=== PATIENT | male | born 1970 | race Caucasian/White ===

== ENCOUNTER → 2017-11-30 11:14 | Outpatient (CLI) | payer OTHER, SELFPAY ==
[2017-11-30 10:12] LABS: Pathologist Comment May follow
[2017-11-30 10:53] LABS: Synovial Fld Mononuclear WBC % 96.2 %; Synovial Fld Polynuclear WBC # 0.024 10^3/ul; Synovial Fld Polynuclear WBC % 3.8 %
[2017-11-30 11:46] LABS: AUTO B FLUID DILUENT BKGD CT WBC <0.1 RBC <0.01 (W<.1,R<.01)
[2017-11-30 11:47] LABS: Appearance /Synovial Fluid Clear (CLEAR); Color / Synovial Fluid Yellow (Pale Yellow); Source / Synovial Fluid RIGHT KNEE; Source- Body Fluid SYNOVIAL
[2017-11-30 11:48] LABS: RBC /Synovial Fluid 442 /mm3 (0)
[2017-11-30 11:59] LABS: Lymph 2 %; Monocyte /Synovial Fluid 2 %; Neutrophil 16 % (0-25); Other Cell /Synovial Fluid 80 %
[2017-11-30 12:03] LABS: Body Fluid QC Type(s) BF1Q,BF2Q
[2017-12-01 10:05] LABS: Pathologist Review Reviewed
== END ==
PROVIDERS: Visit Provider Orthopaedic Surgery
DX: S83.281D Other tear of lateral meniscus, current injury, right knee, subsequent encounter (principal); X58.XXXD Exposure to other specified factors, subsequent encounter
CPT/HCPCS: 87070; 87075; 87205; 89050; 89051; 89060

== ENCOUNTER 2018-03-21 10:23 | Day surgery (SDC) | payer OTHER, SELFPAY ==
[2018-03-21] VITALS (8 sets, daily range): BP systolic 131–149; BP diastolic 87–101; PULSE 61–75; RESP 16–18; TEMP 36.9–37.4; O2SAT 92–100; BMI 35.0
--- NOTE | 2018-03-21 13:07 | OP.PCM_ITS ---
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 Patient has failed conservative treatment MRI was questionable for meniscus tear on the medial side as well as some arthritis and some synovitis. Today he also complains of a lot of anterior knee pain specifically anterior lateral anterior medial worse going up steps also pain positive Celestin sign on the physical exam. Patient is failed conservative treatment like to proceed with right knee arthroscopy repair is indicated. Risks benefits and alternatives surgery discussed with patient. Risks including but not limited to blood loss, blood clot, infection, neurovascular injury, failure procedure, loss of life and loss of limb. Patient is aware would like proceed with right knee arthroscopy repair is indicated. Operative note Patient seen and examined preoperative holding area. Right knee was marked. Patient is brought to the operating room and placed supine on the operating room table. Signing, anesthesia, antibiotics were administered. The right knee was prepped and draped in usual sterile fashion with a tourniquet was around his upper thigh. We marked out our bony landmarks and our anterior lateral anterior medial portal placement. The right leg was elevated exsanguinated and tourniquet was raised her pressure 250 torr. Timeout was performed. We then began our diagnostic arthroscopy. We created an anterior lateral portal. We get evaluated the patellofemoral joint. He has some fibrillated changes grade 2 on the inferior aspect of his patella he had a 1 x 0.4 lesion on his trochlea there is no kissing lesion on the patella. The medial moved to the medial joint line. Excuse me before that we did look in the medial lateral gutters there were no loose bodies. Then moved to our medial joint line created an anterior medial portal under direct visualization. The portals were difficult to create as is he has extensive synovitis in his anterior medial anterior lateral gutters. We then used a shaver to resect back the shaved inside the extensive synovitis we had both anterior lateral anteromedial will better visualize his meniscus tear. He had unstable posterior horn meniscus tear that was probed. We then resected the unstable pieces and noted that he had actually had a right tear at the insertion of the meniscus onto the capsule. We inserted a rasp to rasp the tear and then placed to 360 FasT-Fix reverse curved devices and then reprobed the area which was stable after fixing with the 2 sutures and all inside anchors. ACL PCL were present within the notch. The lateral meniscus was intact as to but stable to probing with a little bit of fibrillated little bit of fraying this was gently resected with a shaver. The lateral meniscus was intact and stable probing. The popliteus tendon was intact. The lateral femoral condyle lateral tibial plateau were intact stable probing. His medial femoral condyle had grade 3 changes in about a 4-4 x 2 cm articulating aspect of his medial femoral condyle and some fibrillated changes on his medial tibial plateau and some thinning grade 3 thinning in the central portion as well. We may have moved back to the trochlear lesion. Sugar lesion again is identified we then used a curette to scrape off the calcified cartilage layer we then microfracture the trochlea with microfracture picks. We then turn off the water to ensure that we had a deep enough picks and we did which we did have. We then irrigated with copious copious amounts of sterile saline. Sterile dressings were the portals were closed with interrupted 4-0 nylon stitches the portals the sterile dressings were applied and a brace was applied 0-30 while seated and straight leg locked in extension during ambulation at night. Tourniquet was deflated for a total working time of 43 minutes. Patient tolerated procedure well there were no complications transferred to recovery room in stable condition. Next Postoperative note Pictures given to Pharmacy has prescriptions Call with increased pain numbness tingling or further issues arise Toe-touch weightbearing right leg This note was generated with [employer] dictation software. It may contain incorrect words, spelling, and punctuation that were not noted in checking the note before signing.
--- NOTE | 2018-03-21 13:07 | DCINST_ITS ---
Discharge Diet: No Restrictions - remove dressing in 4 days and apply bandaids to incision sites, call with increased pain, numbness, calf pain or if other issues arise, may get incision wet after 4 days, ttwb right leg with brace locked in extension and locked in extension at night; may move knee 0-30 in brace Discharge Activity: May Not Drive May shower in (days): 1 Ice area for (Minutes): 20 - Every hour while awake. Weight Bearing Status: Weight bearing as tolerated Keep extremity elevated above heart level: Operative Extremity Call your doctor if your incision/area has: Continuous Slow Oozing, Sudden Increased Bleeding, Increased Pain/ Swelling, Increased Redness, Foul Smelling Discharge Call your doctor if you observe: Fever of 101 or Higher, Coldness, Increased Pain, Numbness or Tingling, Change in Color, Calf discomfort Allergies/Adverse Reactions: Allergies No Known Allergies Allergy (Verified 03/14/18 11:03) Medications to take at Discharge Oxycodone HCl/Acetaminophen [Percocet 5/325] 1 - 2 tablet PO Q6H PRN PRN 5 Days #40 tablet 03/21/18 The following prescriptions were given: Oxycodone HCl/Acetaminophen [Percocet 5/325] 1 - 2 tablet PO Q6H PRN PRN 5 Days #40 tablet PRN Reason: Pain Primary Care Physician: Leonides Galvez MD [Primary Care Provider] - Test Results: Test results from this visit will be discussed in further detail at your follow- up appointment, if applicable. Please Follow Up With: Carley Deras, DO - [phone]
[2018-03-21] MEDS: Cefazolin 2 GM in 0.9% Normal Saline 100 ML IV (13:32)
[2018-03-21] MEDS: Mupirocin Ointment 22gm Tube 1 APPLIC (13:36)
[2018-03-21] MEDS: Bupiv/Epi 0.5% Mpf 30 ML Vial (14:45)
== END 2018-03-21 16:55 | disposition home or self-care (01) ==
LOC: SDC 10:25 → AC 10:25
PROVIDERS: Family Provider Family Medicine; PCP Family Medicine; Referring Provider Orthopaedic Surgery; Visit Provider Orthopaedic Surgery
PROC: (CPT 29870; principal; 2018-03-21 11:55)
DX: S83.241A Other tear of medial meniscus, current injury, right knee, initial encounter (principal); S83.281A Other tear of lateral meniscus, current injury, right knee, initial encounter; X58.XXXA Exposure to other specified factors, initial encounter; M17.11 Unilateral primary osteoarthritis, right knee; M65.861 Other synovitis and tenosynovitis, right lower leg
CPT/HCPCS: 01400; 29876; 29879; 29881; J7120; J2405

== ENCOUNTER → 2018-03-26 13:17 | Outpatient (CLI) | payer OTHER, SELFPAY ==
--- NOTE | 2018-03-26 13:20 | VDLE_ITS ---
[id number] VL^VDUL^Venous Duplex US- Unilateral [id number] [facility] Venous Doppler [address] [place] [address] Ordering Physician: Timo Roman TAG_ENDED [facility] Name: MIKY CHICAS Study Date: 03/26/2018 01:35 PM Patient Location: [facility] : 1970 Gender: Male Age: 47 yrs Ethnicity: C History: RT meniscus repair 03/21/2018. TAG_ENDED Reason For Study: RLE swelling RIGHT LEFT GSV is normal. CFV is compressible, spontaneous, phasic, CFV is compressible, spontaneous, phasic, competent, and demonstrates normal competent and demonstrates normal augmentation. augmentation. FV is compressible, spontaneous, phasic, competent and demonstrates normal augmentation. POP V is compressible, spontaneous, phasic, competent and demonstrates normal augmentation. T/P Trunk is compressible. RT PerV is compressible. PTV is non compressible. Gastrocnemius V is dilated and partially compressible. Procedure Exam performed in department. The exam was diagnostic. A preliminary report was called and/or faxed to Timo Roman PA office @ 1:55 pm. [facility] will call in Rx to PT's pharmacy and will call patient with instructions. <> Interpretation Summary Acute deep vein thrombosis is noted in the right posterior tibial vein. Acute deep vein thrombosis is noted in the right gastrocnemius vein. The remainder of the right lower extremity deep venous system is patent and compressible. Valvular competence appears intact within the proximal deep venous system on the right . The right greater saphenous vein appears patent and compressible segmentally. [facility] TAG_ENDED Ordering Physician: Timo Roman Referring Physician: Carlos Galvez Performed By: Nahomy Ribeiro, [place], RVT
== END ==
PROVIDERS: Family Provider Family Medicine; PCP Family Medicine; Referring Provider Physician Assistant; Visit Provider Physician Assistant
DX: I82.441 Acute embolism and thrombosis of right tibial vein (principal); I82.491 Acute embolism and thrombosis of other specified deep vein of right lower extremity
CPT/HCPCS: 93971

== ENCOUNTER 2018-05-07 16:08 | Emergency (ER) | payer OTHER, SELFPAY ==
[2018-05-07 16:09] VITALS: BP 133/83; PULSE 75; RESP 16; TEMP 36.4; O2SAT 96; BMI 35.6
--- NOTE | 2018-05-07 16:19 | VDLE_ITS ---
Reason For Study: LEG SWELLING RIGHT GSV is normal. CFV is compressible, spontaneous, phasic, competent and demonstrates normal augmentation. FV is compressible, spontaneous, phasic, competent and demonstrates normal augmentation. POP V is compressible, spontaneous, phasic, competent and demonstrates normal augmentation. T/P Trunk is compressible. PTV is compressible. RT PerV is compressible. Interpretation Summary Deep veins of the right lower extremity are patent and compressible segmentally. There is no evidence of right lower extremity deep vein thrombosis. Valvular competence appears intact within the proximal deep venous system on the right . The right greater saphenous vein appears patent and compressible segmentally. Ordering Physician: Maureen Lee Referring Physician: Carlos Galvze MD Performed By: Chandrika Laird RVT
--- NOTE | 2018-05-07 16:19 | ED.VISSUMM ---
- ER Visit Summary Date of Service: 05/07/18 Chief Complaint: [] Right leg and calf pain started yesterday History of Present Illness: The patient is a 47 M [] of right knee arthroscope October develop DVT postop, in that leg, he was found and started on Xarelto his symptoms resolved after a few days and then he reports the recurrence of the symptoms yesterday he was in physical therapy report of the above to them and he was sent in for evaluation no trauma no fever no cough no other complaints no symptoms in the in the left leg no history of the PE Physical Examination: [] 133/80 396% on room air afebrile General, no distress resting comfortably HEENT is generally unremarkable The neck is supple no adenopathy Cardiovascular, regular rate and rhythm Lungs, clear bilateral Abdomen, soft nontender Extremities, he has some edema to the knees down through the calf he has some mild pain over the posterior calf he has a strong dorsalis pedis pulse normal cap refill and sensation he has full range motion at the ankle and foot, he has slight decreased range of motion to flexion extension at the knee but no pain no signs of infection or recurrent trauma Neurologic, awake alert answering questions appropriately moving all 4 extremities Test Results: [] Emergency Department Course and Treatment: [] His complaints duplex scan right leg Duplex scan of the right leg shows no DVT per tech, in fact the prior DVT has resolved, no was any fluid or mass apparent in any of the images where she scanned I explained all of the above to the patient and I explained the etiology of the edema is unclear he should rest ice elevate the extremity and follow-up with orthopedic surgeon return for change in symptoms and continue his all of his meds including the Xarelto Treatment Plan: [] Disposition: [] Stable home Impression: [] rt Lower extremity edema etiology unclear, recent right knee surgery This note was generated with [employer] dictation software. It may contain incorrect words, spelling, and punctuation that were not noted in review of the chart prior to signing ED Disposition - Plan for ED Patient: Chief Complaint: Lower Extremity Injury Referrals: Leonides Galvez MD [Primary Care Provider] -
--- NOTE | 2018-05-07 17:24 | ED.DEP ---
ED Disposition - Plan for ED Patient: Chief Complaint: Lower Extremity Injury Instructions: ED Contusion Lower Ext Referrals: Leonides Galvez MD [Primary Care Provider] - Additional Instructions: Please follow-up with all of her outpatient providers
[2018-05-07 17:36] VITALS: RESP 16
--- NOTE | 2018-05-07 17:37 | ED.RN ---
REVIEWED D/C INSTRUCTIONS, FOLLOW UP CARE, AND S/S THAT WOULD WARRANT A RETURN TO THE ED WITH PT. PT VERBALIZED AN UNDERSTANDING AND DENIES FURTHER QUESTIONS FOR THIS RN. PT SKIN P/W/D, RESP EVEN AND UNLABORED, PT A&O X3, NO DISTRESS NOTED. PT AMBULATED OUT OF ED, GAIT STEADY.
--- OUTSIDE RECORDS SUMMARY | 2018-06-24 02:25 | XMS RPT_ITS ---
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 ACL PCL were present within the notch. The lateral meniscus was intact as to but stable to probing with a little bit of fibrillated little bit of fraying this was gently resected with a shaver. The lateral meniscus was intact and stable probing. The popliteus tendon was intact. The lateral femoral condyle lateral tibial plateau were intact stable probing. His medial femoral condyle had grade 3 changes in about a 4-4 x 2 cm articulating aspect of his medial femoral condyle and some fibrillated changes on his medial tibial plateau and some thinning grade 3 thinning in the central portion as well. We may have moved back to the trochlear lesion. Sugar lesion again is identified we then used a curette to scrape off the calcified cartilage layer we then microfracture the trochlea with microfracture picks. We then turn off the water to ensure that we had a deep enough picks and we did which we did have. We then irrigated with copious copious amounts of sterile saline. Sterile dressings were the portals were closed with interrupted 4-0 nylon stitches the portals the sterile dressings were applied and a brace was applied 0-30 while seated and straight leg locked in extension during ambulation at night. Tourniquet was deflated for a total working time of 43 minutes. Patient tolerated procedure well there were no complications transferred to recovery room in stable condition. Next Postoperative note Pictures given to Pharmacy has prescriptions Call with increased pain numbness tingling or further issues arise Toe-touch weightbearing right leg This note was generated with ZOCKO dictation software. It may contain incorrect words, spelling, and punctuation that were not noted in checking the note before signing. 03/28/18 1411 <Electronically signed by Carley Deras DO> Date Carley Deras DO CC: Carley Deras DO; Carlos Galvez MD Signed VENOUS DUPLEX LOWER Observed: 03/27/2018 Status: F Source: [place] EXTREMITY 3:04 PM [facility] REPOSITORY [facility] Cardiovascular Services [address] [place] [address] Venous Duplex US, Unilateral 03/26/18 1335 MR#: [id number] Acct: [id number] Name: MIKY CARLISLE Rep #: [id number] : 1970 47 From: Ed Avina MD Attending Dr: LUIS Pack Status: REG CLI Ordering Dr: Timo Roman Date: 03/26/18 Location: [facility] Sex: M C Admitted: [id number] TAG_START Cardiovascular Services Venous Doppler [address] [place], [place] [address] Ordering Physician: Timo Roman TAG_ENDED TAG_START Name: STANISLAV CARLISLEMARK Schneider Study Date: 03/26/2018 01:35 PM Patient Location: [facility] : 1970 Gender: Male Age: 47 yrs Ethnicity: C History: RT meniscus repair 03/21/2018. TAG_ENDED Reason For Study: RLE swelling RIGHT LEFT GSV is normal. CFV is compressible, spontaneous, phasic, CFV is compressible, spontaneous, phasic, competent, and demonstrates normal competent and demonstrates normal augmentation. augmentation. FV is compressible, spontaneous, phasic, competent and demonstrates normal augmentation. POP V is compressible, spontaneous, phasic, competent and demonstrates normal augmentation. T/P Trunk is compressible. RT PerV is compressible. PTV is non compressible. Gastrocnemius V is dilated and partially compressible. Procedure Exam performed in department. The exam was diagnostic. A preliminary report was called and/or faxed to Timo SMITH office @ 1:55 pm. [facility] will call in Rx to PT's pharmacy and will call patient with instructions. <> Interpretation Summary Acute deep vein thrombosis is noted in the right posterior tibial vein. Acute deep vein thrombosis is noted in the right gastrocnemius vein. The remainder of the right lower extremity deep venous system is patent and compressible. Valvular competence appears intact within the proximal deep venous system on the right . The right greater saphenous vein appears patent and compressible segmentally. TAG_START TAG_ENDED Ordering Physician: Timo Roman Referring Physician: Carlos Galvez Performed By: Nahomy Ribeiro, CHEYANNE, RVT 03/27/18 1504 Date Ed Avina MD CC: LUIS Roman; Carlos Galvez MD Date Dictated: 03/26/18 1335 Date Transcribed: 03/27/18 1504 Head Miller: Signed ORTHOPEDIC VISIT Observed: 03/26/2018 Status: F Source: [address] REPORT 1:40 PM [facility] REPOSITORY [facility] Orthopaedics AND Sports Medicine [address] [place] [address] OFFICE VISIT Date of Service: 03/26/18 MR#: [id number] Acct: [id number] Name: MIKY CARLISLE Rep #: [id number] : 1970 Provider: LUIS Roman Age/Sex: 47/M Location[place] [facility] [place] [place] Status: Signed Intake Intake Visit Reasons: RIGHT KNEE Accompanied by: Is patient in pain?: Yes Allergies No Known Allergies Allergy (Verified 03/14/18 11:03) PFSH Surgical History right knee plica removal (Inactive) Family History Other Heart disease Myocardial infarction Social History Smoking Status: Never smoker HPI RIGHT KNEE: Details: MIKY CARLISLE is a 47 year old M here today for f/u 03/21/18 right knee scope with chondroplasty. He states he is not having hand knee pain, using no meds but he does have significant calf pain today. Swelling of the lower leg and ankle with some diffuse redness, no nausea, sob or fevers to note. He has been compliant with his brace locked and has been nwb. Denies numbness, tingling or other associated symptoms. ROS Musc Reports joint pain, Reports joint swelling, Reports stiffness, Reports decreased muscle mass, Reports limited joint movement, Reports abnormal walking, Reports as per HPI Neuro Yes abnormal walking Ortho Exam Right Knee Skin/Wound: Yes healing, Yes wound care (Dressing was removed. Incision sites were inspected.), No suture/mark removed Swelling: Yes Homans Sign: No Quad Atrophy: No KNEE: Patient is currently in a T-ROM brace locked in extension. Incision sites are clean and dry without any erythema, inflammation, or discharge to indicate infection. He does have some mild generalized swelling of the knee. He has moderate to severe tenderness of the calf on palpation. He really does not have pain with Eleazar/dorsiflexion at the same time he does have some swelling in the ankle as well. Assessment AND Plan Problems 1. Other tear of lateral meniscus, current injury, right knee, initial encounter S83.281A 2. Status post medial meniscus repair of right knee Z98.890 Plan Today in the office were able to remove the bulky dressing to evaluate the incision sites. The sites normal-appearing showing no signs of infection. He did have of calf tenderness today with a lot of guarding and therefore we will go ahead and order a Doppler study of the right lower extremity. He is to keep the extremity elevated and continue to ice the knee. Continue to monitor the incision sites and notify of any erythema, inflammation, or discharge. Patient's brace was adjusted once the bulky dressing was removed. Patient already has his 2-week post-op appointments made Orders Orders: Plan Detail Follow Up 10 Days Coding Level of Care Code Global Post Op Diagnoses Other tear of lateral meniscus, current injury, right knee, initial encounter S83.281A Status post medial meniscus repair of right knee Z98.890 03/26/18 1340 <Electronically signed by Timo SMITH> Date Timo SMITH Cosigner Signature: Date (if applicable) CC: DISCHARGE INSTRUCTION Observed: 03/21/2018 Status: F Source: [place] 2:35 PM [facility] REPOSITORY [facility] Medical Records Department [address] [place] [address] Instructions for Home/Discharge Instructions 03/21/18 1306 MR#: [id number] Acct: [id number] Name: MIKY CARLISLE Rep #: [id number] : 1970 47 From: Carley Deras DO PCP: Carlos Galvez MD Status: REG SDC Discharge Diet: No Restrictions - remove dressing in 4 days and apply bandaids to incision sites, call with increased pain, numbness, calf pain or if other issues arise, may get incision wet after 4 days, ttwb right leg with brace locked in extension and locked in extension at night; may move knee 0-30 in brace Discharge Activity: May Not Drive May shower in (days): 1 Ice area for (Minutes): 20 - Every hour while awake. Weight Bearing Status: Weight bearing as tolerated Keep extremity elevated above heart level: Operative Extremity Call your doctor if your incision/area has: Continuous Slow Oozing, Sudden Increased Bleeding, Increased Pain/ Swelling, Increased Redness, Foul Smelling Discharge Call your doctor if you observe: Fever of 101 or Higher, Coldness, Increased Pain, Numbness or Tingling, Change in Color, Calf discomfort Allergies/Adverse Reactions: Allergies No Known Allergies Allergy (Verified 03/14/18 11:03) Medications to take at Discharge Oxycodone HCl/Acetaminophen [Percocet 5/325] 1 - 2 tablet PO Q6H PRN PRN 5 Days #40 tablet 03/21/18 The following prescriptions were given: Oxycodone HCl/Acetaminophen [Percocet 5/325] 1 - 2 tablet PO Q6H PRN PRN 5 Days #40 tablet PRN Reason: Pain Primary Care Physician: Leonides Gavlez MD [Primary Care Provider] - Test Results: Test results from this visit will be discussed in further detail at your follow-up appointment, if applicable. Please Follow Up With: Carley Deras DO - [phone] 03/21/18 5299 <Electronically signed by Carley Deras DO> Date Carley Deras DO CC: Carlos Galvez MD ORTHOPEDIC VISIT Observed: 02/26/2018 Status: F Source: [place] REPORT 8:21 AM [facility] REPOSITORY [facility] Orthopaedics AND Sports Medicine [address] [place] [address] OFFICE VISIT Date of Service: 02/23/18 MR#: [id number] Acct: [id number] Name: MIKY CARLISLE Rep #: [id number] : 1970 Provider: Carley Deras DO Age/Sex: 47/M Location: [facility] [place] [place] Status: Signed Intake Intake Visit Reasons: RIGHT KNEE Is patient in pain?: Yes Allergies No Known Allergies Allergy (Verified 01/16/18 15:34) PFSH Surgical History right knee plica removal (Inactive) Family History Other Heart disease Myocardial infarction Social History Smoking Status: Never smoker HPI RIGHT KNEE: Details: MIKY CARLISLE is a 47 year old M here today for right knee pain, mostly in the posterior knee and lateral knee. He continues to have pain with stairs and ambulation. Denies numbness, tingling or other associated symptoms. ROS Musc Reports joint pain, Reports stiffness, Reports as per HPI Ortho Exam Right Knee Skin/Wound: Yes CDI Contralateral Normal: Yes Swelling: Yes Homans Sign: No Knee ROM: Yes ROM-Extension -20 to 0, Yes ROM-Flexion 0-140 Examination: Yes Lat jt line tenderness, Yes Pain with flexion Assessment AND Plan 1. Tear of lateral meniscus of right knee, current, unspecified tear type, subsequent encounter B98.941S Plan Reviewed the pre-operative plans with the patient. Risks and benefits of the procedure were fully explained, including but not limited to infection, neurovascular injury, continued pain, arthritis, stiffness, need for further surgery, re-injury, DVT, PE, general risks of anesthesia, and loss of limb or life. The patient understands all the risks and does wish to proceed with written consent. Follow up post op or sooner if pain, swelling, numbness or associated symptoms, or concerns develop. All questions answered. Patient in agreement of plan. Coding Level of Care Code Off vis,est,level 3 Diagnoses Tear of lateral meniscus of right knee, current, unspecified tear type, subsequent encounter S80.373T Encounter type: subsequent encounter Meniscus tear of knee type: unspecified type Tear current or old: current 02/26/18 0821 <Electronically signed by Carley Deras DO> Date Carley Deras DO Cosigner Signature: Date (if applicable) CC: PROGRESS Observed: 02/12/2018 Status: COMPLETED Source: [place] 8:54 AM [facility] O ID: [id number] Author: Tayler (Indy) Michael Service: (none) Author Type: Nurse Practitioner Type: Progress Notes Filed: 02/12/2018 9:22 AM Note Text: Subjective The history is provided by the patient. No assistant speech language pathologist was used. HPI Miky Carlisle is a 47 year old male who presents today for CC of nasal congestion, sore throat, and left ear pain. He is also having runny nose Onset/Duration: 2 days Alleviating/Treatment: Decongestant, and nasal spray. Aggravating: Lying down Risk factors: [employer] at [employer] BP 138/84 Pulse 66 Temp 36.2 ?C (97.1 ?F) (Tympanic) Resp 16 Wt 126.8 kg (279 lb 9.6 oz) SpO2 95% ALLERGIES No Known Allergies There is no problem list on file for this patient. No family history on file. Social History Marital status: Spouse name: Years of education: Number of children: Social History Main Topics Smoking status: Never Smoker Smokeless tobacco: Never Used No past medical history on file. Review of Systems Constitutional: Negative. Negative for chills, fever and malaise/fatigue. HENT: Positive for congestion, ear pain (left), sinus pain and sore throat. Respiratory: Positive for cough. Negative for sputum production, shortness of breath and wheezing. Cardiovascular: Negative for chest pain. Musculoskeletal: Negative for myalgias. Skin: Negative for rash. Neurological: Positive for headaches. Objective Physical Exam Constitutional: He is well-developed, well-nourished, and in no distress. HENT: Head: Normocephalic and atraumatic. Right Ear: External ear and ear canal normal. Tympanic membrane is bulging. Tympanic membrane is not injected, not erythematous and not retracted. A middle ear effusion (serous) is present. Left Ear: External ear and ear canal normal. Tympanic membrane is bulging. Tympanic membrane is not injected, not erythematous and not retracted. A middle ear effusion (serous) is present. Nose: Mucosal edema and rhinorrhea present. Right sinus exhibits maxillary sinus tenderness. Right sinus exhibits no frontal sinus tenderness. Left sinus exhibits maxillary sinus tenderness. Left sinus exhibits no frontal sinus tenderness. Mouth/Throat: Uvula is midline and mucous membranes are normal. Posterior oropharyngeal erythema present. No oropharyngeal exudate, posterior oropharyngeal edema or tonsillar abscesses. Eyes: Pupils are equal, round, and reactive to light. Conjunctivae and EOM are normal. Neck: Normal range of motion. Cardiovascular: Normal rate, regular rhythm and normal heart sounds. Pulmonary/Chest: Effort normal and breath sounds normal. No respiratory distress. He has no decreased breath sounds. He has no wheezes. He has no rhonchi. He has no rales. Lymphadenopathy: Head (right side): No submental, no submandibular, no tonsillar, no preauricular and no posterior auricular adenopathy present. Head (left side): No submental, no submandibular, no tonsillar, no preauricular and no posterior auricular adenopathy present. He has no cervical adenopathy. Right cervical: No posterior cervical adenopathy present. Left cervical: No posterior cervical adenopathy present. Right: No supraclavicular adenopathy present. Left: No supraclavicular adenopathy present. Skin: Skin is warm and dry. Psychiatric: Affect normal. Nursing note and vitals reviewed. ASSESSMENT/PLAN: 1. URI with cough and congestion - ICD9: 465.9, ICD10: J06.9 - Discussed viral etiology and rationale for treatment. Rest, nutritious diet, Motrin or Tylenol as needed for fever or pain. Salt water gargles, chloraseptic spray or lozenges as needed for sore throat. Nasal saline irrigation at least 2 x day. Drink at least 8 glasses of fluids per day that aren't caffeinated. Use a humidifier in your room at night. A cold normally lasts 7-10 days. If your symptoms are lasting longer, develop fever, or worsening by that time instead of improving then return to clinic or follow up with PCP for re-evaluation. Tylenol (generic acetaminophen) 500 mg-2 tabs every 8 hrs. as needed for fever and aches Ibuprofen 600 mg (3-200mg tablets) every 6 hours -Mucinex (generic is fine) 1200 mg twice daily to help with cough and to thin out mucus -http://www.choosinghamburgly.org/patient-resources/antibiotics/. This link shares information about when antibiotics may help and when they may not. - NMUDUERIZIJEMIT-LJNYAHZITYUSMKG-VA 2 MG-30 MG-10 MG/5 ML SYRUP DO NOT take any other OTC cough or cold medication while taking the prescription Bromfed DM. It is ok to take an OTC pain reliever/fever cell attendant helper though such as advil or tylenol as needed. Take 5-10 ml po q6h prn * Seek medical care immediately, call 911, go to ER if you have chest pain, difficulty breathing, shortness of breath, inability to swallow. Diagnosis and treatment plan were discussed and questions were answered to the patient's satisfaction. Pt acknowledged understanding of concepts and follow up plan. Specific signs and symptoms that would indicate the need for higher level of care were discussed in detail warranting prompt ER evaluation. Tayler Rodriguez APRN.INDY CNOV Observed: 02/12/2018 Status: COMPLETED Source: [place] 8:15 AM [facility] REPOSITORY Office Visit ([facility]) MIKY CARLISLE ([id number]) 1970 M Date Time Provider Department 02/12/18 8:15 AM TAYLER RODRIGUEZ (INDY) [facility] During your visit today, we recorded the following information about you: Temperature Pulse Respiration Blood pressure 97.1 degrees 66/minute 16/minute 138/84 Weight 126.8 kg Tayler Rodriguez APRN.ADDICTIONS COUNSELOR ASSISTANT 02/12/2018 9:22 AM Signed Subjective The history is provided by the patient. No assistant speech language pathologist was used. HPI Miky Carlisle is a 47 year old male who presents today for CC of nasal congestion, sore throat, and left ear pain. He is also having runny nose Onset/Duration: 2 days Alleviating/Treatment: Decongestant, and nasal spray. 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 No family history on file. Social History Marital status: Spouse name: Years of education: Number of children: Social History Main Topics Smoking status: Never Smoker Smokeless tobacco: Never Used No past medical history on file. Review of Systems Constitutional: Negative. Negative for chills, fever and malaise/fatigue. HENT: Positive for congestion, ear pain (left), sinus pain and sore throat. Respiratory: Positive for cough. Negative for sputum production, shortness of breath and wheezing. Cardiovascular: Negative for chest pain. Musculoskeletal: Negative for myalgias. Skin: Negative for rash. Neurological: Positive for headaches. Objective Physical Exam Constitutional: He is well-developed, well-nourished, and in no distress. HENT: Head: Normocephalic and atraumatic. Right Ear: External ear and ear canal normal. Tympanic membrane is bulging. Tympanic membrane is not injected, not erythematous and not retracted. A middle ear effusion (serous) is present. Left Ear: External ear and ear canal normal. Tympanic membrane is bulging. Tympanic membrane is not injected, not erythematous and not retracted. A middle ear effusion (serous) is present. Nose: Mucosal edema and rhinorrhea present. Right sinus exhibits maxillary sinus tenderness. Right sinus exhibits no frontal sinus tenderness. Left sinus exhibits maxillary sinus tenderness. Left sinus exhibits no frontal sinus tenderness. Mouth/Throat: Uvula is midline and mucous membranes are normal. Posterior oropharyngeal erythema present. No oropharyngeal exudate, posterior oropharyngeal edema or tonsillar abscesses. Eyes: Pupils are equal, round, and reactive to light. Conjunctivae and EOM are normal. Neck: Normal range of motion. Cardiovascular: Normal rate, regular rhythm and normal heart sounds. Pulmonary/Chest: Effort normal and breath sounds normal. No respiratory distress. He has no decreased breath sounds. He has no wheezes. He has no rhonchi. He has no rales. Lymphadenopathy: Head (right side): No submental, no submandibular, no tonsillar, no preauricular and no posterior auricular adenopathy present. Head (left side): No submental, no submandibular, no tonsillar, no preauricular and no posterior auricular adenopathy present. He has no cervical adenopathy. Right cervical: No posterior cervical adenopathy present. Left cervical: No posterior cervical adenopathy present. Right: No supraclavicular adenopathy present. Left: No supraclavicular adenopathy present. Skin: Skin is warm and dry. Psychiatric: Affect normal. Nursing note and vitals reviewed. ASSESSMENT/PLAN: 1. URI with cough and congestion - ICD9: 465.9, ICD10: J06.9 - Discussed viral etiology and rationale for treatment. Rest, nutritious diet, Motrin or Tylenol as needed for fever or pain. Salt water gargles, chloraseptic spray or lozenges as needed for sore throat. Nasal saline irrigation at least 2 x day. Drink at least 8 glasses of fluids per day that aren't caffeinated. Use a humidifier in your room at night. A cold normally lasts 7-10 days. If your symptoms are lasting longer, develop fever, or worsening by that time instead of improving then return to clinic or follow up with PCP for re-evaluation. Tylenol (generic acetaminophen) 500 mg-2 tabs every 8 hrs. as needed for fever and aches Ibuprofen 600 mg (3-200mg tablets) every 6 hours -Mucinex (generic is fine) 1200 mg twice daily to help with cough and to thin out mucus -http://www.choosingwisely.org/patient-resources/antibiotics/. This link shares information about when antibiotics may help and when they may not. - MONWWEJHCMGAOET-LKZOPXOQNFFYPVY-XK 2 MG-30 MG-10 MG/5 ML SYRUP DO NOT take any other OTC cough or cold medication while taking the prescription Bromfed DM. It is ok to take an OTC pain reliever/fever cell attendant helper though such as advil or tylenol as needed. Take 5-10 ml po q6h prn * Seek medical care immediately, call 911, go to ER if you have chest pain, difficulty breathing, shortness of breath, inability to swallow. Diagnosis and treatment plan were discussed and questions were answered to the patient's satisfaction. Pt acknowledged understanding of concepts and follow up plan. Specific signs and symptoms that would indicate the need for higher level of care were discussed in detail warranting prompt ER evaluation. TREVOR Quesada APRN.CNP 02/12/2018 9:00 AM Signed ASSESSMENT/PLAN: 1. URI with cough and congestion - ICD9: 465.9, ICD10: J06.9 - Discussed viral etiology and rationale for treatment. Rest, nutritious diet, Motrin or Tylenol as needed for fever or pain. Salt water gargles, chloraseptic spray or lozenges as needed for sore throat. Nasal saline irrigation at least 2 x day. Drink at least 8 glasses of fluids per day that aren't caffeinated. Use a humidifier in your room at night. A cold normally lasts 7-10 days. If your symptoms are lasting longer, develop fever, or worsening by that time instead of improving then return to clinic or follow up with PCP for re-evaluation. Tylenol (generic acetaminophen) 500 mg-2 tabs every 8 hrs. as needed for fever and aches Ibuprofen 600 mg (3-200mg tablets) every 6 hours -Mucinex (generic is fine) 1200 mg twice daily to help with cough and to thin out mucus -http://www.choosingwisely.org/patient-resources/antibiotics/. This link shares information about when antibiotics may help and when they may not. - YJDXTHHACCCNZKO-FMKZYIQAYWOEMDY-HC 2 MG-30 MG-10 MG/5 ML SYRUP DO NOT take any other OTC cough or cold medication while taking the prescription Bromfed DM. It is ok to take an OTC pain reliever/fever cell attendant helper though such as advil or tylenol as needed. Take 5-10 ml po q6h prn * Seek medical care immediately, call 911, go to ER if you have chest pain, difficulty breathing, shortness of breath, inability to swallow. Referring Provider: SELF [200] Allergies As of Date: 02/12/2018 (No Known Allergies) Date Reviewed: 02/12/2018 Reviewed by: Tayler (Real Estate Transaction Coordinator) Michael - Fully Assessed Reason for Visit: sinus congestion, ST and left ear pain [Other] Cmt: x 2 days Primary Visit Diagnosis:URI with cough and congestion [J06.9] Order(s):Kbxavflnuqgcret-Ybwmfbwxj-KJ (BROMFED DM) 2-30-10 mg/5 mL syrupTake 5 mL by mouth four times daily as needed.Disp: 120 mLRfl: 0 Prescriptions as of 02/12/2018 Sig: FLUTICASONE 50 MCG/ACTUATION * Use 2 Sprays in each nostril * BROMPHENIRAMINE-PSEUDOEPHEDRI* Take 5 mL by mouth four times* Problem List As Of Date: 02/12/2018 (None) Other instructions from your clinician: ASSESSMENT/PLAN: 1. URI with cough and congestion - ICD9: 465.9, ICD10: J06.9 - Discussed viral etiology and rationale for treatment. Rest, nutritious diet, Motrin or Tylenol as needed for fever or pain. Salt water gargles, chloraseptic spray or lozenges as needed for sore throat. Nasal saline irrigation at least 2 x day. Drink at least 8 glasses of fluids per day that aren't caffeinated. Use a humidifier in your room at night. A cold normally lasts 7-10 days. If your symptoms are lasting longer, develop fever, or worsening by that time instead of improving then return to clinic or follow up with PCP for re-evaluation. Tylenol (generic acetaminophen) 500 mg-2 tabs every 8 hrs. as needed for fever and aches Ibuprofen 600 mg (3-200mg tablets) every 6 hours -Mucinex (generic is fine) 1200 mg twice daily to help with cough and to thin out mucus -http://www.choosingwisely.org/patient-resources/antibiotics/. This link shares information about when antibiotics may help and when they may not. - HPRUOLLGQIEYLKA-VQYXKMJJMWYTZOC-MU 2 MG-30 MG-10 MG/5 ML SYRUP DO NOT take any other OTC cough or cold medication while taking the prescription Bromfed DM. It is ok to take an OTC pain reliever/fever cell attendant helper though such as advil or tylenol as needed. Take 5-10 ml po q6h prn * Seek medical care immediately, call 911, go to ER if you have chest pain, difficulty breathing, shortness of breath, inability to swallow. Prescriptions ordered this encounter Disp Refills Start End TCWSVZGVFWDQFIP-JHZVBRTTTCRYKTG-MS 2* 120 * 0 02/12/2018 Route: ORAL Sig: Take 5 mL by mouth four times daily as needed. Encounter Status:Closed by TAYLER RODRIGUEZ CNP on 02/12/18 ORTHOPEDIC VISIT Observed: 01/25/2018 Status: F Source: [address] REPORT 4:34 PM [facility] REPOSITORY [facility] Orthopaedics AND Sports Medicine [address] [place] [address] OFFICE VISIT Date of Service: 01/16/18 MR#: [id number] Acct: [id number] Name: MIKY CARLISLE Rep #: [id number] : 1970 Provider: Carley Deras DO Age/Sex: 47/M [place] [facility] [place] [place] Status: Signed Intake Intake Visit Reasons: RIGHT KNEE Is patient in pain?: Yes Allergies No Known Allergies Allergy (Verified 01/16/18 15:34) PFSH Surgical History right knee plica removal (Inactive) Family History Other Heart disease Myocardial infarction Social History Smoking Status: Never smoker HPI RIGHT KNEE: Details: MIKY CARLISLE is a 47 year old M here today for continued right knee pain and swelling. He states that his pain is over his deep posterior knee. Patient has swelling that returned shortly after his last injection. He had an injection on 11/30/17 which continues to help with the pain but he has knee swelling. He denies any popping, clicking or instability. Patient attempted to run a few weeks ago and was unable to due to his pain. Patient would like to discuss his options. ROS Const Reports system reviewed and no additional complaints, except as docu Eyes Reports system reviewed and no additional complaints, except as docu ENT Reports system reviewed and no additional complaints, except as docu Card Reports system reviewed and no additional complaints, except as docu Resp Reports system reviewed and no additional complaints, except as docu GI Reports system reviewed and no additional complaints, except as docu Reports system reviewed and no additional complaints, except as docu Musc Reports joint pain, Reports joint swelling Skin/Breast Reports system reviewed and no additional complaints, except as docu Neuro Yes system reviewed and no additional complaints, except as docu Psych Reports system reviewed and no additional complaints, except as docu Endo Reports system reviewed and no additional complaints, except as docu Ortho Exam Right Knee Skin/Wound: Yes CDI Contralateral Normal: No Swelling: Yes Homans Sign: No 2+: Effusion Knee ROM: Yes ROM-Extension -20 to 0, Yes ROM-Flexion 0-140 Examination: Yes Lat jt line tenderness, Yes Pain with flexion, Yes Crepitus, Yes Med jt line tenderness Office Procedures Ortho Aspiration Ortho Injections/Aspirations Yes Knee Right Details: Obtained consent for aspiration. Under sterile conditions, aspirated 14cc from the patients right knee. The patient tolerated the aspiration well without any noted complications. Patient should call our office if redness develops, pain worsens or if they have any concerns. Assessment AND Plan 1. Tear of lateral meniscus of right knee, current, unspecified tear type, subsequent encounter S81.496P Plan Reviewed the pre-operative plans with the patient. Risks and benefits of the procedure were fully explained, including but not limited to infection, neurovascular injury, continued pain, arthritis, stiffness, need for further surgery, re-injury, DVT, PE, general risks of anesthesia, and loss of limb or life. The patient understands all the risks and does wish to proceed with written consent for knee arthroscopy, synovectomy, lat men debridement vs repair. Reviewed conservative care options of repeat injection in 6wks, aspirate today, and also discussed a scope for debridement. Reviewed the post op restrictions. Explained he could continue to have effusion after surgery as well. Follow up or sooner if pain, swelling, numbness or associated symptoms, or concerns develop. All questions answered. Patient in agreement of plan. Plan Detail Other Orders Orders: Coding Level of Care Code Off vis,est,level 4 Diagnoses Tear of lateral meniscus of right knee, current, unspecified tear type, subsequent encounter J21.318K Encounter type: subsequent encounter Meniscus tear of knee type: unspecified type Tear current or old: current Additional Codes residential treatment counselor.knee ([id number]) 01/25/18 7394 <Electronically signed by Carley Deras DO> Date Carley Deras DO Cosigner Signature: Date (if applicable) CC: ORTHOPEDIC VISIT Observed: 11/30/2017 Status: F Source: [place] REPORT 10:51 AM [facility] REPOSITORY [facility] Orthopaedics AND Sports Medicine [address] [facility] [address] [place] [address] OFFICE VISIT Date of Service: 11/30/17 MR#: [id number] Acct: [id number] Name: MIKY CARLISLE Rep #: [id number] : 1970 Provider: Carley Deras DO Age/Sex: 47/M [place] [facility] [place] [place] Status: Signed Intake Intake Visit Reasons: RIGHT KNEE PAIN Is patient in pain?: Yes Allergies No Known Allergies Allergy (Verified 11/30/17 08:09) PFSH Surgical History right knee plica removal (Inactive) Family History Other Heart disease Myocardial infarction Social History Smoking Status: Never smoker HPI RIGHT KNEE PAIN: Details: MIKY CARLISLE is a 47 year old M here today for right knee pain. Patient started having increased right knee pain about 3 weeks ago. He denies any known injury. Patient complains of pain over his posterior knee. He notes he has swelling over his quad and anterior knee. Patient has a snap over his posteior knee. His pain increases with standing after sitting for long periods of time. Patient feels like is unable to fully straighten his knee after standing. His knee will snap and then he can fully straighten it. Patient had an MRI in April. Denies numbness, tingling or other associated symptoms. ROS Const Reports system reviewed and no additional complaints, except as docu Eyes Reports system reviewed and no additional complaints, except as docu ENT Reports system reviewed and no additional complaints, except as docu Card Reports system reviewed and no additional complaints, except as docu Resp Reports system reviewed and no additional complaints, except as docu GI Reports system reviewed and no additional complaints, except as docu Reports system reviewed and no additional complaints, except as docu Musc Reports joint pain, Reports joint swelling, Reports stiffness Skin/Breast Reports system reviewed and no additional complaints, except as docu Neuro Yes system reviewed and no additional complaints, except as docu Psych Reports system reviewed and no additional complaints, except as docu Endo Reports system reviewed and no additional complaints, except as docu Ortho Exam Right Knee Skin/Wound: Yes CDI Contralateral Normal: Yes Swelling: Yes Homans Sign: No 1+: Effusion Knee ROM: Yes ROM-Extension -20 to 0, Yes ROM-Flexion 0-140 Examination: Yes Pain with flexion Office Procedures Ortho Injections Injections Yes Knee Right Details: Obtained consent for injection. Under sterile conditions, aspirated 30cc and injected the patients right knee with a 10cc cocktail of 8cc bupivacaine and 2cc kenalog. The patient tolerated the injection well without any noted complication. Patient should call our office if redness develops, pain worsens or if they have any concerns. Office Meds Kenalog Performing Provider: Carley Deras DO Administered by: Carley Deras DO on 11/30/17 08:22 Dose Route Admin Location Lot Number Expiration DateNDC Box Nailer 2 mg Intra-Articularright knee [id number] 09/26/18 1369-9600-52 Rocket Raise Assessment AND Plan 1. Other tear of lateral meniscus of right knee as current injury, subsequent encounter S83.281D Plan discussed treatment options and patient elected to proceed with injection for now until golf is over then see if surgery is an option between golf and basketball practice/coaching. Treatment options today are do nothing, steroid injection or knee arthroscopy. He elects to continue conservative care today for pain relief. If this fails will discuss scope in December or fall. Follow up in 3-4 months or sooner if pain, swelling, numbness or associated symptoms, or concerns develop. All questions answered. Patient in agreement of plan. Orders Orders: Plan Detail Other Orders Orders: Other Medications Discontinued: Kenalog (triamcinolone acetonide) 2 mg (0.2 mL) Intra-Articular ONCE [id number] Quentin Bernardo Discontinued Reason: Office MediNS cation has been Documented as given Coding Level of Care Code Off vis,est,level 3 Diagnoses Other tear of lateral meniscus of right knee as current injury, subsequent encounter S83.281D Encounter type: subsequent encounter Meniscus tear of knee type: other type Tear current or old: current Additional Codes residential treatment counselor.knee ([id number]) 11/30/17 1051 <Electronically signed by Carley Deras DO> Date Carley Deras DO Cosigner Signature: Date (if applicable) CC: SYNOVIAL FLUID RBC, Collected: 11/30/2017 Status: F Source: [address] WBC AND DIFF 8:30 AM [facility] REPOSITORY TYPE CODE TESTS RESULT OUT OF RANGE REFERENCE UNITS LAB L200.5050 0.000-0.000 10 3 uL High SYN Tot 0.[address] Result Comment: This is the Total Number of Nucleated Cell Types in the Body Fluid. LAB L200.5100 0 /mm3 SYNOVIAL High RBC 442 Result Comment: AMENDED REPORT 11/30/17 1147 SYNOVIAL RBC previously reported as: 0.001 H 10^6/uL LAB L200.5200 0.000-0.002 10 3uL High SYNOVIAL WBC 0.6260 LAB L200.5260 % SYBF Normal PMN WBC% 3.8 LAB L200.5270 10 3/ul SYBF Normal PMN WBC# 0.024 LAB L200.5280 % SYBF Normal MN WBC% 96.2 LAB L200.5800 PATH Normal COM/SYFL May follow LAB L200.4600 Normal SYNOVIAL SOURCE RIGHT KNEE LAB L200.4900 Pale Yellow Normal SYNOVIAL COLOR Yellow LAB L200.5000 CLEAR Normal SYNOVIAL EUNICE. Clear LAB L200.5300 0-25 % Normal NEUTROPHIL 16 LAB L200.5400 % LYMPH Normal 2 LAB L200.5500 % MONO Normal 2 LAB L200.5700 % OTHER Normal CELL /SYN 80 Performed By: #### L200.0400, L200.4175, M100.1300 #### [facility] [address] [place], [place], [address] CRYSTALS, BODY FLUID Collected: 11/30/2017 Status: C Source: [place] 8:30 AM [facility] REPOSITORY TYPE CODE TESTS RESULT OUT OF RANGE REFERENCE UNITS LAB L200.4200 Normal SEE PATH REV CRYSTALS/BF LAB L200.4225 Normal SYNOVIAL SOURCE/BF LAB L200.6020 Normal PATH Reviewed REV Result Comment: Negative for malignant cells. No diagnostic crystals seen. David Bauer D.O. 12/01/17 AMENDED REPORT 12/01/17 1004 PATH REV previously reported as: Will follow Performed By: #### L200.0400, L200.4175, M100.1300 #### [facility] [address] [place], [address] Observed: 11/30/2017 Status: P Source: [place] CULTURE, BODY FLUID 8:30 AM [facility] REPOSITORY List Antibiotics Last 48 Hours? UNK List Antibiotics to be Started? UNK Gram Stain Centrifuged Specimen? Culture performed on centrifuged specimen Gram Stain No White Blood Cells No organisms seen Body Fluid Cult No growth-Final to follow Performed By: #### L200.0400, L200.4175, M100.1300 #### [facility] [address] [facility] [place], [address] SYNOVIAL FLUID RBC, Collected: 11/30/2017 Status: F Source: [facility] WBC AND DIFF 8:30 AM [facility] REPOSITORY TYPE CODE TESTS RESULT OUT OF RANGE REFERENCE UNITS LAB L200.4600 Normal SYNOVIAL RIGHT SOURCE KNEE LAB L200.4900 Pale Yellow Normal SYNOVIAL COLOR Yellow LAB L200.5000 CLEAR Normal SYNOVIAL EUNICE. Clear LAB L200.5050 0.000-0.000 10 3 uL High SYN Tot Cell 0.7530 Ct Result Comment: This is the Total Number of Nucleated Cell Types in the Body Fluid. LAB L200.5100 0 /mm3 SYNOVIAL High RBC 442 Result Comment: AMENDED REPORT 11/30/17 1147 SYNOVIAL RBC previously reported as: 0.001 H 10^6/uL LAB L200.5200 0.000-0.002 10 3uL High SYNOVIAL WBC 0.6260 LAB L200.5260 % SYBF Normal PMN WBC% 3.8 LAB L200.5270 10 3/ul SYBF Normal PMN WBC# 0.024 LAB L200.5280 % SYBF Normal MN WBC% 96.2 LAB L200.5300 0-25 % Normal NEUTROPHIL 16 LAB L200.5400 % LYMPH Normal 2 LAB L200.5500 % MONO Normal 2 LAB L200.5700 % OTHER Normal CELL /SYN 80 LAB L200.5800 PATH Normal COM/SYFL May follow Performed By: #### L200.0400, L200.4175 #### [facility] [address] [place], [address] CRYSTALS, BODY FLUID Collected: 11/30/2017 Status: F Source: [address] 8:30 AM [facility] REPOSITORY TYPE CODE TESTS RESULT OUT OF RANGE REFERENCE UNITS LAB L200.4200 Normal SEE PATH REV CRYSTALS/BF LAB L200.4225 Normal SYNOVIAL SOURCE/BF LAB L200.6020 Normal PATH Reviewed REV Result Comment: Negative for malignant cells. No diagnostic crystals seen. David Bauer D.O. 12/01/17 AMENDED REPORT 12/01/17 1004 PATH REV previously reported as: Will follow Performed By: #### L200.0400, L200.4175 #### [facility] [address] [place], [place], [address] Observed: 11/30/2017 Status: F Source: [place] CULTURE, BODY FLUID 8:30 AM [facility] REPOSITORY List Antibiotics Last 48 Hours? UNK List Antibiotics to be Started? UNK Gram Stain Centrifuged Specimen? Culture performed on centrifuged specimen Gram Stain No White Blood Cells No organisms seen Body Fluid Cult NO GROWTH IN 14 DAYS Cult, Anaerobic No growth in 5 days. Performed By: #### M100.1300 #### [facility] [address] [place], [address] ALLERGIES ALLERGIES DATE TYPE / CODE NAME / CODE REACTION SEVERITY SOURCE 03/14/2018 Drug No Known Unknown [facility] Allergy/416 Allergies/E79702 Hospital 075585(SNOM 0388(RXNORM) Repository ED CT) Drug NO KNOWN [facility] Class/93858 ALLERGIES [facility] [place] 1003(SNOMED Repository CT) ENCOUNTERS ENCOUNTERS ADMIT/DISCHARGE ACCOUNT ADMITTING ENCOUNTER LOCATION SOURCE NUMBER CLASS 06/13/2018/06/13/19 [id number] Ambulatory BMSBuilding:[place] [facility] [place] Repository 05/30/2018 [id number] Ambulatory [facility] Hospital ing:PT Repository 05/07/2018/05/07/20 [id number] Emergency [address] Hospital ing:ED Repository 05/01/2018/05/01/20 [id number] Ambulatory BMSBuilding:[facility] [place] [facility] Repository 04/03/2018/04/03/20 [id number] Ambulatory BMSBuilding:B [place] [facility] Repository 03/26/2018 [id number] Ambulatory [facility] Hospital ing:[facility] Repository 03/26/2018/03/26/20 [id number] Ambulatory BMSBuilding:[facility] [place] [facility] Repository 03/21/2018/03/21/20 [id number] Ambulatory [address] Hospital ing:SDCRoom: Repository AC09 03/21/2018/03/21/20 [id number] Ambulatory BMSBuilding:[facility] [place] [facility] [place].[facility] Repository 02/23/2018/02/24/20 [id number] Ambulatory BMSBuilding:[facility] [place] [facility] [place] Repository 02/12/2018/02/14/20 [id number] Ambulatory [address] Repository 01/16/2018/01/17/20 [id number] Ambulatory BMSBuilding:[place] [address] [place] Repository 11/30/2017 [id number] Ambulatory [facility] Hospital ing:LABSPEC Repository 11/30/2017/12/01/19 [id number] Ambulatory BMSBuilding:[facility] [place] [facility] Repository 08/29/2017 [id number] Ambulatory [facility] Hospital ing:MASS Repository PAYERS PAYERS ENCOUNTER GUARANTOR PAYER SUBSCRIBER SOURCE 06/13/2018 MIKY Schneider Primary MIKY C [place] [id number] FRIAR Insurance:MEDICAL [place] [id number] [address]Fpg: Number: Repository [id number] (HP) Date:3361-51-61WF [address] [place] [address]XF: 06/13/2018 Secondary NOT GIVENUNK [place] Insurance:SELF PAY [facility] Number: Effective Repository Date:2018-05-30 05/30/2018 MIKY Schneider Primary MIKY Schneider [place] [id number] FRIAR Insurance:MEDICAL KIPERDOB: [address] [address]Wjw: Number: Repository [id number] (HP) Date:8091-32-39BU [address] [place] [phone]: 05/30/2018 Secondary NOT GIVENUNK [place] Insurance:SELF PAY [facility] Number: Effective Repository Date:2018-04-03 05/07/2018 MIKY Schneider Primary MIKY Schneider [place] [id number] FRIAR Insurance:MEDICAL KIPERDOB: [address] [address]Inh: Number: Repository [id number] (HP) Date:2649-87-73KN [address] [place], [place] [address]WP: 05/07/2018 Secondary NOT GIVENUNK [place] Insurance:SELF PAY [facility] Number: Effective Repository Date:2018-05-07 05/01/2018 MIKY Schneider Primary MIKY Schneider [place] [id number] FRIAR Insurance:MEDICAL KIPERDOB: [address] [address]Ogd: Number: Repository [id number] (HP) Date:5478-76-14IC [address] [place] [phone]: 05/01/2018 Secondary NOT GIVENUNK [place] Insurance:SELF PAY [facility] Number: Effective Repository Date:2018-04-03 04/03/2018 MIKY Schneider Primary MIKY Landin [id number] FRIAR Insurance:MEDICAL [place]DOB[place] [id number] [address]Kze: Number: Repository [id number] (HP) Date:9345-64-67BK [address] [place], [place] [address]WP: 04/03/2018 Secondary NOT GIVENUNK [place] Insurance:SELF PAY [facility] Number: Effective Repository Date:2018-04-03 03/26/2018 MIKY Schneider Primary MIKY Schneider [place] [id number] [place] Insurance:MEDICAL [place]IPERDOB[place] [facility] [id number] General Hospital [address]Ejq: Number: Repository [id number] (HP) Date:3751-39-90AZ [address] [address]CD: 03/26/2018 Secondary NOT GIVENUNK [place] Insurance:SELF PAY [facility] Number: Effective Repository Date:2018-03-26 03/26/2018 MIKY Schneider Primary MIKY Landin [id number] FRIAR Insurance:MEDICAL KIPERDOB[place] [facility] [id number] [place] [address]Eqv: Number: Repository [id number] (HP) Date:0435-76-29ZQ [address] [address]WF: 03/26/2018 Secondary NOT GIVENUNK [place] Insurance:SELF PAY [facility] Number: Effective Repository Date:2018-03-26 03/21/2018 MIKY Schneider Primary MIKY Schneider [place] [id number] FRIAR Insurance:MEDICAL KIPERDOB: [facility] [id number] [place] [address]Oth: Number: Repository [id number] (HP) Date:7872-41-27NG [address] [place] [phone]: 03/21/2018 Secondary NOT GIVENUNK [place] Insurance:SELF PAY [facility] Number: Effective Repository Date:2018-02-06 03/21/2018 MIKY C Primary MIKY C [place] [id number] FRIAR Insurance:MEDICAL KIPERDOB: [facility] [id number] [place] [address]Rwp: Number: Repository [id number] (HP) Date:2525-92-42XC [address] [place] [phone]: 03/21/2018 Secondary NOT GIVENUNK [place] Insurance:SELF PAY [facility] Number: Effective Repository Date:2018-03-21 02/23/2018 MIKY C Primary MIKY C [place] [id number] FRIAR Insurance:MEDICAL KIPERDOB: [address] [address]Tai: Number: Repository [id number] (HP) Date:4332-12-95KW [address] [place] [phone]: 02/23/2018 Secondary NOT GIVENUNK [place] Insurance:SELF PAY [facility] Number: Effective Repository Date:2018-02-23 01/16/2018 MIKY C Primary MIKY C [place] [id number] FRIAR Insurance:MEDICAL KIPERDOB: [address] [place] [address]Vye: Number: Repository [id number] (HP) Date:3072-26-15OF [address] [place] [phone]: 01/16/2018 Secondary NOT GIVENUNK [place] Insurance:SELF PAY [facility] Number: Effective Repository Date:2018-01-16 11/30/2017 MIKY Schneider Primary MIKY Schneider [place] [id number] Insurance:MEDICAL KIPERDOB: [facility] [id number] Repository [phone]: [phone] [id number] [phone] (HP) Date:0269-65-02TG [address] [phone]: 11/30/2017 Secondary NOT GIVENUNK [place] Insurance:SELF PAY [facility] Number: Effective Repository Date:2017-11-30 11/30/2017 MIKY Schneider Primary MIKY Schneider [place] [id number] Insurance:MEDICAL KIPERDOB: [facility] [id number] Number: Repository [id number]: [phone] [id number] [phone] () Date:9451-39-88JO [address] [address]GZ: 11/30/2017 Secondary NOT GIVENUNK [place] Insurance:SELF PAY [facility] Number: Effective Repository Date:2017-11-30 08/29/2017 MIKY Schneider Primary NOT GIVENUNK [place] [id number] Insurance:SELF PAY [place] Number: Effective Repository [id number]: [phone]) Date:2014-06-30 [phone] ()
== END 2018-05-07 17:39 | disposition home or self-care (01) ==
PROVIDERS: Emergency Provider Emergency Medicine; Family Provider Family Medicine; PCP Family Medicine
DX: R60.0 Localized edema (principal); M79.661 Pain in right lower leg; Z86.718 Personal history of other venous thrombosis and embolism; Z79.01 Long term (current) use of anticoagulants; Z98.890 Other specified postprocedural states
CPT/HCPCS: 93971; 99282

== ENCOUNTER 2018-05-30 13:00 | Outpatient (RCR) | payer OTHER, SELFPAY ==
--- NOTE | 2018-08-31 09:30 | HP.PT.NRP ---
HP - Discharge Summary (1) - Patient Information MIKY CHICAS was seen in my office for initial evaluation on 04/11/18. The following Plan of Care was established for this patient: Initial Frequency: 2-3x /Week Initial Duration: 2 Months - Anticipated Interventions Patient/Client Instruction: Educate patient on: Condition For the Purpose of:: To decrease pain, To decrease swelling/inflammation, To increase ROM, To improve nutrient delivery to tissue, To improve muscle performance and motor function, To improve ability to perform ADL's, To increase tolerance to activity/condition/position, To improve performance and independence with ADL's, To improve ability of physical actions for home/community/work/leisure, To improve gait and locomotor functions, To improve health of tissue, To decrease soft tissue restriction, To increase flexibility/ROM Therapeutic Exercise to Include: Strength training, Flexibilty training, Gait and locomotor training, Passive ROM, Active ROM For the Purpose of:: To decrease pain, To decrease swelling/inflammation, To increase ROM, To improve nutrient delivery to tissue, To improve muscle performance and motor function, To improve ability to perform ADL's, To increase tolerance to activity/condition/position, To improve performance and independence with ADL's, To decrease level of supervision to perform tasks, To improve ability of physical actions for home/community/work/leisure, To improve gait and locomotor functions, To improve health of tissue, To decrease soft tissue restriction, To increase flexibility/ROM Functional Training to Include: Gait training For the Purpose of:: To improve ability to perform ADL's, To increase tolerance to activity/condition/position, To improve performance and independence with ADL's, To improve ability of physical actions for home/community/work/leisure, To improve gait and locomotor functions IF ES: Yes Cryotherapy (ice pack, ice massage): Yes For the Purpose of:: To decrease pain, To decrease swelling/inflammation, To improve nutrient delivery to tissue This patient was last seen in our office 05/30/18. Pertinent comments regarding their Physical therapy will appear below: JOSE PT. At this point I will be discontinuing this patient from physical therapy. I would be happy to see this patient again in the future if found appropriate by the physician. Thank you! Jennifer Almanza, MPT
== END 2018-05-30 19:00 | disposition home or self-care (01) ==
LOC: PT 13:00
PROVIDERS: Family Provider Family Medicine; PCP Family Medicine; Referring Provider Orthopaedic Surgery; Visit Provider Orthopaedic Surgery
DX: Z98.890 Other specified postprocedural states (principal)
CPT/HCPCS: 97014; 97016; 97110; 97161; 97530; G0283

== ENCOUNTER → 2018-06-27 16:58 | Outpatient (CLI) | payer OTHER, SELFPAY ==
[2018-06-13 10:07] VITALS: BMI 35.6
--- NOTE | 2018-06-27 16:59 | MRI_ITS ---
STUDY: MRI LEFT KNEE REASON FOR EXAM: Male, 47 years old. Internal derangement. Pain. TECHNIQUE: Standardized fat and water weighted pulse sequences were obtained in all 3 orthogonal planes. COMPARISON: None. 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 Normal hyaline cartilage of the medial femorotibial compartment. Normal medial femoral condyle and tibial plateau. Normal medial collateral ligamentous complex (MCL). Normal distal semimembranosus, gracilis and semitendinosus tendons. Normal lateral meniscus. Normal hyaline cartilage of the lateral femorotibial compartment. Normal lateral femoral condyle and tibial plateau. Normal proximal tibiofibular articulation. Normal lateral collateral (fibular) ligament. Normal popliteus tendon. Normal biceps femoris tendon. Normal anterior cruciate ligament (ACL). Normal posterior cruciate ligament (PCL). There is arthrosis of the patellofemoral articulation. There is diffuse, less than 50% thickness articular cartilage loss of the patellofemoral compartment. Normal medial and lateral patellar retinaculum. Normal quadriceps tendon. Normal patellar tendon. Normal Hoffa's fat pad. There is a small volume joint effusion. There is a Holloway's cyst. The soft tissues are unremarkable. The otherwise visualized osseous structures are unremarkable. MRI/Lower Ext Joint Only (Routine) IMPRESSION: Patellofemoral degenerative change. No meniscal tear. Joint effusion with popliteal cyst. Electronically Signed: Estuardo Ferrara MD at 19:53 EST , Service support ,
== END ==
PROVIDERS: Family Provider Family Medicine; PCP Family Medicine; Referring Provider Physician Assistant; Visit Provider Physician Assistant
DX: S83.207A Unspecified tear of unspecified meniscus, current injury, left knee, initial encounter (principal)
CPT/HCPCS: 73721

== ENCOUNTER → 2019-04-10 09:27 | Outpatient (CLI) | payer OTHER, SELFPAY ==
[2018-11-08 08:12] VITALS: BMI 35.6
--- NOTE | 2019-04-10 09:30 | RAD_ITS ---
STUDY: X-RAY - CERVICAL SPINE REASON FOR EXAM: Male, 48 years old. Neck pain. TECHNIQUE: 5 view(s) of the cervical spine were obtained. COMPARISON: 06/17/2015 FINDINGS: Normal anterior atlantoaxial articulation. Normal odontoid process. There is straightening of the normal cervical lordosis. Normal vertebral bodies and endplates. Normal disc space heights. Normal visualized intervertebral neuroforamina. The soft tissue structures are unremarkable. There is no demonstrated fracture of the cervical spine. RAD/Cerv Spine 4 or 5 Views IMPRESSION: Normal x-ray examination of the visualized cervical spine. Electronically Signed: Kevin Niño MD at 17:33 EST , Service support ,
== END ==
PROVIDERS: Family Provider Family Medicine; PCP Family Medicine; Referring Provider Family Medicine; Visit Provider Family Medicine
DX: M54.2 Cervicalgia (principal)
CPT/HCPCS: 72050

== ENCOUNTER 2019-05-30 17:30 | Outpatient (RCR) | payer OTHER, SELFPAY ==
[2018-11-08 08:12] VITALS: BMI 35.6
--- NOTE | 2019-05-02 18:02 | HP.PTEVAL_ITS ---
Patient's Visit Information MIKY CHICAS is a 48 year old M referred to Physical Therapy by Leonides Galvez MD with a diagnosis of NECK PAIN. Date of Evaluation: 05/02/19 Physical Therapist: Ken Ford, PT, Cert MDT, OCS - Visit Plan Frequency: 2x /Week Duration: 4 Weeks Plan: PT INTERVENTIONS ICTX 17-25# X15MIN,US ,CP/MHP,TAMMY EX'S ,POSTURAL EX'S,THORACIC ROM - Subjective Findings: This 48 y/o male presents to physical therapy with neck pain . Patient has had cervical pain for 2months . Patient has pain right side right lumbar right side to shoulder scapular and has LASSITER radiaties to temporal aspect. Aggraveting factor with in morning ,turning cervical spine occassionally cracks with flexion and extension. Alleviating factors MEDS . Denies parathesia/tingling. Denies nuasea/tinnutus. Seen chriropractor for adjustments helped minimal. Patient tried massage. Patient sleeping okay at night. Patient pain affects QOL ,job demands ,housework tasks. Patient symptoms affects QOL.Patient has h/o trauma. SOCIAL : . 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 NEURO: denies parathesia/tingling,reflexes C5-6-7 2/3. PALPATION: UNREMARKABLE. AROM: BUE WFL. MMT: BUE 4/5. CERVICAL ROM: flexion min loss pain,extension min loss retraction WFL ,rotation /lateral flexion mod loss - Special Tests C/S Radiculapathy - Left Upper limb tension test: Negative C/S Radiculapathy - Right Upper limb tension test: Negative C/S Radiculapathy - Left Spurlings: Negative C/S Radiculapathy - Right Spurlings: Negative C/S Radiculapathy - Left Cervical distraction: Negative C/S Radiculapathy - Right Cervical distraction: Negative [place]: Negative Vertebral Artery Test: Negative Alar Ligament Test: Negative Cervical Sitting: Protrusion - Mechanical Response: No effect Cervical Sitting: Protrusion - Symptoms During Testing: Increases Cervical Sitting: Protrusion - Symptoms After Testing: No worse Cervical Sitting: Retraction - Mechanical Response: No effect Cervical Sitting: Retraction - Symptoms During Testing: Decreases Cervical Sitting: Retraction - Symptoms After Testing: No better Cervical Sitting: Retraction-Extension - Mechanical Response: No effect Cerv Sitting: Retraction-Extension - Symptoms During Testing: No effect Cerv Sitting: Retraction-Extension - Symptoms After Testing: No effect Cervical Sitting: Sidebend Right - Mechanical Response: No effect Cervical Sitting: Sidebend Right - Symptoms During Testing: No effect Cervical Sitting: Sidebend Right - Symptoms After Testing: No effect Cervical Sitting: Sidebend Left - Mechanical Response: No effect Cervical Sitting: Sidebend Left - Symptoms During Testing: No effect Cervical Sitting: Sidebend Left - Symptoms After Testing: No effect Cervical Sitting: Rotation Right - Mechanical Response: No effect Cervical Sitting: Rotation Right - Symptoms During Testing: No effect Cervical Sitting: Rotation Right - Symptoms After Testing: No effect Cervical Sitting: Rotation Left - Mechanical Response: No effect Cervical Sitting: Rotation Left - Symptoms During Testing: No effect Cervical Sitting: Rotation Left - Symptoms After Testing: No effect Cervical Sitting: Flexion - Mechanical Response: No effect Cervical Sitting: Flexion - Symptoms During Testing: Increases Cervical Sitting: Flexion - Symptoms After Testing: Worse - Goals Goal 1:: Patient to be Independant with HEP Goal Time Frame: 4-6 Weeks Goal 2:: Improve posture for ADLS' Goal Time Frame: 4-6 Weeks Goal 3:: Decrease cervical pain by 75% or > to improve function. Goal Time Frame: 4-6 Weeks Goal 4:: Patient to improve cervical ROM without pain for function. Goal Time Frame: 4-6 Weeks Goal 5:: Patient to improve neck owestry score by 5 points or > to improve QOL. Goal Time Frame: 4-6 Weeks - Rehabilitation Potential Physical Therapy Diagnosis: Patient has cervical derrangement with pain with flexion better with retraction with patient having LASSITER ,loss of cervical ROM ,unable to return to flexion of recovery thus benifit from skilled PT Rehabilitation Potential: Good - Anticipated Interventions Patient/Client Instruction: Educate patient on: Condition, Plan of Care For the Purpose of:: To decrease pain, To increase ROM, To improve muscle performance and motor function, To improve ability to perform ADL's, To improve performance and independence with ADL's, To improve ability of physical actions for home/community/work/leisure, To improve health of tissue, To decrease soft tissue restriction, To increase flexibility/ROM, To improve ability to perform tasks related to life management Therapeutic Exercise to Include: Strength training, Postural training, Flexibilty training, Active ROM, Tammy Exercises For the Purpose of:: To decrease pain, To increase ROM, To improve muscle performance and motor function, To improve ability of physical actions for home/community/work/leisure, To improve health of tissue, To decrease soft tissu e restriction, To increase flexibility/ROM, To reduce risk of recurrence, To improve ability to perform tasks related to life management Manual Therapy Techniques to Include: Mobilization Comment: CERVVICAL THORACIC For the Purpose of:: To decrease pain, To increase ROM, To improve nutrient delivery to tissue, To increase oxygenation perfusion Cryotherapy (ice pack, ice massage): Yes Thermo therapy (hot pack): Yes Ultrasound (thermal/non thermal): Yes Intermittent cervical traction: Yes - 17-15# For the Purpose of:: To decrease pain, To increase ROM, To improve nutrient delivery to tissue, To increase oxygenation perfusion, To improve health of tissue, To decrease soft tissue restriction Thank you for the opportunity to evaluate your patient. For Medicare and Medicare HMO plans, please review the plan of care and approve it. It will need to be FAXED BACK to us at [phone] for Medicare purposes. For Medicare only, by signing this I certify the plan of care. Please let me know if there are questions or concerns regarding this plan of care. Physician Signature: Date:
--- NOTE | 2019-05-30 18:16 | HP.PTDCSUM ---
HP - PT D/C Summary It has been my pleasure to treat MIKY CHICAS under orders from Leonides Galvez MD, for the diagnosis of NECK PAIN for a total of 8 visit(s). Discharge Date: 05/30/19 Please see the following information for a summary of their discharge status. - Subjective Subjective: Today ,I have a LASSITER ,1st time in awhile. Rotation to right conts to be limited with pain. sleeping better - Pain Right Neck Pain Intensity (Out of 10): 2 - Overall Improvement % Improvement: 50 - Objective Objective/Function: POSTURE: mild foward posture. CERVICAL ROM: flexion min,min/mod rotation to right with pain left min ,extension min loss ,lateral flexion min/mod loss R,left min loss. MMT: 4/5 - Goals Goal 1:: Patient to be Independant with HEP Goal Progress: Goal Met Goal 2:: Improve posture for ADLS' Goal Progress: Goal Met Goal 3:: Decrease cervical pain by 75% or > to improve function. Goal Progress: Progressing Goal 4:: Patient to improve cervical ROM without pain for function. Goal Progress: Progressing Goal 5:: Patient to improve neck owestry score by 5 points or > to improve QOL. Goal Progress: Progressing - Plan Plan: D/C HEP. [ End ] - D/C Information Discharge Comments: MAY CONSIDER SEE CHIROPRACTOR,MASSAGE THERAPIST If there are questions or concerns regarding this patient's physical therapy, please feel free to call me at [phone]. Thank you for the referral of this patient. Sincerely, Ken Ford, PT, Cert MDT, OCS
== END 2019-05-30 19:00 | disposition home or self-care (01) ==
LOC: PT 17:30
PROVIDERS: Family Provider Family Medicine; PCP Family Medicine; Referring Provider Family Medicine; Visit Provider Family Medicine
DX: M54.2 Cervicalgia (principal)
CPT/HCPCS: 97012; 97035; 97110; 97162; 97530

== ENCOUNTER 2021-08-13 07:02 | Outpatient (CLI) | payer OTHER, SELFPAY ==
[2021-08-13 10:41] LABS: ALB/GLOB Ratio 0.9 RATIO (0.9-2.4); AST(SGOT) 23 U/L (15-37); Alanine Aminotransfer ALT/SGPT 53 U/L (16-61); Albumin, Serum 3.6 g/dL (3.2-5.0); Alkaline Phosphatase 89 U/L (45-117); Anion Gap 3 (5-15); BUN 14 mg/dL (7-18); BUN/Creat Ratio 16.1 RATIO (10-20); Calcium,Total 8.6 mg/dL (8.5-10.1); Chloride 107 mmol/L (98-107); Creatinine, Serum 0.87 mg/dL (0.70-1.30); EST Glomerular Filtration Rate 99 mL/min (>60); Est Glom Filt Rate - Afr Amer 120 mL/min (>60); Globulin 3.8 g/dL (2.2-4.2); Glucose 105 mg/dL (74-106); Potassium 3.8 mmol/L (3.5-5.1); Protein, Total 7.4 g/dL (6.4-8.2); Sodium Level 138 mmol/L (136-145); Thyroid Stim Hormone (TSH) 1.52 uIU/mL (0.358-3.74)
[2021-08-15 12:07] LABS: CHOLESTEROL TOTAL 338 mg/dL (100-199); HDL-C 58 mg/dL (>39); HDL-P TOTAL 28.3 umol/L (>=30.5); SMALL LDL-P 276 nmol/L (<=527); TRIGLYCERIDES 79 mg/dL (0-149)
[2021-08-15 16:28] LABS: INSULIN RESISTANCE SCORE 39 (<=45); LDL SIZE 21.4 nm (>20.5); LDL-C (NIH CALC) 268 mg/dL (0-99); LDL-P 2610 nmol/L (<1000)
== END 2021-08-13 23:59 | disposition home or self-care (01) ==
LOC: MTLAB 07:03
PROVIDERS: PCP Family Medicine; Referring Provider Family Medicine; Visit Provider Family Medicine
DX: E78.5 Hyperlipidemia, unspecified (principal)
CPT/HCPCS: 36415; 80053; 80061; 83704; 84443; 86141

== ENCOUNTER 2022-06-08 11:28 | Emergency (ER) | payer OTHER, SELFPAY ==
[2022-06-08 11:29] VITALS: BP 134/89; PULSE 92; RESP 18; TEMP 36.3; O2SAT 99; BMI 35.6
--- NOTE | 2022-06-08 11:44 | CT_ITS ---
STUDY: CT ABDOMEN AND PELVIS WITHOUT CONTRAST REASON FOR EXAM: Male, 51 years old. Diffuse abdominal pain. RADIATION DOSAGE (If Supplied By Facility): CTDIvol = ( 29.14 ) mGy, DLP = ( 1652.46 ) mGycm TECHNIQUE: Transaxial images were obtained from the dome of the diaphragm to the symphysis pubis without oral contrast, and without intravenous contrast. Sagittal and coronal images were reconstructed. Individualized dose optimization techniques were used for this CT. COMPARISON: None. FINDINGS: The visualized lung bases are unremarkable. The visualized portions of the heart are within normal limits. Normal liver. Normal gallbladder and extrahepatic biliary system. Normal spleen. Normal pancreas. Normal bilateral adrenal glands. Normal right kidney. Normal left kidney. There is a small hiatal hernia. Normal small intestine. There are scattered colonic diverticula consistent with diverticulosis. The appendix is visualized and appears normal. Normal abdominal aorta. Normal inferior vena cava. There is borderline retroperitoneal lymphadenopathy with enlarged nodes no greater than 10mm in the short axis diameter. Normal urinary bladder. Normal abdominal wall. Small bilateral benign-appearing inguinal lymph nodes. Normal osseous structures. CT/Abdomen/Pelvis without Cont IMPRESSION: Scattered sigmoid diverticula. Electronically Signed: Thor Wolf MD at 12:38 EST ,
--- NOTE | 2022-06-08 11:44 | EDS_ITS ---
HPI HPI - GI History of Present Illness Chief Complaint: Abd Pain Detail of Chief Complaint: Abdominal pain Informant: patient Narrative Narrative: Patient presents to the emergency department with complaint of abdominal pain that started last evening around 3 AM. Patient states that he woke up with abdominal discomfort and felt like he needed to have a bowel movement but could not. Patient did urinate. Patient states that he really had a hard time falling asleep and sleeping because of the discomfort. Patient made appointment with urgent care and was referred to the emergency department for further eval uation of his abdominal pain. Patient said some mild nausea but no vomiting. Patient states that after going to urgent care he initially went home and had a bowel movement that was watery. Patient complains of a mild headache and some mild low back pain. Patient has had recent travel to [place] but denies eating unusual or undercooked foods. He denies other sick contacts. Patient has had no prior abdominal surgeries. Currently rates his pain about a 4 5 out of 10. PFSH PFSH Home Medications meloxicam 15 mg tablet (Mobic) 15 mg PO DAILY #30 tabs 07/06/18 [Rx Last Taken Unknown] Allergy/AdvReac Type Severity Reaction Status Date / Time No Known Allergies Allergy Verified 06/08/22 11:29 Family History Other Heart disease Myocardial infarction Surgical History right knee plica removal Social History (Updated 10/15/19 @ 11:[address] Carlye Deras, ) Smoking Status: Never smoker ROS ROS ED Review of Systems ROS Unobtainable: other Constitutional Constitutional ED: Reports lethargy; Denies chills, fever(s), sweats or weight loss Eyes Eyes: Denies blurry vision, change in vision or diplopia ENT ENT ED: Denies rhinorrhea or sore throat Cardiovascular Cardiovascular: Denies chest pain, orthopnea or racing heartbeat Respiratory/Chest Respiratory/Chest: Denies cough, dyspnea, dyspnea on exertion, orthopnea or sputum Gastrointestinal Gastrointestinal: Reports abdominal pain and diarrhea; Denies nausea or vomiting Genitourinary Genitourinary ED: Denies dysuria, hematuria or urinary frequency Musculoskeletal Musculoskeletal: Reports back pain; Denies arthralgias, myalgias or neck pain Integumentary Denies abscess, Abrasions or rash Neurologic Neurologic: Reports headache(s); Denies weakness Psychiatric Psychiatric: Denies anxiety, depression or suicidal thoughts Endocrine Endocrinology: Denies polydipsia, polyphagia or polyuria Hematologic/Lymphatic Hematologic/Lymphatic: Denies easy bleeding, easy bruising or lymphadenopathy Allergic/Immunologic Allergic/Immunologic ED: Denies mouth swelling, tongue swelling or urticaria EXAM Physical Exam Const Vital Signs: 06/08/22 11:29 Temperature 97.3 F L Temperature Source Temporal Pulse Rate 92 Respiratory Rate 18 Blood Pressure 134/89 H Blood Pressure Mean 104 Pulse Ox 99 Oxygen Delivery Method Room Air Positive well nourished and well developed General Appearance ED: well developed and NAD HEENT Reports TM's clear and moist mucous membranes normocephalic and atraumatic; Negative for trauma or tenderness Tympanic Membrane ED: Yes TM's clear Eyes PERRL and EOMs intact bilaterally General Eye ED: Negative for pale conjunctiva or scleral icterus Neck no lymphadenopathy, supple and no JVD General: Negative for tenderness Chest Wall inspection of chest normal and palpation of chest normal Chest: Negative for tenderness Resp normal respiratory effort and clear to auscultation bilaterally Effort and Inspection: Negative for respiratory distress or pain with movement Auscultation: Negative for rhonchi, wheezes or diminished lung sounds Cardio regular rate, regular rhythm, S1 normal heart sound, S2 normal heart sound and no murmurs Peripheral Pulses: pulses 2+ throughout GI normal to inspection, nondistended, normoactive bowel sounds, soft to palpation, non-distended and no masses GI Narrative: Fused to theMild distention. Patient does have some hyperactive bowel sounds. Palpation. There is no rebound, rigidity, or peritoneal signs. Back/Spine no CVA tenderness and no thoracic nor lumbar tenderness Extremity normal to inspection General Extremety ED: Negative for edema General Extremity: Negative for edema Neuro oriented x3, CN's II-XII intact bilaterally, no sensory deficits noted and gait normal Sensorium / Orientation: awake, alert, oriented to person, oriented to place and oriented to time Motor Exam: strength 5/5 throughout and strength abnormal Psych mental status grossly normal Skin no rashes or lesions noted and no wounds MDM MDM MDM Narrative Medical decision making narrative: IV line established on arrival. Patient did not anything for pain. Lab work-up obtained showed a normal white count and normal chemistries as well as normal LFTs. Patient had a CT scan of the abdomen pelvis without contrast that showed some scattered sigmoid diverticula otherwise nothing acute. At this point etiology of his abdominal pain unclear although I suspect may be viral enteritis given that he just recently passed a watery stool. Patient advised on a brat diet. Advised to use Imodium if persistent diarrhea. Patient to return to the ER if worsening abdominal pain, fever, bloody stools, or condition should worsen anyway. Lab Data Attestation: I reviewed the patient's lab results. Labs: Laboratory Results - last 24 hr 06/08/22 06/08/22 11:53 11:53 WBC 8.5 RBC 5.17 Hgb 15.5 Hct 45.8 MCV 88.6 MCH 30.0 MCHC 33.8 RDW Std Deviation 40.3 RDW Coeff of Rosy 12.3 Plt Count 247 MPV 9.2 Immature Gran % (Auto) 0.400 Neut % (Auto) 90.3 H Lymph % (Auto) 3.9 L [place] % (Auto) 4.9 Eos % (Auto) 0.4 Baso % (Auto) 0.1 Absolute Neuts (auto) 7.7 Absolute Lymphs (auto) 0.33 L Nucleated RBC % 0.2 Sodium 137 Potassium 4.2 Chloride 108 H Carbon Dioxide 23.0 Anion Gap 6 BUN 16 Creatinine 0.94 Estim Creat Clear Calc 113.62 Est GFR (MDRD) Af Amer 110 Est GFR (MDRD) Non-Af 91 BUN/Creatinine Ratio 17.1 Glucose 131 H Calcium 8.7 Total Bilirubin 1.00 Direct Bilirubin 0.22 AST 29 ALT 63 H Alkaline Phosphatase 89 Total Protein 7.5 Albumin 3.7 Globulin 3.8 Radiography Diagnostic Testing: Clinical Impression(s) from Imaging Studies Abdomen/Pelvis CT 06/08/22 11:44 IMPRESSION: Scattered sigmoid diverticula. Electronically Signed: Thor Wolf MD at 12:38 EST , Discharge Plan Triage Chief Complaint: Abd Pain ED Provider: Ricardo Pastor Dx/Rx/DC Orders Clinical Impression: Abdominal pain Instructions: ED Abdominal Pain Unkn Cause Male... Prescriptions: No Action meloxicam [Mobic] 15 mg tablet 15 mg PO DAILY Qty: 30 0RF Primary Care Provider: Leonides Galvez Referrals: Leonides Galvez MD [Primary Care Provider] - 3-5 Days Disposition Disposition: Home, Self Care
[2022-06-08] MEDS: 0.9% Normal Saline 1,000 ML 125 ML IV (11:57)
[2022-06-08 12:03] LABS: Absolute Lymphocyte Count 0.33 X10^3/uL (0.83-4.51); Absolute Neutrophil Count 7.7 X10^3/uL (2.0-7.7); Basophil# 0.01 X10^3/uL; Basophil% 0.1 % (0-1); Eosinophil# 0.03 X10^3/uL; Eosinophils% 0.4 % (0-5); Hematocrit 45.8 % (40-54); Hemoglobin 15.5 g/dL (13.0-16.5); Lymphocyte # 0.33 X10^3/ul (0.83-4.51); Lymphocyte % 3.9 % (19-41); Mean Corp Hgb Conc 33.8 g/dL (32-36); Mean Corpuscular Volume 88.6 fL (80-94); Mean Platelet Vol. 9.2 fl (6.2-12.0); Monocyte# 0.42 X10^3/uL; Monocyte% 4.9 % (0-10); NRBC Flagged by Analyzer 0.2 % (0-5); Neutrophil # 7.67 X10^3/uL (2.7-7.7); Neutrophil % 90.3 % (47-70); POSITIVE DIFFERENTIAL YES; Platelet Count 247 K/mm3 (150-450); RBC Distribution Width CV 12.3 % (11.6-14.6); RBC Distribution Width SD 40.3 fl (35.1-43.9); Red Blood Count 5.17 M/mm3 (4.6-6.2); White Blood Count 8.5 K/mm3 (4.4-11.0)
[2022-06-08 12:04] LABS: Differential Indicated SCAN CRITERIA MET
[2022-06-08 12:17] LABS: AST(SGOT) 29 U/L (15-37); Alanine Aminotransfer ALT/SGPT 63 U/L (16-61); Albumin, Serum 3.7 g/dL (3.2-5.0); Alkaline Phosphatase 89 U/L (45-117); Anion Gap 6 (5-15); BUN 16 mg/dL (7-18); BUN/Creat Ratio 17.1 RATIO (10-20); Bilirubin, Direct 0.22 mg/dL (0.00-0.30); Calcium,Total 8.7 mg/dL (8.5-10.1); Chloride 108 mmol/L (98-107); Creatinine, Serum 0.94 mg/dL (0.70-1.30); EST Glomerular Filtration Rate 91 mL/min (>60); Est Glom Filt Rate - Afr Amer 110 mL/min (>60); Estimated Creatinine Clearance 113.62 ml/min; Globulin 3.8 g/dL (2.2-4.2); Glucose 131 mg/dL (74-106); Potassium 4.2 mmol/L (3.5-5.1); Protein, Total 7.5 g/dL (6.4-8.2); Sodium Level 137 mmol/L (136-145)
[2022-06-08 13:16] VITALS: BP 127/94; PULSE 80; RESP 16; O2SAT 95
== END 2022-06-08 13:16 | disposition home or self-care (01) ==
PROVIDERS: Emergency Provider Emergency Medicine; PCP Family Medicine; Visit Provider Emergency Medicine
DX: R10.9 Unspecified abdominal pain (principal)
CPT/HCPCS: 74176; 80048; 80076; 85025; 99283; J7030

== ENCOUNTER → 2023-04-19 | Outpatient (CLI) | payer OTHER, SELFPAY ==
[2023-04-19 11:13] LABS: AST(SGOT) 35 U/L (15-37); Alanine Aminotransfer ALT/SGPT 62 U/L (16-61); Albumin, Serum 3.6 g/dL (3.2-5.0); Alkaline Phosphatase 104 U/L (45-117); Anion Gap 5 (5-15); BUN 16 mg/dL (7-18); BUN/Creat Ratio 19.2 RATIO (10-20); Bilirubin, Direct 0.14 mg/dL (0.00-0.30); Calcium,Total 8.5 mg/dL (8.5-10.1); Chloride 106 mmol/L (98-107); Cholesterol 273 mg/dL (200); Creatinine, Serum 0.83 mg/dL (0.70-1.30); EST Glomerular Filtration Rate 103 mL/min (>60); Est Glom Filt Rate - Afr Amer 125 mL/min (>60); Globulin 3.7 g/dL (2.2-4.2); Glucose 101 mg/dL (74-106); High Density Lipoprotein 59 mg/dL; PSA,Total - Annual Screen 1.93 ng/mL (0.00-4.00); Potassium 4.2 mmol/L (3.5-5.1); Protein, Total 7.3 g/dL (6.4-8.2); Sodium Level 140 mmol/L (136-145); Triglycerides 78 mg/dL; Very Low Density Lipoprotein 16 mg/dL (5-40)
== END | disposition home or self-care (01) ==
LOC: MTLAB 07:39
PROVIDERS: PCP Family Medicine; Referring Provider Family Medicine; Visit Provider Family Medicine
DX: E78.5 Hyperlipidemia, unspecified (principal); Z13.1 Encounter for screening for diabetes mellitus; Z12.5 Encounter for screening for malignant neoplasm of prostate
CPT/HCPCS: 36415; 80048; 80061; 80076; 84153; G0103

== ENCOUNTER 2023-06-29 07:50 | Day surgery (SDC) | payer OTHER, SELFPAY ==
[2023-06-29] VITALS (7 sets, daily range): BP systolic 100–127; BP diastolic 73–85; PULSE 64–88; RESP 16; TEMP 36.1–36.7; O2SAT 93–96; BMI 40.5
--- OUTSIDE RECORDS SUMMARY | 2023-06-29 07:53 | XMS RPT_ITS | CCD ---
Author Name Unknown Address [address] [place] [address] Organization [facility] Care Team Providers Care Test Desk Trouble Locator Name Role Phone Raudel Deras Unavailable Esther Gaspar Unavailable Carlos Wilburn MD Primary Care Provider CARLOS WILBURN Primary Care Unavailabl RAUDEL Palmer Referring Unavailab RAUDEL Amaro Attending Unavailab CARLOS Alvarez Primary Care Unavailwilliam e Medications Completed/Discontinued Medications Medication Drug Class(es) Dates Sig (Normalized) Sig (Original) acetaminophen 325 mg / oxyCODONE hydrochloride 5 mg oral tablet (2 sources) Opioid Agonist Start: 05-04-2021 take 1 tablet by mouth every six hours as needed for pain oxyCODONE-acetamino phen (PERCOCET) 5-325 mg tablet Indications: Tenosynovitis of left wrist Take 1 tablet by mouth every 6 hours as needed for pain. 12 tablet 0 05/04/2021 Active Problems Active Problems Problem Classification Problem Date Documented Date Episodic/Chronic Other connective tissue disease (1 source) Lateral epicondylitis of right humerus; Translations: [Lateral epicondylitis, right elbow] 04-07-2023 Episodic Other nervous system disorders (1 source) Neuritis of right ulnar nerve; Translations: [Lesion of ulnar nerve, right upper limb] 04-07-2023 Chronic Other nutritional; endocrine; and metabolic disorders (2 sources) Body mass index 30+ - obesity; Translations: [Obesity, unspecified] Onset: 04-29-2021 04-29-2021 Chronic Residual codes; unclassified (1 source) Pain, unspecified; Translations: [Pain] Onset: 04-07-2023 Episodic Past or Other Problems Problem Classification Problem Date Documented Da te Episodic/Chronic Complications of surgical procedures or medical care (2 sources) Difficult intubation; Translations: [Failed or difficult intubation, initial encounter] Onset: 04-29-2021 04-29-2021 Episodic Joint disorders and dislocations; trauma-related (1 source) Other tear of lateral meniscus, current injury, right knee, initial encounter; Translations: [Other tear of lateral meniscus, current injury, right knee, initial encounter] Onset: 04-27-2017 04-27-2017 Episodic Other bone disease and musculoskeletal deformities (2 sources) Chondromalacia; 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, right knee] Onset: 02-23-2017 02-23-2017 Episodic Other connective tissue disease (8 sources) Impingement syndrome of shoulder region; Translations: [Tendinitis of wrist] Onset: 05-15-2014 03-20-2013 Episodic Other non-traumatic joint disorders (4 sources) Knee pain; Translations: [Knee joint effusion] 08-30-2012 Episodic Phlebitis; thrombophlebitis and thromboembolism (2 sources) H/O: Deep vein thrombosis; Translations: [Personal history of other venous thrombosis and embolism] Onset: 04-29-2021 04-29-2021 Episodic Sprains and strains (6 sources) Sprain of lateral collateral ligament of knee; Translations: [Sprains and strains of other specified sites of knee and leg] Resolved: 09-14-2012 09-11-2012 Episodic Superficial injury; contusion (2 sources) Contusion of wrist; Translations: [Contusion of unspecified wrist] Onset: 05-15-2014 05-26-2014 Episodic Results Test Name Value Interpretation Reference Range Facil ity Vital Signs Date Time Vital Sign Value Performing Clinician Facility 05-15-2014 13:24-0500 BMI (Body Mass Index) 30.62 kg/m2 [facility] Work Phone: 05-15-2014 13:24-0500 Weight 111.13 kg [facility] Work Phone: 03-19-2013 11:40-0400 BP Diastolic 65 mm[Hg] [facility] Work Phone: 03-19-2013 11:40-0400 BP Systolic 108 mm[Hg] [facility] Work Phone: 09-11-2012 15:22-0400 Pulse (Heart Rate) 74 /min [facility] Work Phone: 08-30-2012 09:27-0400 Height 190.5 cm [facility] Work Phone: Encounters Encounter Date Encounter Type Care Provider Facility Start: 04-07-2023 End: 04-07-2023 ambulatory CARLOS WILBURN Facility:[facility] Start: 04-07-2023 End: 04-07-2023 Patient encounter procedure Raudel Deras DO Work Phone: Orthopaedics Procedures Date Procedure Procedure Detail Performing Clinician Start: 04-07-2023 Injection single ten don origin/insertion Raudel Deras DO Work Phone: Plan of Treatment Date Care Activity Detail Author Start: 09-29-2031 Urine microalbumin profile DTaP,Tdap,Td Vaccine (2 - Td or Tdap) [facility] Start: 01-27-2023 Covid-19 Vaccine ( season) Covid-19 Vaccine ( season) [facility] Start: 01-27-2023 Influenza [facility] Start: 2022 Shingrix Vaccine (1 of 2) Shingrix Vaccine (1 of 2) [facility] Start: 05-29-2022 Depression Assessment Depression Assessment [facility] Start: 2017 Cologuard (FIT-DNA) Cologuard (FIT-DNA) [facility] Start: 2017 Colonoscopy Colonoscopy [facility] Start: 2017 Colorectal Cancer Screening Colorectal Cancer Screening [facility] Start: [address] Colonography [facility] Start: 2017 Diabetes Screening Diabetes Screening [facility] Start: 2017 Fecal Occult Blood Fecal Occult Blood [facility] Start: 2017 Sigmoidoscopy Sigmoidoscopy [facility] Start: 04-27-2017 End: 04-27-2017 Mri any jt lower extrem w/o contrast matrl MRI Joint Lower Extremity [facility] Work Phone: Start: 04-27-2017 End: 04-27-2017 Appointment Appointment [facility] Work Phone: Start: 03-01-2017 End: 03-01-2017 Physical Therapy General Physical Therapy [facility], [address] [place] [address], [id number] [facility] Work Phone: Start: 02-23-2017 End: 02-23-2017 Radiologic exam knee complete 4/more views X-Ray, Knee [facility] Work Phone: Start: 05-15-2014 End: 05-15-2014 Radex hand minimum 3 views X-Ray, Hand [facility] Work Phone: Start: 08-03-2007 Lipid 1996 panel - Serum or Plasma Lipid Screening [facility] Start: 1990 Hepatitis C Screening Hepatitis C Screening [facility] Start: 1990 HIV Screening HIV Screening [facility] Start: 1972 Hepatitis B Vaccine (1 of 3 - 3-dose series) Hepatitis B Vaccine (1 of 3 - 3-dose series) [facility] NEUROMUSCULAR ULTRASOUND/NEUROLOGY NEUROMUSCULAR ULTRASOUND/NEUROLOGY Procedures Routine Ulnar neuritis, right Ordered: 04/07/2023 [facility] Work Phone: Payers Date Payer Category Payer Private Health Insurance [employer] A ETNA POS [id number] 2020-Present [phone] [address] [place] [address] POS [id number] 2020 Private Health Insurance [id number] Social History Date Type Detail Facility Start: 05-07-2016 End: 04-07-2023 Tobacco smoking status NHIS Never smoked tobacco [facility] Start: 05-07-2016 End: 04-07-2023 Tobacco use and exposure Smokeless tobacco non-user [facility] Start: 07-28-2021 End: 04-07-2023 Alcohol intake Current drinker of alcohol (finding) [facility] Start: 04-07-2023 History of Social function [facility] Start: 04-07-2023 Tobacco use panel [facility] National Score (1-10 0), lower number is lower risk 72 [facility] Start: 04-29-2021 Alcohol [facility] Start: 1972 Sex Assigned At Not on file [facility] Progress note 04-07-2023 Note Date & Type Note Facility 04-07-2023 Note HNO ID: [id number] Author: Raudel Deras, DO Service: ? Author Type: Physician Type: Progress Notes Filed: 04/07/2023 10:40 AM Note Text: Additional Injections: R elbow joint for lateral epicondylitis (Not the joint) Informed Consent Consent Obtained: Verbal [place] Protocol A moment to CARE was completed. SIGN IN Personnel directly involved with the procedure wore the appropriate PPE. Special Equipment: N/A Patient/Surrogate Stated/Verified: Patient name, Date of , Relevant allergies and Intended procedure TIME OUT Intended patient and procedure match the source document(s). Consent documented and matches the intended procedure. Relevant labs, photos, and/or imaging studies have been reviewed. No correct side/site applicable for marking and visibility. Medications required for procedure verified. Fire risk assessed and interventions discussed. No implant(s) inserted. 04/07/2023 10:38 AM The procedure site was prepped in the usual sterile fashion. Medications: 10 mg triamcinolone acetonide 10 mg/mL Anesthetics: 1 mL BUPivacaine (PF) 0.5 % (5 mg/mL) Outcome: tolerated well, no immediate complications Post-injection instructions were reviewed with the patient and the patient voiced understanding of these instructions. SIGN OUT All instruments, equipment, possible retained foreign bodies accounted for. Follow Up Visit Chief Complaint Linden Carlisle is a 52 year old male who presents today for follow up office visit. Patient presents with: Right Elbow - Established Patient, Pain History of Present Illness PAIN EVALUATION 04/07/2023 0931 Pain Level: 0 increases with activity Pain Location: Elbow-Right Description: Sore;Aching;Tingling Duration Amount of Time: 5 Duration Units: Months Frequency: Intermittent Intervention/Comfort measure: -- tennis ball, ice, ibuprofen HPI: Linden Carlisle is a 52 year old male for a follow up visit right forearm pain. Patient has been experiencing forearm/elbow pain for about 5 months now with no injury. He complains of the pain starting on both the lateral and medial sides of the elbow. Pain radiates to hand. He has tried ice, ibuprofen and some stretching with minimal relief. Pain history is noted as above. RHD Is there any overall improvement in your condition? No Any new injury, since being seen last: No REVIEW OF SYMPTOMS: Patient did not have, and does not currently have, any weight loss, malaise, fever, chills, headache, chest pain, chest pressure, palpitations, cough, shortness of breath, orthopnea, paroxsymal nocturnal dyspnea, nausea, vomiting, diarrhea, constipation, melena, hematochezia, urinary difficulties, prolonged bleeding, easily bruising, heat or cold intolerance, new onset joint pain or swelling, new onset extremity weakness or numbness, new onset auditory or visual disturbances, lightheadedness, dizziness, partial loss of consciousness or full loss of consciousness. Current Outpatient Medications Medication Sig rosuvastatin (CRESTOR) 10 mg tablet Take 1 tablet by mouth every afternoon. oxyCODONE-acetaminophen (PERCOCET) 5-325 mg tablet Take 1 tablet by mouth every 6 hours as needed for pain. (Patient not taking: Reported on 07/28/2021) No current facility-administered medications for this visit. Physical Exam Vitals: There were no vitals taken for this visit. Psych: Pleasant, good affect and mood General Appearance: Well appearing, alert, in no acute distress, well-hydrated, well nourished.. Skin: Skin color, texture, turgor normal, no suspicious rashes or lesions. Peripheral Pulses: Normal. Neurologic: Gait normal. Reflexes normal and symmetric. Sensation grossly intact.. Lymph Nodes: No cervical lymphadenopathy, No supraclavicular lymphadenopathy, No axillary lymphadenopathy., and No inguinal lymphadenopathy.. Respiratory: No recent pulmonary infection, hemoptysis, chronic cough, or shortness of breath at rest Rheumatologic: Joint deformities: right elbow pain Right Elbow Exam Tenderness The patient is experiencing tenderness in the lateral epicondyle and medial epicondyle. Range of Motion Extension: normal Flexion: normal Pronation: normal Supination: normal Muscle Strength Pronation: 5/5 Supination: 5/5 Other Erythema: absent Sensation: normal Pulse: present Comments: Weakness in ulnar nerve/abduction Med, rad nerves intact Left Elbow Exam Left elbow exam is normal. Tenderness The patient is experiencing no tenderness. Range of Motion Extension: normal Flexion: normal Pronation: normal Supination: normal Muscle Strength Pronation: 5/5 Supination: 5/5 Other Erythema: absent Sensation: normal Pulse: present Assessment and Plan Radiographs: I have independently reviewed films and my findings are the same. Impression: Encounter Diagnosis ICD-10-CM 1. Ulnar neuritis, right G56.21 N (more content not included)... [facility] Progress note 04-07-2023 Note Date & Type Note Facility 04-07-2023 Note HNO ID: [id number] Author: Marika Martinez RT(R) Service: Radiology Author Type: Technologist Type: Progress Notes Filed: 04/07/2023 9:26 AM Note Text: Radiology Service Progress Note PATIENT NAME: Linden Carlisle DATE OF SERVICE: April 07, 2023 TIME: 9:25 AM PATIENT IDENTITY VERIFICATION COMPLETED USING TWO (2) IDENTIFIERS: Name and Date of confirmed by patient verbally. FALL SCREENING: Has the patient had 2 falls in the last year or 1 fall with injury or currently using an Ambulatory Assistive Device (Walker, Cane, Wheelchair, Crutches, etc.)? No PATIENT GENDER DATA: Male PATIENT RELEVANT IMPLANT DATA REVIEWED: Not Applicable RADIOLOGY DEPARTMENT: General X-ray: Exam(s) Completed: Upper Extremity X-Ray(s): Forearm, right PERIPHERAL IV DATA: Not applicable SIGNED BY: RT Verito(R) April 07, 2023 9:25 AM [facility] History of Present illness Narrative 04-07-2023 Raudel Deras DO - 04/07/2023 9:35 AM EST Note Date & Type Note Facility 04-07-2023 History of Presen t illness Narrative Associated Order(s): Additional Injections: R elbow joint Post-Procedure Diagnose(s): Lateral epicondylitis of right elbow; Ulnar neuritis, right Images from the original note were not included. Additional Injections: R elbow joint for lateral epicondylitis (Not the joint) Informed Consent Consent Obtained: Verbal [place] Protocol A moment to CARE was completed. SIGN IN Personnel directly involved with the procedure wore the appropriate PPE. Special Equipment: N/A Patient/Surrogate Stated/Verified: Patient name, Date of , Relevant allergies and Intended procedure TIME OUT Intended patient and procedure match the source document(s). Consent documented and matches the intended procedure. Relevant labs, photos, and/or imaging studies have been reviewed. No correct side/site applicable for marking and visibility. Medications required for procedure verified. Fire risk assessed and interventions discussed. No implant(s) inserted. 04/07/2023 10:38 AM The procedure site was prepped in the usual sterile fashion. Medications: 10 mg triamcinolone acetonide 10 mg/mL Anesthetics: 1 mL BUPivacaine (PF) 0.5 % (5 mg/mL) Outcome: tolerated well, no immediate complications Post-injection instructions were reviewed with the patient and the patient voiced understanding of these instructions. SIGN OUT All instruments, equipment, possible retained foreign bodies accounted for. Follow Up Visit Chief Complaint Linden Carlisle is a 52 year old male who presents today for follow up office visit. Patient presents with: Right Elbow - Established Patient, Pain History of Present Illness PAIN EVALUATION 04/07/2023 0931 Pain Level: 0 increases with activity Pain Location: Elbow-Right Description: Sore;Aching;Tingling Duration Amount of Time: 5 Duration Units: Months Frequency: Intermittent Intervention/Comfort measure: -- tennis ball, ice, ibuprofen HPI: Linden Carlisle is a 52 year old male for a follow up visit right forearm pain. Patient has been experiencing forearm/elbow pain for about 5 months now with no injury. He complains of the pain starting on both the lateral and medial sides of the elbow. Pain radiates to hand. He has tried ice, ibuprofen and some stretching with minimal relief. Pain history is noted as above. RHD Is there any overall improvement in your condition? No Any new injury, since being seen last: No REVIEW OF SYMPTOMS: Patient did not have, and does not currently have, any weight loss, malaise, fever, chills, headache, chest pain, chest pressure, palpitations, cough, shortness of breath, orthopnea, paroxsymal nocturnal dyspnea, nausea, vomiting, diarrhea, constipation, melena, hematochezia, urinary difficulties, prolonged bleeding, easily bruising, heat or cold intolerance, new onset joint pain or swelling, new onset extremity weakness or numbness, new onset auditory or visual disturbances, lightheadedness, dizziness, partial loss of consciousness or full loss of consciousness. Current Outpatient Medications Medication Sig rosuvastatin (CRESTOR) 10 mg tablet Take 1 tablet by mouth every afternoon. oxyCODONE-acetaminophen (PERCOCET) 5-325 mg tablet Take 1 tablet by mouth every 6 hours as needed for pain. (Patient not taking: Reported on 07/28/2021) No current facility-administered medications for this visit. Physical Exam Vitals: There were no vitals taken for this visit. Psych: Pleasant, good affect and mood General Appearance: Well appearing, alert, in no acute distress, well-hydrated, well nourished.. Skin: Skin color, texture, turgor normal, no suspicious rashes or lesions. Peripheral Pulses: Normal. Neurologic: Gait normal. Reflexes normal and symmetric. Sensation grossly intact.. Lymph Nodes: No cervical lymphadenopathy, No supraclavicular lymphadenopathy, No axillary lymphadenopathy., and No inguinal lymphadenopathy.. Respiratory: No recent pulmonary infection, hemoptysis, chronic cough, or shortness of breath at rest Rheumatologic: Joint deformities: right elbow pain Right Elbow Exam Tenderness The patient is experiencing tenderness in the lateral epicondyle and medial epicondyle. Range of Motion Extension: normal Flexion: normal Pronation: normal Supination: normal Muscle Strength Pronation: 5/5 Supination: 5/5 Other Erythema: absent Sensation: normal Pulse: present Comments: Weakness in ulnar nerve/abduction Med, rad nerves intact Left Elbow Exam Left elbow exam is normal. Tenderness The patient is experiencing no tenderness. Range of Motion Extension: normal Flexion: normal Pronation: normal Supination: normal Muscle Strength Pronation: 5/5 Supination: 5/5 Other Erythema: absent Sensation: normal Pulse: present Assessment and Plan Radiographs: I have independently reviewed films and my findings are the same. Impression: Encounter Diagnosis ICD-10-CM 1. 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 Lateral epicondylitis of right elbow M77.11 CONSULT TO DAM WORKER Today, in detail, through a thorough evaluation, we discussed possible etiologies of pain and our plans for further diagnostic and therapeutic interventions. We discussed strategies for decreasing pain and improving strength, stability and motion. Patient's questions were answered in detailed. Patient verbalizes understanding and agrees with the treatment plan as discussed. Discussed with patient possible options for treatment. Patient elected proceed with injection. Patient told not to submerge the injected area for 24 hours in a hot tub, or bath, injection may take 2 weeks for improvement to be noticed, follow-up in 2 -6 weeks if symptoms do not resolve. All questions answered patient agreement of plan. Apply ice Limit activities as discussed Rest Do not submerge limb in water for 24 hours Cont current meds Watch sugars/decrease carbs Call if warm/hot/red Discussed with patient that if the injection does not work after 2 to 4 weeks to come back for reevaluation. Discussed the next 3 days may feel worse before it feels better. Discussed if having continued pain to return. May get injection every 3 months B complex vitamin Referral to PT/OT Night towel around elbow with loose rubber bands to keep elbow relatively straight while sleeping Antiinflammatories as needed weakness so ordered EMG/NCS If conservative treatment fails, would be candidate for US guided ulnar nerve injection as well Ergonomic changes to work if possible Raudle Deras D.O. M.P.H. documented in this encounter [facility] Note 04-06-2023 Telephone Encounter - Marcella Urbano - 04/06/2023 1:02 PM EST Note Date & Type Note Facility 04-06-2023 Miscellaneous Notes Formattin g of this note might be different from the original. Left VM/ sent mychart informing patient appointment was changed from 10:00 to 9:30 due to provider going into surgery tomorrow. Asked pt to call back to confirm documented in this encounter [facility] History of Past illness Narrative 05-04-2021 Note Date & Type Note Facility documented as of this encounter (statuses as of 04/07/2023) [facility] History of Past illness Narrative 05-04-2021 Note Date & Type Note Facility documented as of this encounter (statuses as of 04/19/2023) [facility] Evaluation note Note Date & Type Note Facility documented in this encounter [facility] Summary Purpose Family History No Family History Records FoundNo Family History Records FoundNo Family History Records Found Advance Directives No Advanced Directives Records FoundNo Advanced Directives Records FoundNo Advanced Directives Records Found Reason for Referral Specialty Diagnoses / Procedures Referred By Contac t Referred To Contact [facility] Diagnoses Ulnar neuritis, right Lateral epicondylitis of right elbow Procedures CONSULT TO DAM WORKER OCCUPATIONAL THERAPY EVAL HIGH COMPLEX 60 MINS Raudel Deras DO [address] [place] [address] [facility] [address] [place] [address] Referral ID Status Reason Start Date Expiration Date Visits Requested Visits Authorized [id number] Pending Review Auto-Generat ed Referral 3 04/06/2024 1 1 Medications Administered Section Inactive Administered Medications - up to 3 most recent administrations Medication Order MAR Action Action Date Dose Rate Site BUPivacaine (PF) 0.5 % (5 mg/mL) 1 mL injection 1 mL, Injection - FOR ORTHO USE ONLY, ONCE, 1 dose, Starting on Mon04/07/23 at 1038, Until Mon04/07/23 at 1038 Given 04/07/2023 10:38 AM EST 1 mL Elbo w, Right triamcinolone acetonide 10 mg injection (KeNALog 10) 10 mg, Injection - FOR ORTHO USE ONLY, ONCE, 1 dose, Starting on Mon04/07/23 at 1038, Until Mon04/07/23 at 1038 Given 04/07/2023 10:38 AM EST 10 mg Elbow, Right Additional Source Comments (unrecognized sect ion and content) No Status Records FoundNo Status Records FoundNo Status Records Found INFORMATION SOURCE (unrecogn ized section and content) DATE CREATED AUTHOR AUTHOR'S ORGANIZ ATION 04/10/2023 [facility] DATE CREATED AUTHOR AUTHOR'S ORGANIZ ATION 06/23/2023 [facility] Source Comments (unrecognize d section and content) In the event this informatio n is protected by the Federal Confidentiality of Alcohol and Drug Abuse Patient Records regulations: The Federal rules restrict any use of the information to criminally investigate or prosecute any alcohol or drug abuse patient.[facility] the event this information is protected by the Federal Confidentiality of Alcohol and Drug Abuse Patient Records regulations: The Federal rules restrict any use of the information to criminally investigate or prosecute any alcohol or drug abuse patient.[facility] Reason for Visit (unrecogniz ed section and content) Reason Comments Appointment Change Care Teams (unrecognized sec tion and content) Test Desk Trouble Locator Relationship Specialty Start Date End Date Carlos Wilburn MD [address] [place] [address] PCP - General Family Medicine 05/07/16 FOR RECORDS PERTAINING TO PATIENTS WHO ARE OR HAVE BEEN ENROLLED IN A CHEMICAL DEPENDENCY/SUBSTANCEABUSE PROGRAM, SOME INFORMATION MAY BE OMITTED. This clinical summary was aggregated from multiple sources. Caution should be exercised in using it in the provision of clinical care. This summary normalizes information from multiple sources, and as a consequence, information in this document may materially change the coding, format and clinical context of patient data. In addition, data may be omitted in some cases. CLINICAL DECISIONS SHOULD BE BASED ON THE PRIMARY CLINICAL RECORDS. [employer] [facility]. provides no warranty or guarantee of the accuracy or completeness of information in this document.
[2023-06-29] MEDS: Lactated Ringers 1,000 ML 15 ML IV (08:15)
--- NOTE | 2023-06-29 08:49 | PCM.HP.STD ---
[facility] - General General Date of Admission: 06/29/23 Date of Service: 06/29/23 Chief Complaint: Screening colonoscopy HPI Narrative MIKY CHICAS, is a 52 M who presents today for screening colonoscopy. He is not having any problems with his bowels. He does not have any chest pain or shortness of breath. He denies any weakness. He denies any headache or dizziness. Overall he is in very good health. He has never had a colonoscopy in the past. [facility] Medical History (Updated 06/27/23 @ 15:07 by Moses Manning) High cholesterol History of deviated nasal septum Home Medications rosuvastatin 20 mg tablet 20 mg PO DAILY 06/27/23 [History Last Taken 06/28/23] Allergy/AdvReac Type Severity Reaction Status Date / Time No Known Allergies Allergy Verified 06/29/23 08:20 Family History Other Heart disease Myocardial infarction Surgical History right knee plica removal Social History (Updated 04/14/23 @ 13:00 by Jena Melton) household members: spouse current occupational status: employed Smoking Status: Never smoker substance use type: does not use ROS Review of Systems ROS Unobtainable: other Constitutional Constitutional: Denies fatigue, fever(s), poor appetite, weight gain or weight loss ENT HEENT: Denies mouth lesions Cardiovascular Cardiovascular: Denies abdominal bloating, abdominal edema or abdominal pain Respiratory/Chest Respiratory/Chest: Denies change in mental status, change in phlegm color, chest congestion or chest tightness Gastrointestinal Gastrointestinal: Denies belching, bloating, change in bowel habits, change in stool character, chewing difficulty, coffee ground emesis, constipation, cramping, diarrhea, dyspepsia, dysphagia, early satiety, excessive flatus, fecal incontinence, heartburn, hematemesis, hematochezia, hemorrhoids, loose stools, melena, nausea, odynophagia, rectal bleeding, tenesmus, vomiting or weight changes Genitourinary Genitourinary: Denies abdominal discomfort, burning urination or itching Musculoskeletal Musculoskeletal: Reports as per HPI; Denies muscle weakness or myalgias Integumentary Integumentary: Denies jaundice Neurologic Neurologic: Denies lack of coordination or weakness Psychiatric Psychiatric: Denies confusion, depression, memory loss, mood swings, paranoia or suicidal ideation Endocrine Endocrinology: Denies systems reviewed and no addt'l complaints, except as documented Hematologic/Lymphatic Hematologic/Lymphatic: Denies anemia, easy bleeding, easy bruising or lymphadenopathy Allergic/Immunologic Allergic/Immunologic: Denies systems reviewed and no addt'l complaints, except as documented Vital Signs Vital Signs Vital Signs: 06/29/23 08:20 06/29/23 08:23 Temperature 98.0 F Temperature Source Temporal Pulse Rate 88 Respiratory Rate 16 Respiratory Pattern Normal Blood Pressure 127/85 H Blood Pressure Mean 99 Blood Pressure Source Monitor Blood Pressure Position Semi-Fowlers Blood Pressure Location Left Arm Pulse Ox 96 Oxygen Delivery Method Room Air Weight Weight: 299 lb Body Mass Index (BMI) 40.5 Physical Exam Const alert General Appearance: cooperative Orientation / Consciousness: oriented to person HEENT hearing grossly normal bilaterally Head and Scalp: normal to inspection Face and Sinus: face symmetric Nose: external nose normal Mouth: oral and palatal mucosa normal Eyes conjunctivae normal General Eye: normal appearance of both eyes Neck full ROM General: normal visual inspection Lymph Lymphatic: no lymphadenopathy noted Chest inspection of chest normal and palpation of chest normal Chest: symmetrical chest wall rise Resp normal respiratory effort Effort and Inspection: able to speak in complete sentences Cardio regular rate GI non-distended Percussion: normal to percussion Rectal Exam: deferred Neuro Speech: speech normal Gait (Neuro): normal gait Assessment & Plan Assessment/Plan (1) Encounter for screening for malignant neoplasm of colon: PLAN: He was explained alternatives, risk, benefits including outstanding bleeding, infection, sepsis, perforation, need for mergers and . He will have an ASA of 2.
--- NOTE | 2023-06-29 09:33 | OP.CCLET_ITS ---
06/29/2023 Leonides Galvez [address] [place] [address] Re : Colonoscopy procedure for Linden Carlisle Dear Dr. Galvez This procedure was performed on June. My impressions and recommendations are as follows: Impressions : - Diverticulosis in the recto-sigmoid colon and in the sigmoid colon. - No specimens collected. Recommendations : - Discharge patient to home. - Resume previous diet. - Continue present medications. - Repeat colonoscopy in 10 years for screening purposes. My findings are described in the full procedure note, which is enclosed. If I can be of further assistance, please feel free to contact me at . Sincerely, Myles Childress, 06/29/2023 9:32:41 AM This report has been signed electronically.
--- NOTE | 2023-06-29 09:33 | OP.COLON_ITS ---
Patient Name: Linden Carlisle Procedure Date: 06/29/2023 9:05 AM Date of : 1970 Age: 52 Procedure: Colonoscopy Indications: Screening for colorectal malignant neoplasm Providers: Myles Childress DO Medicines: Monitored Anesthesia Care Patient Profile: This is a 52 year old male. Refer to note in patient chart for documentation of history and physical. Last Colonoscopy: none. The patient's first colonoscopy is today. Complications: No immediate complications. Procedure: Pre-Anesthesia Assessment: - Prior to the procedure, a History and Physical was performed, and patient medications and allergies were reviewed. The patient is competent. The risks and benefits of the procedure and the sedation options and risks were discussed with the patient. All questions were answered and informed consent was obtained. Patient identification and proposed procedure were verified by the physician in the pre-procedure area. Mental Status Examination: alert and oriented. Airway Examination: normal oropharyngeal airway and neck mobility. Respiratory Examination: clear to auscultation. CV Examination: normal. Prophylactic Antibiotics: The patient does not require prophylactic antibiotics. Prior Anticoagulants: The patient has taken no anticoagulant or antiplatelet agents. ASA Grade Assessment: II - A patient with mild systemic disease. After reviewing the risks and benefits, the patient was deemed in satisfactory condition to undergo the procedure. The anesthesia plan was to use monitored anesthesia care (MAC). Immediately prior to administration of medications, the patient was re-assessed for adequacy to receive sedatives. The heart rate, respiratory rate, oxygen saturations, blood pressure, adequacy of pulmonary ventilation, and response to care were monitored throughout the procedure. The physical status of the patient was re-assessed after the procedure. After I obtained informed consent, the scope was passed under direct vision. Throughout the procedure, the patient's blood pressure, pulse, and oxygen saturations were monitored continuously. The Colonoscope was introduced through the anus and advanced to the cecum, identified by appendiceal orifice and ileocecal valve. The colonoscopy was performed without difficulty. The patient tolerated the procedure well. The quality of the bowel preparation was good. The ileocecal valve, appendiceal orifice, and rectum were photographed. Scope In: 9:17:13 AM Scope Withdrawal Time 0 hours 7 minutes 2 seconds Scope Out: 9:26:12 AM Total Procedure Duration Time 0 hours 8 minutes 59 seconds Findings: The perianal and digital rectal examinations were normal. A few small-mouthed diverticula were found in the recto-sigmoid colon and sigmoid colon. The exam was otherwise normal throughout the examined colon. Impression: - Diverticulosis in the recto-sigmoid colon and in the sigmoid colon. - No specimens collected. Recommendation: - Discharge patient to home. - Resume previous diet. - Continue present medications. - Repeat colonoscopy in 10 years for screening purposes. Procedure Code(s): --- Professional --- G0121, Colorectal cancer screening; colonoscopy on individual not meeting criteria for high risk CPT copyright 2021 [employer]. All rights reserved. The codes documented in this report are preliminary and upon care coordination manager review may be revised to meet current compliance requirements. Myles Childress DO 06/29/2023 9:32:41 AM This report has been signed electronically. Number of Addenda: 0 Note Initiated On: 06/29/2023 9:05 AM
== END 2023-06-29 10:06 | disposition home or self-care (01) ==
LOC: EN 07:51 → AC 07:52
PROVIDERS: PCP Family Medicine; Referring Provider Internal Medicine Gastroenterology; Visit Provider Internal Medicine Gastroenterology
PROC: 0DJD8ZZ Inspection of Lower Intestinal Tract, Via Natural or Artificial Opening Endoscopic (ICD-10-PCS; CPT 45378; principal; 2023-06-29 08:55)
DX: Z12.11 Encounter for screening for malignant neoplasm of colon (principal); K57.30 Diverticulosis of large intestine without perforation or abscess without bleeding; E78.00 Pure hypercholesterolemia, unspecified; Z79.899 Other long term (current) drug therapy
CPT/HCPCS: G0121; J7120; J2405

== ENCOUNTER → 2023-07-27 | Outpatient (CLI) | payer OTHER, SELFPAY ==
--- OUTSIDE RECORDS SUMMARY | 2023-07-27 08:34 | XMS RPT_ITS | CCD ---
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 Work Phone: 03-19-2013 [...] Start: 04-07-2023 End: 04-07-2023 ambulatory CARLOS WILBURN Facility:[facility] Start: 04-07-2023 End: 04-07-2023 Patient encounter procedure Raudel Deras DO Work Phone: Orthopaedics Procedures Date Procedure Procedure Detail Performing Clinician Start: 04-07-2023 Injection single ten don origin/insertion Raudel Deras DO Work Phone: Plan of Treatment Date Care Activity Detail Author Start: 09-29-2031 Urine microalbumin profile DTaP,Tdap,Td Vaccine (2 - Td or Tdap) [facility] Start: 01-27-2023 Covid-19 Vaccine ( season) Covid-19 Vaccine ( season) [facility] Start: 01-27-2023 Influenza vaccination [facility] Start: 2022 Shingrix Vaccine (1 of 2) Shingrix Vaccine (1 of 2) [facility] Start: 05-29-2022 Depression Assessment Depression Assessment [facility] Start: 2017 Cologuard (FIT-DNA) Cologuard (FIT-DNA) [facility] Start: 2017 Colonoscopy Colonoscopy [facility] Start: 2017 Colorectal Cancer Screening Colorectal Cancer Screening [facility] Start: [address] Colonography [facility] Start: 2017 Diabetes Screening Diabetes Screening [facility] Start: 2017 Fecal Occult Blood Fecal Occult Blood [facility] Start: 2017 Sigmoidoscopy Sigmoidoscopy [facility] Start: 04-27-2017 End: 04-27-2017 Mri any jt lower extrem w/o contrast matrl MRI Joint Lower Extremity [facility] Work Phone: Start: 04-27-2017 End: 04-27-2017 Appointment Appointment [facility] Work Phone: Start: 03-01-2017 End: 03-01-2017 Physical Therapy General Physical Therapy [facility] [address], [address] [place] [address], [id number] [facility] Work Phone: Start: 02-23-2017 End: 02-23-2017 Radiologic exam knee complete 4/more views X-Ray, Knee [facility] Work Phone: Start: 05-15-2014 End: 05-15-2014 Radex hand minimum 3 views X-Ray, Hand [facility] Work Phone: Start: 08-03-2007 Lipid 1996 panel - Serum or Plasma Lipid Screening [facility] Start: 1990 Hepatitis C Screening Hepatitis C Screening [facility] Start: 1990 HIV Screening HIV Screening [facility] Start: 1972 Hepatitis B Vaccine (1 of 3 - 3-dose series) Hepatitis B Vaccine (1 of 3 - 3-dose series) [facility] NEUROMUSCULAR ULTRASOUND/NEUROLOGY NEUROMUSCULAR ULTRASOUND/NEUROLOGY Procedures Routine Ulnar neuritis, right Ordered: 04/07/2023 [facility] Work Phone: Payers Date Payer Category Payer Private Health Insurance [employer] A ETNA POS [id number] 2020-Present [phone] [address] [place] [address] POS [id number] 2020 Private Health Insurance [id number] Social History Date Type Detail Facility Start: 05-07-2016 End: 04-07-2023 Tobacco smoking status NHIS Never smoked tobacco [facility] Start: 05-07-2016 End: 04-07-2023 Tobacco use and exposure Smokeless tobacco non-user [facility] Start: 07-28-2021 End: 04-07-2023 Alcohol intake Current drinker of alcohol (finding) [facility] Start: 04-07-2023 History of Social function [facility] Start: 04-07-[address] [facility] National Score (1-10 0), lower number is lower risk 74 [facility] Start: 04-29-2021 [facility] Start: 1970 Sex Assigned At Not on file [facility] Progress note 04-07-2023 Note Date & Type Note Facility 04-07-2023 Note HNO ID: [id number] Author: Raudel Deras, DO Service: ? Author Type: Physician Type: Progress Notes Filed: 04/07/2023 10:40 AM Note Text: Additional Injections: R elbow joint for lateral epicondylitis (Not the joint) Informed Consent Consent Obtained: Verbal Tornillo Protocol A moment to CARE was completed. [...] right G56.21 N (more content not included)... [facility] Progress note 04-07-2023 Note Date & Type Note Facility 04-07-2023 Note HNO ID: [id number] Author: Marika Martinez RT(R) Service: Radiology Author [...] RT Verito(R) April 07, 2023 9:25 AM [facility] History of Present illness Narrative 04-07-2023 Raudel [...] the joint) Informed Consent Consent Obtained: Verbal [place]illo Protocol A moment to CARE was completed. 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 Lateral epicondylitis of right elbow M77.11 CONSULT TO BOAT CARPENTER MECHANIC Today, in detail, through a thorough evaluation, [...] well Ergonomic changes to work if possible Raudel Deras D.O. [facility] documented in this encounter [facility] Note 04-06-2023 Telephone Encounter - Marcella Urbano - 04/06/2023 1:02 PM EST Note Date & Type Note Facility 04-06-2023 Miscellaneous Notes Formattin g of this note might be different from the original. Left VM/ sent mychart informing patient appointment was changed from 10:00 to 9:30 due to provider going into surgery tomorrow. Asked pt to call back to confirm documented in this encounter [facility] History of Past illness Narrative 05-04-2021 Note Date & Type Note Facility documented as of this encounter (statuses as of 04/07/2023) [facility] History of Past illness Narrative 05-04-2021 Note Date & Type Note Facility documented as of this encounter (statuses as of 04/19/2023) [facility] Evaluation note Note Date & Type Note Facility documented in this encounter [facility] Summary Purpose Family History No Family History Records FoundNo Family History Records FoundNo Family History Records Found Advance Directives No Advanced Directives Records FoundNo Advanced Directives Records FoundNo Advanced Directives Records Found Reason for Referral Specialty Diagnoses / Procedures Referred By Contac t Referred To Contact [facility] Diagnoses Ulnar neuritis, right Lateral epicondylitis of right elbow Procedures CONSULT TO BOAT CARPENTER MECHANIC OCCUPATIONAL THERAPY EVAL HIGH COMPLEX 60 MINS Raudel Dreas DO [address] [place] [address] [facility] [address] [place] [address] Referral ID Status Reason Start Date Expiration Date Visits Requested Visits Authorized [id number] Pending Review Auto-Generat ed Referral 3 04/06/2024 [...] DATE CREATED AUTHOR AUTHOR'S ORGANIZ ATION 04/10/2023 [facility] DATE CREATED AUTHOR AUTHOR'S ORGANIZ ATION 06/23/2023 [facility] Source Comments (unrecognize d section and content) In the event this informatio n is protected by the Federal Confidentiality of Alcohol and Drug Abuse Patient Records regulations: The Federal rules restrict any use of the information to criminally investigate or prosecute any alcohol or drug abuse patient[facility] the event this information is protected by the Federal Confidentiality of Alcohol and Drug Abuse Patient Records regulations: The Federal rules restrict any use of the information to criminally investigate or prosecute any alcohol or drug abuse patient.[facility] Reason for Visit (unrecogniz ed section and content) Reason Comments Appointment Change Care Teams (unrecognized sec tion and content) [employer] Tr[employer] Machine 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 [employer] [facility]. provides no warranty or guarantee of the accuracy or completeness of information in this document.
[2023-07-27 10:39] LABS: Cholesterol 319 mg/dL (200); High Density Lipoprotein 57 mg/dL; Triglycerides 67 mg/dL; Very Low Density Lipoprotein 13 mg/dL (5-40)
== END | disposition home or self-care (01) ==
LOC: MTLAB 08:12
PROVIDERS: PCP Family Medicine; Referring Provider Family Medicine; Visit Provider Family Medicine
DX: E78.5 Hyperlipidemia, unspecified (principal)
CPT/HCPCS: 36415; 80061

== ENCOUNTER → 2024-02-01 | Outpatient (CLI) | payer OTHER, SELFPAY ==
[2024-02-01 10:59] LABS: AST(SGOT) 24 U/L (15-37); Alanine Aminotransfer ALT/SGPT 41 U/L (16-61); Albumin, Serum 3.6 g/dL (3.2-5.0); Alkaline Phosphatase 91 U/L (45-117); Anion Gap 7 (5-15); BUN 15 mg/dL (7-18); BUN/Creat Ratio 17.8 RATIO (10-20); Calcium,Total 8.9 mg/dL (8.5-10.1); Chloride 108 mmol/L (98-107); Cholesterol 327 mg/dL (200); Creatinine, Serum 0.84 mg/dL (0.70-1.30); EST Glomerular Filtration Rate 102 mL/min (>60); Est Glom Filt Rate - Afr Amer 123 mL/min (>60); Globulin 3.6 g/dL (2.2-4.2); Glucose 99 mg/dL (74-106); High Density Lipoprotein 47 mg/dL; Potassium 3.9 mmol/L (3.5-5.1); Protein, Total 7.2 g/dL (6.4-8.2); Sodium Level 139 mmol/L (136-145); Triglycerides 109 mg/dL; Very Low Density Lipoprotein 22 mg/dL (5-40)
[2024-02-02 12:09] LABS: CRP, High Sensitivity 2.02 mg/L (0.00-3.00)
== END | disposition home or self-care (01) ==
PROVIDERS: PCP Family Medicine; Referring Provider Family Medicine; Visit Provider Family Medicine
DX: E78.5 Hyperlipidemia, unspecified (principal)
CPT/HCPCS: 36415; 80053; 80061; 84443; 86141

== ENCOUNTER → 2024-04-09 | Outpatient (CLI) | payer OTHER, SELFPAY ==
[2024-04-09 10:38] LABS: Cholesterol 219 mg/dL (200); High Density Lipoprotein 61 mg/dL; Triglycerides 63 mg/dL; Very Low Density Lipoprotein 13 mg/dL (5-40)
== END | disposition home or self-care (01) ==
PROVIDERS: PCP Family Medicine; Referring Provider Family Medicine; Visit Provider Family Medicine
DX: E78.5 Hyperlipidemia, unspecified (principal)
CPT/HCPCS: 36415; 80061

== ENCOUNTER → 2024-08-20 | Outpatient (CLI) | payer OTHER, SELFPAY ==
[2024-08-20 12:03] LABS: ALB/GLOB Ratio 1.5 RATIO (0.9-2.4); AST(SGOT) 29 U/L (<=37); Alanine Aminotransfer ALT/SGPT 48 U/L (<=46); Albumin, Serum 4.2 g/dL (3.5-5.0); Alkaline Phosphatase 85 U/L (40-129); Anion Gap 11 (5-15); BUN 18 mg/dL (4-19); BUN/Creat Ratio 18.5 RATIO (10-20); Calcium,Total 9.3 mg/dL (7.6-11.0); Chloride 105 mmol/L (98-108); Cholesterol 246 mg/dL (<=200); Creatinine, Serum 0.98 mg/dL (0.70-1.20); EST Glomerular Filtration Rate 93 (>60); Globulin 2.8 g/dL (2.2-4.2); Glucose 102 mg/dL (70-99); High Density Lipoprotein 53 mg/dL; Low Density Lipoprotein Calc. 180 mg/dL; Potassium 4.3 mmol/L (3.3-5.1); Sodium Level 140 mmol/L (133-145); Triglycerides 68 mg/dL; Very Low Density Lipoprotein 14 mg/dL (5-40); cholesterol:hdl ratio screen 4.66
[2024-08-20 16:51] LABS: Microalbumin,Random Urine 46.5 mg/L (NO RANGE EST.)
== END | disposition home or self-care (01) ==
LOC: MTLAB 07:20
PROVIDERS: PCP Family Medicine; Referring Provider Family Medicine; Visit Provider Family Medicine
DX: Z00.00 Encounter for general adult medical examination without abnormal findings (principal); Z12.5 Encounter for screening for malignant neoplasm of prostate; E78.5 Hyperlipidemia, unspecified
CPT/HCPCS: 36415; 80053; 80061; 82043; 84153; G0103

== ENCOUNTER → 2025-04-28 | Outpatient (CLI) | payer OTHER, SELFPAY ==
--- OUTSIDE RECORDS SUMMARY | 2025-04-28 07:39 | XMS RPT_ITS | CCD ---
Author Organization [facility] Care Team Providers Care Filtration Supervisor Name Role Phone Raudel Deras Unavailable Esther Gaspar Unavailable Katlyn Galvez MD Primary Care Provider KATLYN GALVEZ Primary Care UnavailRAUDEL Dixon Referring Unavailab Dr. Leonides Bacon Primary Care Provider Jena Melton Attending Provider Unavailable Friend, Dr. Bueno Attending Provider Friend, Dr. Bueno Referring Provider [phone] FriendDr. Bueno Other Provider Katlyn Galvez MD Primary Care Provider KATLYN GALVEZ Primary Care UnavailRAUDEL Dixon Referring Unavailab RAUDEL Amaro Attending Unavailab KATLYN Bacon Primary Care Unavailabl RAUDEL Palmer Attending Unavailab LEONARD East Attending Unavailable KATLYN GALVEZ Primary Care UnavailDr. Katlyn Moody MD Primary Care Provider Dr. Katlyn Galvez MD Attending Provider [phone] Dr. Katlyn Galvez MD Referring Provider [phone] Katlyn Galvez Attending Unavailable Katlyn Galvez Referring Unavailable Katlyn Galvez Primary Care Unavailable Katlyn Galvez Attending Unavailable Katlyn Galvez Referring Unavailable Katlyn Galvez Primary Care Unavailable Katlyn Galvez Attending Unavailable Katlyn Galvez Referring Unavailable Katlyn Galvez Primary Care Unavailable Medications Current Medications Medication Drug Class(es) Dates Sig (Normalized) Sig (Original) acetaminophen 325 mg / oxyCODONE hydrochloride 5 mg oral tablet (11 sources) Opioid Agonist Start: 05-04-2021 take 1 tablet by mouth every six hours as needed for pain oxyCODONE-acetamino phen (PERCOCET) 5-325 mg tablet Indications: Tenosynovitis of left wrist Take 1 tablet by mouth every 6 hours as needed for pain. 12 tablet 05/04/2021 Active Start: 03-21-2018 End: 03-26-2018 take 1-2 tablets by mouth every six hours as needed for pain Oxycodone-Acetaminophen 1 TABLET tablet Discontinued 1 - 2 {tbl} PO EVERY 6 HOURS NEEDED as needed for Pain 40 March 21, 2018 12:00am March 25, 2018 12:00am March 26, 2018 12:13am take one to two tabs every 6 hours as needed for pain, stop all other narcs and tylenol Start: 03-21-2018 End: 03-26-2018 take 1-2 tablets by mouth every six hours as needed for pain Oxycodone-Acetaminophen Discontinued 1 - 2 TABLET PO EVERY 6 HOURS NEEDED 40 March 20, 2018 11:00pm March 25, 2018 11:13pm take one to two tabs every 6 hours as needed for pain, stop all other narcs and tylenol Comment on above: Take 1 tablet by katie th every 6 hours as needed for pain. rosuvastatin calcium 20 mg oral tablet (6 sources) HMG-CoA Reductase Inhibitor Start: take 1 tablet by mouth once daily Rosuvastatin 20 mg tablet Active 20 mg PO DAILY June 27, 2023 1:00am Start: 03-07-2023 take 1 tablet by mouth once ro suvastatin (CRESTOR) 10 mg tablet Take 1 tablet by mouth every afternoon. 03/07/2023 Active Comment on above: Take 1 tablet by katie th every afternoon. Completed/Discontinued Medications Medication Drug Class(es) Dates Sig (Normalized) Sig (Original) 30 ml bupivacaine hydrochloride 5 mg/ml injection (5 sources) Amide Local Anesthetic Start: 08-09-2024 End: 08-09-2024 BUPivacaine (PF) 0.5 % (5 mg/mL) 1 mL injection Start: 08-09-2024 End: 08-09-2024 1 mL, Injection - FOR ORTHO USE ONLY, ONCE, 1 dose, Starting on Mon08/09/24 at 1417, Until Mon08/09/24 at 1417 Start: 11-02-2023 End: 11-02-2023 BUPivacaine (PF) 0.5 % (5 mg /mL) 1 mL injection Start: 04-07-2023 End: 04-07-2023 BUPivacaine (PF) 0.5 % (5 mg /mL) 1 mL injection meloxicam 15 mg oral tablet (7 sources) Nonsteroidal Anti-inflammatory Drug Start: 07-06-2018 End: 04-14-2023 take 1 tablet by mouth once daily Meloxicam (Mobic) 15 mg tablet Discontinued 15 mg PO DAILY July 06, 2018 1:00am April 14, 2023 2:04pm Start: 03-19-2013 MOBIC 7.5 MG T ABS daily MELOXICAM [id number] Raudel Deras rivaroxaban 20 mg oral tablet (15 sources) Factor Xa Inhibitor Start: 04-13-2018 End: 07-06-2018 take 1 tablet by mouth once daily at mealtime Rivaroxaban 20 mg tablet Discontinued 20 mg PO DAILY May 17, 2018 5:14pm July 06, 2018 2:55pm must administer with a meal/food Start: 03-26-2018 End: 04-16-2018 take 1 tablet by mouth twice daily at mealtime Rivaroxaban (Xarelto) 15 mg tablet Discontinued 15 mg PO TWICE A DAY 42 March 26, 2018 12:00am April 15, 2018 1:00am April 16, 2018 1:11am must administer with a meal/food for 21 days 20 ml ropivacaine hydrochloride 5 mg/ml injection (2 sources) Amide Local Anesthetic Start: 08-09-2024 End: 08-09-2024 ROPivacaine (PF) 5 mg/mL (0.5 %) 1 mL injection (NAROPIN) Start: 08-09-2024 End: 08-09-2024 1 mL, Injection - FOR ORTHO USE ONLY, ONCE, 1 dose, Starting on Mon08/09/24 at 1417, Until Mon08/09/24 at 1417 triamcinolone acetonide 10 mg/ml injectable suspension (5 sources) Corticosteroid Start: 08-09-2024 End: 08-09-2024 triamcinolone acetonide 10 mg injection (KeNALog 10) Start: 08-09-2024 End: 08-09-2024 10 mg, Injection - FOR ORTHO USE ONLY, ONCE, 1 dose, Starting on Mon08/09/24 at 1417, Until Mon08/09/24 at 1417 Start: 11-02-2023 End: 11-02-2023 triamcinolone acetonide 10 m g injection (KeNALog 10) Start: 04-07-2023 End: 04-07-2023 triamcinolone acetonide 10 m g injection (KeNALog 10) Problems Active Problems Problem Classification Problem Date Documented Date Episodic/Chronic Abdominal pain (4 sources) Abdominal pain; Translations: [Unspecified abdominal pain] 06-16-2022 Episodic Disorders of lipid metabolism (1 source) Hyperlipidemia, unspecified; Translations: [Hyperlipidemia, unspecified] Onset: 05-08-2024 Chronic Joint disorders and dislocations; trauma-related (6 sources) Other tear of lateral meniscus, current injury, right knee, initial encounter; Translations: [Tear of lateral meniscus of knee] Onset: 04-27-2017 04-27-2017 Episodic Other connective tissue disease (3 sources) Lateral epicondylitis of right humerus; Translations: [Lateral epicondylitis, right elbow] 04-07-2023 Episodic Other nervous system disorders (2 sources) Neuritis of right ulnar nerve; Translations: [Lesion of ulnar nerve, right upper limb] 04-07-2023 Chronic Other nutritional; endocrine; and metabolic disorders (6 sources) Body mass index 30+ - obesity; Translations: [Obesity, unspecified] Onset: 04-29-2021 04-29-2021 Chronic Other screening for suspected conditions (not mental disorders or infectious disease) (4 sources) Patient encounter status; Translations: [Encounter for screening for malignant neoplasm of colon] 04-14-2023 Episodic Residual codes; unclassified (1 source) Pain, unspecified; Translations: [Pain] Onset: 04-07-2023 Episodic Residual codes; unclassified (1 source) Pain; Translations: [Pain, unspecified] 04-07-2023 Episodic Past or Other Problems Problem Classification Problem Date Documented Da te Episodic/Chronic Complications of surgical procedures or medical care (6 sources) Difficult intubation; Translations: [Failed or difficult intubation, initial encounter] Onset: 04-29-2021 04-29-2021 Episodic Other bone disease and musculoskeletal deformities (2 sources) Chondromalacia; 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, right knee] Onset: 02-23-2017 02-23-2017 Episodic Other connective tissue disease (8 sources) Impingement syndrome of shoulder region; Translations: [Tendinitis of wrist] Onset: 05-15-2014 03-20-2013 Episodic Other connective tissue disease (4 sources) Tenosynovitis of left wrist; Translations: [Synovitis and tenosynovitis, unspecified] Onset: 05-04-2021 Resolved: 05-04-2021 05-04-2021 Episodic Other non-traumatic joint disorders (4 sources) Knee pain; Translations: [Knee joint effusion] 08-30-2012 Episodic Other skin disorders (4 sources) Mass of wrist; Translations: [Localized swelling, mass and lump, left upper limb] Onset: 05-04-2021 Resolved: 05-04-2021 05-04-2021 Episodic Phlebitis; thrombophlebitis and thromboembolism (6 sources) H/O: Deep vein thrombosis; Translations: [Personal [...] Results Test Name Value Interpretation Reference Range Facility Albumin DL <= 20 mg/L (U) [M ass/Vol]Ordered By: Katlyn Galvez on 08-20-2024 Urine Random Microalbumin 46.5 mg/L NO RANGE EST. [facility] Anion gap in Serum or Plasma Ordered By: Katlyn Galvez on 08-20-2024 Anion gap [Moles/Vol] 11 mmol/L 5-15 [facility] BUN/creatinine ratioOrdered By: Katlyn Galvez on 08-20-2024 Urea nitrogen/Creatinine [Mass ratio] 18.5 mg/mg 10-20 [facility] Bilirubin, totalOrdered By: Katlyn Galvez on 08-20-2024 Bilirubin [Mass/Vol] 0.80 mg/dL 0.00-1.30 [facility] Calculated very low density lipoprotein (VLDL) cholesterol measurementOrdered By: Katlyn Galvez on 08-20-2024 VLDL Cholesterol 14 mg/dL 5-40 [facility] Carbon dioxide, total [Moles /volume] in Central venous bloodOrdered By: Katlyn Galvez on 08-20-2024 CO2 [Moles/Vol] 24.0 mmol/L 21.0-32.0 [facility] Chloride assayOrdered By: Kathia Galvez on 08-20-2024 Chloride [Moles/Vol] 105 mmol/L 98-108 [facility] Comprehensive Metabolic Prof ilon 08-20-2024 Albumin [Mass/Vol] 4.2 g/dL Normal 3.5-5.0 [facility] Comment on above: Order Comment: Order Date: 06/17/24 Order Info: [id number] - CMP Order Info: [id number] - LIPID Order Info: [id number] - PSA Performed By: #### L 500.4100, L502.0500, L501.9910, L500.4050 #### [facility] [address] [place], [place], [id number] Albumin/Globulin [Mass ratio] 1.5 {ratio} Normal 0.9-2.4 [facility] Comment on above: Order Comment: Order Date: 06/17/24 Order Info: [id number] - CMP Order Info: [id number] - LIPID Order Info: [id number] - PSA Performed By: #### L 500.4100, L502.0500, L501.9910, L500.4050 #### [facility] [address] [place], [place], [id number] ALK PHOS 85 U/L Normal 40-129 [facility] Comment on above: Order Comment: Order Date: 06/17/24 Order Info: [id number] - CMP Order Info: [id number] - LIPID Order Info: [id number] - PSA Performed By: #### L 500.4100, L502.0500, L501.9910, L500.4050 #### [facility] [address] [place], [address] ALT [Catalytic activity/Vol] 48 U/L High <=46 [facility] Comment on above: Order Comment: Order Date: 06/17/24 Order Info: [id number]- - CMP Order Info: [id number] - LIPID Order Info: [id number] - PSA Performed By: #### L 500.4100, L502.0500, L501.9910, L500.4050 #### [facility] [address] [place], [place], [id number] AST [Catalytic activity/Vol] 29 U/L Normal <=37 [facility] Comment on above: Order Comment: Order Date: 06/17/24 Order Info: 0786- - CMP Order Info: [id number] - LIPID Order Info: [id number] - PSA Performed By: #### L 500.4100, L502.0500, L501.9910, L500.4050 #### [facility] [address] [place], [place], [id number] Bilirubin [Mass/Vol] 0.80 mg/dL Normal 0.00-1.30 [facility] Comment on above: Order Comment: Order Date: 06/17/24 Order Info: 0786- - CMP Order Info: [id number] - LIPID Order Info: [id number] - PSA Performed By: #### L 500.4100, L502.0500, L501.9910, L500.4050 #### [facility] [address] [place], [place], [id number] BUN/CRE 18.5 RATIO Normal 10-20 [facility] Comment on above: Order Comment: Order Date: 06/17/24 Order Info: [id number] - CMP Order Info: [id number] - LIPID Order Info: [id number] - PSA Performed By: #### L 500.4100, L502.0500, L501.9910, L500.4050 #### [facility] [address] [place], [address] Calcium [Mass/Vol] 9.3 mg/dL Normal 7.6-11.0 [facility] Comment on above: Order Comment: Order Date: 06/17/24 Order Info: 0786- - CMP Order Info: [id number] - LIPID Order Info: 285-1 - PSA Performed By: #### L 500.4100, L502.0500, L501.9910, L500.4050 #### [facility] [address] [place] [place], [address] Chloride [Moles/Vol] 105 mmol/L Normal 98-108 [facility] Comment on above: Order Comment: Order Date: 06/17/24 Order Info: 0786 - CMP Order Info: [id number] - LIPID Order Info: [id number] - PSA Performed By: #### L 500.4100, L502.0500, L501.9910, L500.4050 #### [facility] [address] [place], [address] CO2 [Moles/Vol] 24.0 mmol/L Normal 21.0-32.0 [facility] Comment on above: Order Comment: Order Date: 06/17/24 Order Info: 0786- - CMP Order Info: [id number] - LIPID Order Info: [id number] - PSA Performed By: #### L 500.4100, L502.0500, L501.9910, L500.4050 #### [facility] [address] [place], [address] Creatinine [Mass/Vol] 0.98 mg/dL Normal 0.70-1.20 [facility] Comment on above: Order Comment: Order Date: 06/17/24 Order Info: 0786- - CMP Order Info: [id number] - LIPID Order Info: [id number] - PSA Performed By: #### L 500.4100, L502.0500, L501.9910, L500.4050 #### [facility] [address] [place], [address] GAP 11 Normal 5-15 [facility] Comment on above: Order Comment: Order Date: 06/17/24 Order Info: 0786- - CMP Order Info: [id number] - LIPID Order Info: [id number] - PSA Performed By: #### L 500.4100, L502.0500, L501.9910, L500.4050 #### [facility] [address] [place], [address] GFR/1.73 sq M.predicted among non-blacks MDRD (S/P/Bld) [Vol rate/Area] 93 mL/min/{1.73_m2} Normal >60 [facility] Comment on above: Order Comment: Order Date: 06/17/24 Order Info: 07 - CMP Order Info: [id number] - LIPID Order Info: [id number] - PSA Result Comment: mL/m in/1.73m2 CKD-EPI Creatinine Equation (2020) Performed By: #### L 500.4100, L502.0500, L501.9910, L500.4050 #### [facility] [address] [place], [address] Globulin (S) [Mass/Vol] 2.8 g/dL Normal 2.2-4.2 [facility] Comment on above: Order Comment: Order Date: 06/17/24 Order Info: 0786- - CMP Order Info: [id number] - LIPID Order Info: [id number] - PSA Performed By: #### L 500.4100, L502.0500, L501.9910, L500.4050 #### [facility] [address] [place], [address] Glucose [Mass/Vol] 102 mg/dL High 70-99 [facility] Comment on above: Order Comment: Order Date: 06/17/24 Order Info: [id number] - CMP Order Info: [id number] - LIPID Order Info: 285-1 - PSA Performed By: #### L 500.4100, L502.0500, L501.9910, L500.4050 #### [facility] [address] [place], [address] Potassium [Moles/Vol] 4.3 mmol/L Normal 3.3-5.1 [facility] Comment on above: Order Comment: Order Date: 06/17/24 Order Info: [id number] - CMP Order Info: [id number] - LIPID Order Info: [id number] - PSA Performed By: #### L 500.4100, L502.0500, L501.9910, L500.4050 #### [facility] [address] [place], [address] Sodium [Moles/Vol] 140 mmol/L Normal 133-145 [facility] Comment on above: Order Comment: Order Date: 06/17/24 Order Info: [id number] - CMP Order Info: [id number] - LIPID Order Info: [id number] - PSA Performed By: #### L 500.4100, L502.0500, L501.9910, L500.4050 #### [facility] [address] [place], [address] T PROT 7.0 g/dL Normal 5.9-8.4 [facility] Comment on above: Order Comment: Order Date: 06/17/24 Order Info: [id number] - CMP Order Info: [id number] - LIPID Order Info: [id number] - PSA Performed By: #### L 500.4100, L502.0500, L501.9910, L500.4050 #### [facility] [address] [place], [address] Urea nitrogen [Mass/Vol] 18 mg/dL Normal 4-19 [facility] Comment on above: Order Comment: Order Date: 06/17/24 Order Info: [id number] - CMP Order Info: [id number] - LIPID Order Info: [id number] - PSA Performed By: #### L 500.4100, L502.0500, L501.9910, L500.4050 #### [facility] [address] [place], [place], [id number] GFR/1.73 sq M.predicted debbie g non-blacks MDRD (S/P/Bld) [Vol rate/Area]Ordered By: Katlyn Galvez on 08-20-2024 Estimated GFR (MDRD) Non-Af Amer 93 >60 [facility] Comment on above: mL/min/1.73m2 CKD-EP I Creatinine Equation (2020) LDL calc ser/plasOrdered By: Katlyn Galvez on 08-20-2024 LDL Cholesterol, Calculated 180 mg/dL [facility] Comment on above: Ehlfzwphys=361-052 m g/dL & Higher Lrxm=665 mg/dL or greater Laboratory - Chemistry and C hemistry - challengeOrdered By: Katlyn Galvez on 08-20-2024 AST [Catalytic activity/Vol] 29 U/L <38 [facility] Lipid Profileon 08-20-2024 CHOL:HDL 4.66 Normal [facility] Comment on above: Order Comment: Order Date: 06/17/24 Order Info: [id number] - CMP Order Info: [id number] - LIPID Order Info: [id number] - PSA Performed By: #### L 500.4100, L502.0500, L501.9910, L500.4050 #### [facility] [address] [place], [place], [id number] Cholesterol [Mass/Vol] 246 mg/dL High <=200 [facility] Comment on above: Order Comment: Order Date: 06/17/24 Order Info: [id number] - CMP Order Info: [id number] - LIPID Order Info: [id number] - PSA Result Comment: Chol esterol level, Desirable <200 mg/dL Borderline high cholesterol 200-239 mg/dL High cholesterol >=240 mg/dL Recommendations of the NCEP Adult Treatment Panel for the following risk-cutoff thresholds for the [place] population. Performed By: #### L 500.4100, L502.0500, L501.9910, L500.4050 #### [facility] [address] [place], [address] Cholesterol in HDL [Mass/Vol] 53 mg/dL Normal [facility] Comment on above: Order Comment: Order Date: 06/17/24 Order Info: [id number] - CMP Order Info: - LIPID Order Info: [id number] - PSA Result Comment: Latrice onal Cholesterol Education Program (NCEP) guidelines: <40 mg/dL: Low HDL-cholesterol (major risk factor for CHD) >= 60 mg/dL: High HDL-cholesterol (negative risk factor for CHD) HDL-cholesterol is affected by a number of factors, e.g. smoking, exercise, hormones, sex and age. Performed By: #### L 500.4100, L502.0500, L501.9910, L500.4050 #### [facility] [address] [place], [address] Cholesterol in LDL [Mass/Vol] 180 mg/dL Normal [facility] Comment on above: Order Comment: Order Date: 06/17/24 Order Info: 07 - CMP Order Info: - LIPID Order Info: [id number] - PSA Result Comment: Bord dwpiov=006-924 mg/dL Higher Ofqb=097 mg/dL or greater Performed By: #### L 500.4100, L502.0500, L501.9910, L500.4050 #### [facility] [address] [place], [address] Cholesterol in VLDL [Mass/Vol] 14 mg/dL Normal 5-40 [facility] Comment on above: Order Comment: Order Date: 06/17/24 Order Info: 07 - CMP Order Info: - LIPID Order Info: [id number] - PSA Performed By: #### L 500.4100, L502.0500, L501.9910, L500.4050 #### [facility] [address] [place], [address] Triglyceride [Mass/Vol] 68 mg/dL Normal [facility] Comment on above: Order Comment: Order Date: 06/17/24 Order Info: [id number] - CMP Order Info: [id number] - LIPID Order Info: [id number] - PSA Result Comment: The drugs N-Acetylcysteine and Metamizole may falsely depress this assay. Normal range: <150 mg/dL Borderline High: 150-199 mg/dL High: 200-499 mg/dL Very High: >500 mg/dL Performed By: #### L 500.4100, L502.0500, L501.9910, L500.4050 #### [facility] [address] [place], [address] Microalbumin,Random Urineon 08-20-2024 MICROALBUMIN,UR 46.5 mg/L Normal NO RANGE EST. [facility] Comment on above: Order Comment: [id number] APOLIPOPROTEIN SERUM RMT [id number] APOLIPOPROTEIN SERUM RMT Performed By: #### L 3100.7870, L801.1541 #### [facility] [address], [address] PSA, total screeningOrdered By: Katlyn Galvez on 08-20-2024 Prostate Specific Antigen Screen 1.60 ng/mL 0.02-4.00 [facility] Comment on above: This test was perfor med using the [employer] tPSA method. Measured values of a patient sample can vary depending on the testing procedure used. PSA values determined on patient samples by different testing procedures cannot be used interchangeably. If there is a change in PSA assays while monitoring therapy, sequential testing should be performed to confirm baseline values. PSA,Total - Annual Screenon 08-20-2024 PSA,TOT SCREEN 1.60 ng/mL Normal 0.02-4.00 [facility] Comment on above: Order Comment: Order Date: 06/17/24 Order Info: [id number] - CMP Order Info: [id number] - LIPID Order Info: [id number]- - PSA Result Comment: This test was performed using the [employer] tPSA method. Measured values of a patient??sample can vary depending on the testing procedure used. PSA values determined on patient samples by different testing procedures cannot be used interchangeably. If there is a change in PSA assays while monitoring therapy, sequential testing should be performed to confirm baseline values. Performed By: #### L 500.4100, L502.0500, L501.9910, L500.4050 #### [facility] [address] [place], [address] Potassium (Unsp spec) [Mass/ Vol]Ordered By: Katlyn Galvez on 08-20-2024 Potassium [Moles/Vol] 4.3 mmol/L 3.3-5.1 [facility] Screening total cholesterol/ high density lipoprotein (HDL) cholesterol ratioOrdered By: Katlyn Galvez on 08-20-2024 Cholesterol.total/Chol esterol in HDL [Mass ratio] 4.66 {ratio} [facility] Serum creatinine measurement (mass/volume)Ordered By: Katlyn Galvez on 08-20-2024 Creatinine [Mass/Vol] 0.98 mg/dL 0.70-1.20 [facility] Serum globulin measurementOr dered By: Katlyn Galvez on 08-20-2024 Globulin (S) [Mass/Vol] 2.8 g/dL 2.2-4.2 [facility] Serum glucose measurement (m ass/volume)Ordered By: Katlyn Galvez on 08-20-2024 Glucose [Mass/Vol] 102 mg/dL High 70-99 [facility] Serum or plasma alanine moses otransferase (ALT) measurementOrdered By: Katlyn Galvez on 08-20-2024 ALT [Catalytic activity/Vol] 48 U/L High <47 [facility] Serum or plasma albumin haroldo urement (mass/volume)Ordered By: Katlyn Galvez on 08-20-2024 Albumin [Mass/Vol] 4.2 g/dL 3.5-5.0 [facility] Serum or plasma albumin/glob ulin mass ratioOrdered By: Katlyn Galvez on 08-20-2024 Albumin/Globulin [Mass ratio] 1.5 {ratio} 0.9-2.4 [facility] Serum or plasma alkaline nazia sphatase measurementOrdered By: Katlyn Galvez on 08-20-2024 ALP [Catalytic activity/Vol] 85 U/L 40-129 [facility] Serum or plasma calcium haroldo urement (mass/volume)Ordered By: Katlyn Galvez on 08-20-2024 Calcium [Mass/Vol] 9.3 mg/dL 7.6-11.0 [facility] Serum or plasma cholesterol in HDL measurement (mass/volume)Ordered By: Katlyn Galvez on 08-20-2024 Cholesterol in HDL [Mass/Vol] 53 mg/dL >40 [facility] Comment on above: National Cholesterol Education Program (NCEP) guidelines:<40 mg/dL: Low HDL-cholesterol (major risk factor for CHD)>= 60 mg/dL: High HDL-cholesterol (negative risk factor for CHD)HDL-cholesterol is affected by a number of factors, e.g. smoking, exercise, hormones, sex and age. Serum or plasma cholesterol measurement (mass/volume)Ordered By: Katlyn Galvez on 08-20-2024 Cholesterol [Mass/Vol] 246 mg/dL High <201 [facility] Comment on above: Cholesterol level, D esirable <200 mg/dLBorderline high cholesterol 200-239 mg/dLHigh cholesterol >=240 mg/dLRecommendations of the NCEP Adult Treatment Panel for the following risk-cutoff thresholds for the [place] population. Serum or plasma urea nitroge n measurement (mass/volume)Ordered By: Katlyn Galvez on 08-20-2024 Urea nitrogen [Mass/Vol] 18 mg/dL 4-19 [facility] Sodium levelOrdered By: Nya Galvez on 08-20-2024 Sodium [Moles/Vol] 140 mmol/L 133-145 [facility] Total proteinOrdered By: Catalino webbtopher Galvez on 08-20-2024 Protein [Mass/Vol] 7.0 g/dL 5.9-8.4 [facility] Triglycerides measurementOrd ered By: Katlyn Galvez on 08-20-2024 Triglyceride [Mass/Vol] 68 mg/dL <199 [facility] Comment on above: The drugs N-Acetylcy steine and Metamizole may falsely depress this assay. Normal range: <150 mg/dLBorderline High: 150-199 mg/dLHigh: 200-499 mg/dLVery High: >500 mg/dL Additional Injections: R elb ow jointon 08-09-2024 Raudel Deras DO 08/09/2024 2:18 PM Additional Injections: R elbow joint for lateral epicondylitis 08/09/2024 2:17 PM The procedure site was prepped in the usual sterile fashion. Medications: 10 mg triamcinolone acetonide 10 mg/mL Anesthetics: 1 mL ROPivacaine (PF) 5 mg/mL (0.5 %); 1 mL BUPivacaine (PF) 0.5 % (5 mg/mL) Outcome: tolerated well, no immediate complications Post-injection instructions were reviewed with the patient and the patient voiced understanding of these instructions. Informed Consent Consent Obtained: Verbal [place] Protocol A moment to CARE was completed. SIGN IN Personnel directly involved with the procedure wore the appropriate PPE. Special Equipment: N/A Patient/Surrogate Stated/Verified: Patient name, Date of , Relevant allergies and Intended procedure TIME OUT Relevant labs, photos, and/or imaging studies have been reviewed. Consent documented and matches the intended procedure. No correct side/site applicable for marking and visibility. Medications required for procedure verified. Fire risk assessed and interventions discussed. No implant(s) inserted. SIGN OUT No specimen collected. All instruments, equipment, possible retained foreign bodies accounted for. [facility] CNOVon 08-09-2024 CNOV Office Visit (ORMDNA) ---- MIKY CARLISLE ([id number]) 1970 M Date Time Provider Department 08/09/24 10:45 AM RAUDEL DERAS During your visit today, we recorded the following information about you: Raudel Deras DO 08/09/2024 2:18 PM Signed Follow Up Visit Chief Complaint Miky Carlisle is a 54 year old male who presents today for follow up office visit. Patient presents with: Right Elbow - Pain, Follow Up, Injections History of Present Illness PAIN EVALUATION 2024 1350 Pain Level: 4 Description: Radiating;Shooting Duration Units: Minutes Frequency: Intermittent Intervention/Comfor t measure: Medication;Repositi on Additional Injections: R elbow joint for lateral epicondylitis 08/09/2024 2:17 PM The procedure site was prepped in the usual sterile fashion. Medications: 10 mg triamcinolone acetonide 10 mg/mL Anesthetics: 1 mL ROPivacaine (PF) 5 mg/mL (0.5 %); 1 mL BUPivacaine (PF) 0.5 % (5 mg/mL) Outcome: tolerated well, no immediate complications Post-injection instructions were reviewed with the patient and the patient voiced understanding of these instructions. Informed Consent Consent Obtained: Verbal [place] Protocol A moment to CARE was completed. SIGN IN Personnel directly involved with the procedure wore the appropriate PPE. Special Equipment: N/A Patient/Surrogate Stated/Verified: Patient name, Date of , Relevant allergies and Intended procedure TIME OUT Relevant labs, photos, and/or imaging studies have been reviewed. Consent documented and matches the intended procedure. No correct side/site applicable for marking and visibility. Medications required for procedure verified. Fire risk assessed and interventions discussed. No implant(s) inserted. SIGN OUT No specimen collected. All instruments, equipment, possible retained foreign bodies accounted for. HPI: Miky Carlisle is a 54 year old male for a follow up visit right lateral elbow pain. Patient was last seen in October of 2023 and received a cortisone injection at that visit. It has given him moderate relief until April of 2024. He is here today for another cortisone injection. Pain history is noted as above. Is there any overall improvement in your condition? Yes, with injection Any new injury, since being seen last: [...] Take 1 tablet by mouth every afternoon. oxyCODONE-acetamino phen (PERCOCET) 5-325 mg tablet Take 1 tablet by mouth every 6 hours as needed for pain. (Patient not taking: Reported on 07/28/2021) No current facility-administer ed medications for this visit. Physical Exam Vitals: [...] rest Rheumatologic: Joint deformities: right elbow pain Ortho Exam Assessment and Plan Radiographs: No imaging to review. Impression: Encounter Diagnosis ICD-10-CM 1. Lateral epicondylitis of right elbow M77.11 Additional Injections: R elbow joint Today, in detail, through a thorough evaluation, [...] weeks if symptoms do not resolve. All (more content not included)... Normal [facility] Miscellaneous Lab Procedureo n 04-12-2024 [facility] LAB TEST Normal [facility] Comment on above: Order Comment: [id number] APOLIPOPROTEIN SERUM RMT [id number] APOLIPOPROTEIN SERUM RMT Result Comment: TEST RESULTS LIMITS Apo A1 + B + Ratio Apolipoprotein A-1 156 mg/dL 101-178 Apolipoprotein B 119 High mg/dL <90 Desirable < 90 Borderline High 90 - 99 High 100 - 130 Very High >130 ASCVD RISK THERAPEUTIC TARGET CATEGORY APO B (mg/dL) Very High Risk <80 (if extreme risk <70) High Risk <90 Moderate Risk <90 Apolipo. B/A-1 Ratio 0.8 High ratio 0.0-0.7 Apolipoprotein B/A-1 Ratio Male Female Avg.Risk 0.7 0.6 2X Avg.Risk 0.9 0.9 3X Avg.Risk 1.0 1.0 TESTING PERFORMED AT [facility]. ORIGINAL REPORT ON FILE IN LAB CONTAINS ADDITIONAL TEST SITE INFORMATION. Performed By: #### L 801.1541 #### [facility] [address] [place], [address] Lipid Profileon 04-09-2024 Cholesterol [Mass/Vol] 219 mg/dL High 200 [facility] Comment on above: Order Comment: Order Date: 07/27/23 Order Info: [id number] - LIPID Result Comment: <200 mg/dL Desirable 200-240 mg/dL Borderline >240 mg/dL High Risk Performed By: #### L 500.4100 #### [facility] [address] [place], [place], [id number] Cholesterol in HDL [Mass/Vol] 61 mg/dL Normal [facility] Comment on above: Order Comment: Order Date: 07/27/23 Order Info: [id number] - LIPID Result Comment: The drugs N-Acetylcysteine and Metamizole may falsely depress this assay. Reference Range HDL <40 mg/dL Low HDL Cholesterol HDL >or= 60 mg/dL High HDL Cholesterol Performed By: #### L 500.4100 #### [facility] [address] [place], [address] Cholesterol in LDL [Mass/Vol] 145 mg/dL High 0-130 [facility] Comment on above: Order Comment: Order Date: 07/27/23 Order Info: [id number] - LIPID Performed By: #### L 500.4100 #### [facility] [address] [place], [address] Cholesterol in VLDL [Mass/Vol] 13 mg/dL Normal 5-40 [facility] Comment on above: Order Comment: Order Date: 07/27/23 Order Info: 85703-2 - LIPID Performed By: #### L 500.4100 #### [facility] [address] [place], [address] Triglyceride [Mass/Vol] 63 mg/dL Normal [facility] Comment on above: Order Comment: Order Date: 07/27/23 Order Info: 70739-0 - LIPID Result Comment: The drugs N-Acetylcysteine and Metamizole may falsely depress this assay. Serum Triglycerides Reference Interval Normal <150 mg/dL Borderline high 150 - 199 mg/dL High 200 - 499 mg/dL Very High > or = 500 mg/dL Performed By: #### L 500.4100 #### [facility] [address] [place], [address] Miscellaneous Lab Procedureo n 02-22-2024 MISC LAB TEST Normal [facility] Comment on above: Order Comment: [id number] APOLIPOPROTEIN SERUM RMT [id number] APOLIPOPROTEIN SERUM RMT Result Comment: TEST RESULTS LIMITS Apo A1 + B + Ratio Apolipoprotein A-1 137 mg/dL 101-178 Apolipoprotein B 207 High mg/dL <90 Desirable < 90 Borderline High 90 - 99 High 100 - 130 Very High >130 ASCVD RISK THERAPEUTIC TARGET CATEGORY APO B (mg/dL) Very High Risk <80 (if extreme risk <70) High Risk <90 Moderate Risk <90 Apolipo. B/A-1 Ratio 1.5 High ratio 0.0-0.7 Apolipoprotein B/A-1 Ratio Male Female Avg.Risk 0.7 0.6 2X Avg.Risk 0.9 0.9 3X Avg.Risk 1.0 1.0 TESTING PERFORMED AT [facility]. ORIGINAL REPORT ON FILE IN LAB CONTAINS ADDITIONAL TEST SITE INFORMATION. Performed By: #### L 3106.7870, L745.7592 #### [facility] [address] [place], [address] CRP, High Sensitivity [id number] on 02-02-2024 CRP, HIGH SENS 2.02 mg/L Normal 0.00-3.00 [facility] Comment on above: Result Comment: Rela tive Risk for Future Cardiovascular Event Low <1.00 Average 1.00 - 3.00 High >3.00 Performed at: [address] [id number] Director Index: Tung Huynh PhD, Phone: [phone] Performed By: #### L 3101.7870, L801.1549 #### [facility] [address] [place], [address] Comprehensive Metabolic Prof derrick 02-01-2024 Albumin [Mass/Vol] 3.6 g/dL Normal 3.2-5.0 [facility] Comment on above: Order Comment: Order Date: 07/27/23 Order Info: 0786-1 - CMP Order Date: 01/22/24 Order Info: 72061-2 - LIPID Comments: hyperlipidimia Order Info: 6-3 - TSH hyperlipidimia Performed By: #### L 500.4050, L501.9520 #### [facility] [address] [place], [place], [address] Albumin/Globulin [Mass ratio] 1.0 {ratio} Normal 0.9-2.4 [facility] Comment on above: Order Comment: Order Date: 07/27/23 Order Info: 0786-1 - CMP Order Date: 01/22/24 Order Info: [id number] - LIPID Comments: hyperlipidimia Order Info: 3015-07 - TSH hyperlipidimia Performed By: #### L 500.4050, L501.9520 #### [facility] [address] [place], [place], [address] ALK P 91 U/L Normal 45-117 [facility] Comment on above: Order Comment: Order Date: 07/27/23 Order Info: 0786-1 - CMP Order Date: 01/22/24 Order Info: [id number] - LIPID Comments: hyperlipidimia Order Info: 3015-3 - TSH hyperlipidimia Performed By: #### L 500.4050, L501.9520 #### [facility] [address] [place], [address] ALT [Catalytic activity/Vol] 41 U/L Normal 16-61 [facility] Comment on above: Order Comment: Order Date: 07/27/23 Order Info: 0786-1 - CMP Order Date: 01/22/24 Order Info: 85072-3 - LIPID Comments: hyperlipidimia Order Info: 3016-3 - TSH hyperlipidimia Performed By: #### L 500.4050, L501.9520 #### [facility] [address] [place], [address] AST [Catalytic activity/Vol] 24 U/L Normal 15-37 [facility] Comment on above: Order Comment: Order Date: 07/27/23 Order Info: 0786-1 - CMP Order Date: 01/22/24 Order Info: 63351-7 - LIPID Comments: hyperlipidimia Order Info: 3016-3 - TSH hyperlipidimia Performed By: #### L 500.4050, L501.9520 #### [facility] [address] [place], [address] Bilirubin [Mass/Vol] 1.20 mg/dL High 0.20-1.00 [facility] Comment on above: Order Comment: Order Date: 07/27/23 Order Info: 0786- - CMP Order Date: 01/22/24 Order Info: 48406-5 - LIPID Comments: hyperlipidimia Order Info: 3015-3 - TSH hyperlipidimia Result Comment: For patients on eltrombopag therapy, use of Dimension Goodell TBIL is not recommended. Performed By: #### L 500.4050, L501.9520 #### [facility] [address] [place], [address] BUN/CRE 17.8 RATIO Normal 10-20 [facility] Comment on above: Order Comment: Order Date: 07/27/23 Order Info: 0786-1 - CMP Order Date: 01/22/24 Order Info: 33721-1 - LIPID Comments: hyperlipidimia Order Info: 3016-3 - TSH hyperlipidimia Performed By: #### L 500.4050, L501.9520 #### [facility] [address] [place], [address] CA,Total 8.9 mg/dL Normal 8.5-10.1 [facility] Comment on above: Order Comment: Order Date: 07/27/23 Order Info: 0786-1 - CMP Order Date: 01/22/24 Order Info: 50569-9 - LIPID Comments: hyperlipidimia Order Info: 3015-07 - TSH hyperlipidimia Performed By: #### L 500.4050, L501.9520 #### [facility] [address] [place], [address] Chloride [Moles/Vol] 108 mmol/L High 98-107 [facility] Comment on above: Order Comment: Order Date: 07/27/23 Order Info: 0786-1 - CMP Order Date: 01/22/24 Order Info: 00742-5 - LIPID Comments: hyperlipidimia Order Info: 3015-07 - TSH hyperlipidimia Performed By: #### L 500.4050, L501.9520 #### [facility] [address] [place], [address] CO2 [Moles/Vol] 24.0 mmol/L Normal 21.0-32.0 [facility] Comment on above: Order Comment: Order Date: 07/27/23 Order Info: 0786-1 - CMP Order Date: 01/22/24 Order Info: 04073-3 - LIPID Comments: hyperlipidimia Order Info: 3015-07 - TSH hyperlipidimia Performed By: #### L 500.4050, L545.9520 #### [facility] [address] [place], [address] Creatinine [Mass/Vol] 0.84 mg/dL Normal 0.70-1.30 [facility] Comment on above: Order Comment: Order Date: 07/27/23 Order Info: 0786-1 - CMP Order Date: 01/22/24 Order Info: 51178-9 - LIPID Comments: hyperlipidimia Order Info: 3015-07 - TSH hyperlipidimia Result Comment: The validity of the calculated GFR GFRAA in patients over 70 years has not been determined. Clinical correlation is essential. Performed By: #### L 500.4050, L501.9520 #### [facility] [address] [place], [place], [address] EST GFR - AA 123 mL/min Normal >60 [facility] Comment on above: Order Comment: Order Date: 07/27/23 Order Info: 785-05 - CMP Order Date: 01/22/24 Order Info: 59031-3 - LIPID Comments: hyperlipidimia Order Info: 3015-07 - TSH hyperlipidimia Result Comment: Afri can [place] GFR Calc Performed By: #### L 500.4050, L501.9520 #### [facility] [address] [place], [address] GAP 7 Normal 5-15 [facility] Comment on above: Order Comment: Order Date: 07/27/23 Order Info: 785-05 - CMP Order Date: 01/22/24 Order Info: 43302-5 - LIPID Comments: hyperlipidimia Order Info: 3015-07 - TSH hyperlipidimia Performed By: #### L 500.4050, L501.9520 #### [facility] [address] [place], [address] GFR/1.73 sq M.predicted among non-blacks MDRD (S/P/Bld) [Vol rate/Area] 102 mL/min/{1.73_m2} Normal >60 [facility] Comment on above: Order Comment: Order Date: 07/27/23 Order Info: 07 - CMP Order Date: 01/22/24 Order Info: 94733-0 - LIPID Comments: hyperlipidimia Order Info: 3015-07 - TSH hyperlipidimia Result Comment: Non- GFR Calc Performed By: #### L 500.4050, L501.9520 #### [facility] [address] [place], [address] Globulin (S) [Mass/Vol] 3.6 g/dL Normal 2.2-4.2 [facility] Comment on above: Order Comment: Order Date: 07/27/23 Order Info: 785- - CMP Order Date: 01/22/24 Order Info: 15624-3 - LIPID Comments: hyperlipidimia Order Info: 3015-07 - TSH hyperlipidimia Performed By: #### L 500.4050, L501.9520 #### [facility] [address] [place], [address] Glucose [Mass/Vol] 99 mg/dL Normal 74-106 [facility] Comment on above: Order Comment: Order Date: 07/27/23 Order Info: 0786-1 - CMP Order Date: 01/22/24 Order Info: 21158-1 - LIPID Comments: hyperlipidimia Order Info: 3016-3 - TSH hyperlipidimia Performed By: #### L 500.4050, L501.9520 #### [facility] [address] [place], [address] Potassium [Moles/Vol] 3.9 mmol/L Normal 3.5-5.1 [facility] Comment on above: Order Comment: Order Date: 07/27/23 Order Info: 0786-1 - CMP Order Date: 01/22/24 Order Info: 48749-3 - LIPID Comments: hyperlipidimia Order Info: 3016-3 - TSH hyperlipidimia Performed By: #### L 500.4050, L501.9520 #### [facility] [address] [place], [address] Sodium [Moles/Vol] 139 mmol/L Normal 136-145 [facility] Comment on above: Order Comment: Order Date: 07/27/23 Order Info: 0786-1 - CMP Order Date: 01/22/24 Order Info: 01220-3 - LIPID Comments: hyperlipidimia Order Info: 3016-3 - TSH hyperlipidimia Performed By: #### L 500.4050, L501.9520 #### [facility] [address] [place], [address] T PROT 7.2 g/dL Normal 6.4-8.2 [facility] Comment on above: Order Comment: Order Date: 07/27/23 Order Info: 0786-1 - CMP Order Date: 01/22/24 Order Info: 33653-1 - LIPID Comments: hyperlipidimia Order Info: 3015-07 - TSH hyperlipidimia Performed By: #### L 500.4050, L501.9520 #### [facility] [address] [place], [address] Urea nitrogen [Mass/Vol] 15 mg/dL Normal 7-18 [facility] Comment on above: Order Comment: Order Date: 07/27/23 Order Info: 0786-1 - CMP Order Date: 01/22/24 Order Info: 19202-9 - LIPID Comments: hyperlipidimia Order Info: 3015-07 - TSH hyperlipidimia Performed By: #### L 500.4050, L501.9520 #### [facility] [address] [place], [address] Lipid Profileon 02-01-2024 Cholesterol [Mass/Vol] 327 mg/dL High 200 [facility] Comment on above: Order Comment: Order Date: 07/27/23 Order Info: 0786- - CMP Order Date: 01/22/24 Order Info: 11243-8 - LIPID Comments: hyperlipidimia Order Info: 3015-07 - TSH hyperlipidimia Result Comment: <200 mg/dL Desirable 200-240 mg/dL Borderline >240 mg/dL High Risk Performed By: #### L 500.4100 #### [facility] [address] [place], [address] Cholesterol in HDL [Mass/Vol] 47 mg/dL Normal [facility] Comment on above: Order Comment: Order Date: 07/27/23 Order Info: 0786-1 - CMP Order Date: 01/22/24 Order Info: 43111-0 - LIPID Comments: hyperlipidimia Order Info: 3015-07 - TSH hyperlipidimia Result Comment: The drugs N-Acetylcysteine and Metamizole may falsely depress this assay. Reference Range HDL <40 mg/dL Low HDL Cholesterol HDL >or= 60 mg/dL High HDL Cholesterol Performed By: #### L 500.4100 #### [facility] [address] [place], [address] Cholesterol in LDL [Mass/Vol] 258 mg/dL High 0-130 [facility] Comment on above: Order Comment: Order Date: 07/27/23 Order Info: 0786-1 - CMP Order Date: 01/22/24 Order Info: 50852-0 - LIPID Comments: hyperlipidimia Order Info: 3016-3 - TSH hyperlipidimia Performed By: #### L 500.4100 #### [facility] [address] [place], [address] Cholesterol in VLDL [Mass/Vol] 22 mg/dL Normal 5-40 [facility] Comment on above: Order Comment: Order Date: 07/27/23 Order Info: 0786-1 - CMP Order Date: 01/22/24 Order Info: 88140-1 - LIPID Comments: hyperlipidimia Order Info: 3016-3 - TSH hyperlipidimia Performed By: #### L 500.4100 #### [facility] [address] [place], [place], [address] Triglyceride [Mass/Vol] 109 mg/dL Normal [facility] Comment on above: Order Comment: Order Date: 07/27/23 Order Info: 0786-1 - CMP Order Date: 01/22/24 Order Info: 11077-5 - LIPID Comments: hyperlipidimia Order Info: 3016-3 - TSH hyperlipidimia Result Comment: The drugs N-Acetylcysteine and Metamizole may falsely depress this assay. Serum Triglycerides Reference Interval Normal <150 mg/dL Borderline high 150 - 199 mg/dL High 200 - 499 mg/dL Very High > or = 500 mg/dL Performed By: #### L 500.4100 #### [facility] [address] [place], [address] Thyroid Stim Hormone (TSH)on 02-01-2024 TSH 1.470 uIU/mL Normal 0.358-3.740 [facility] Comment on above: Order Comment: Order Date: 07/27/23 Order Info: 0786-1 - CMP Order Date: 01/22/24 Order Info: 92473-2 - LIPID Comments: hyperlipidimia Order Info: 3016-3 - TSH hyperlipidimia Performed By: #### L 500.4050, L501.9520 #### [facility] [address] [place], [address] Additional Injections: R elb ow jointon 11-02-2023 Raudel Deras DO 11/03/2023 10:57 AM Additional Injections: R elbow joint for lateral epicondylitis Informed Consent Consent Obtained: Verbal [place] Protocol A moment to CARE was completed. [...] assessed and interventions discussed. No implant(s) inserted. 11/02/2023 10:53 AM The procedure site was prepped in the usual sterile fashion. Medications: 10 mg triamcinolone acetonide 10 mg/mL Anesthetics: 1 mL BUPivacaine (PF) 0.5 % (5 mg/mL) Outcome: tolerated well, no immediate complications Post-injection instructions were reviewed with the patient and the patient voiced understanding of these instructions. SIGN OUT No specimen collected. All instruments, equipment, possible retained foreign bodies accounted for. Post-procedure follow-up management communicated and Plan of Care Visit completed when applicable [facility] CNOVon 11-02-2023 CNOV Office Visit (MANJEET) ---- MIKY CARLISLE ([id number]) 1970 M Date Time Provider Department 11/02/23 2:45 PM RAUDEL DERAS During your visit today, we recorded the following information about you: Raudel Deras DO 11/03/2023 10:57 AM Signed Follow Up Visit Chief Complaint Miky Carlisle is a 53 year old male who presents today for follow up office visit. Patient presents with: Right Elbow - Established Patient, Follow Up History of Present Illness PAIN EVALUATION 10/26/2023 1924 Pain Level: 7 Pain Location: Elbow-Right Description: Numbness;Radiating; Shooting Duration Amount of Time: 2 Duration Units: Minutes Frequency: Intermittent Intervention/Comfor t measure: Reposition;Pillow support;Positioning HPI: Miky Carlisle is a 53 year old male for a follow up visit discuss elbow ultrasound results. Pain history is noted as above. 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 Is there any overall improvement in your [...] Take 1 tablet by mouth every afternoon. oxyCODONE-acetamino phen (PERCOCET) 5-325 mg tablet Take 1 tablet by mouth every 6 hours as needed for pain. (Patient not taking: Reported on 07/28/2021) No current facility-administer ed medications for this visit. Physical Exam Vitals: [...] breath at rest Rheumatologic: Joint deformities: right lat epic pain US in chart Right Elbow Exam Tenderness The patient is experiencing tenderness in the lateral epicondyle. Range of Motion Extension: normal Flexion: normal Pronation: normal Supination: normal Muscle Strength Pronation: 5/5 Supination: 5/5 Other Erythema: absent Sensation: normal Pulse: present Comments: Med,uln,rad nerves intact Left Elbow Exam Left elbow exam is normal. Tenderness The patient is experiencing no tenderness. Range of Motion Extension: normal Flexion: normal Pronation: normal Supination: normal Muscle Strength Pronation: 5/5 Supination: 5/5 Other Erythema: absent Sensation: normal Pulse: present Assessment and Plan Radiographs: I have independently reviewed films and my findings are the same. and I have reviewed the images with the patient and family. Impression: Encounter Diagnosis ICD-10-CM 1. Lateral epicondylitis of right elbow M77.11 Today, in detail, through a thorough evaluation, [...] having continued pain to return. May get injec (more content not included)... Normal [facility] CNOVon 10-18-2023 CNOV Office Visit (NENMMN) ---- MIKY CARLISLE ([id number]) 1970 M Date Time Provider Department 10/18/23 2:45 PM LEONARD MCCOY NENMMN During your visit today, we recorded the following information about you: Leonard Mccoy MD 10/18/2023 3:40 PM Signed UN[employer]ERSAL PROTOCOL / SAFETY CHECKLIST Procedure to be Performed: neuromuscular ultrasound Sign In: A Moment of CARE was completed. Personnel directly involved with the procedure wore the appropriate PPE (Personal Protective Equipment). Patient/Surrogate Stated/Verified: PATIENT VERIFIED(optional for EMERGENT procedures): Patient name, Date of , Relevant allergies and The intended procedure Time Out Communication: Intended patient and procedure match the source documents. Consent documented and matches the intended procedure. Sign Out: SIGN OUT (optional for EMERGENT procedures): Post-procedure follow-up management communicated and Plan of Care Visit completed when applicable. Leonard Mccoy MD Allergies As of Date: 10/18/2023 (No Known Allergies) Date Reviewed: 04/07/2023 Reviewed by: Raudel Deras DO - Fully Assessed Primary Visit Diagnosis:Neuritis of right ulnar nerve [G56.21] Order(s):US NEUROMUSCULAR (POC) NEUROLOGY USE ONLY [[id number]] Order #: [id number]. #:[id number]: 1 Prescriptions as of 10/18/2023 - rosuvastatin (CRESTOR) 10 mg tablet Take 1 tablet by mouth every afternoon. - oxyCODONE-acetamino phen (PERCOCET) 5-325 mg tablet Take 1 tablet by mouth every 6 hours as needed for pain. 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] 04/29/2021 Difficult intubation [T88.4XXA] 04/29/2021 Obesity (BMI 35.0-39.9 without comorbidity) [E6*04/29/2021 Mass of left wrist [R22.32] 05/04/2021 05/04/2021 Tenosynovitis of left wrist [M65.9] 05/04/2021 05/04/2021 Encounter Status:Closed by LEONARD MCCOY on 10/18/23 Normal [facility] NEUROMUSCULAR (POC) NEURO LOGY USE ONLYon 10-18-2023 [facility] Radiology Study observation (narrative) [facility] CNPNon 08-24-2023 CNPN Telephone (ORMDNA) ---- MIKY CARLISLE ([id number]) 1970 M Date Time Provider Department 08/24/23 RAUDEL DERAS During your visit today, we recorded the following information about you: Lisa Miranda RN 08/24/2023 11:13 AM Signed Patient was ordered an MRI in March, insurance denied. He has different insurance and would like to try to have the test approved through new insurance. He is requesting a new order if possible. Anne-Marie Shah PA-C 08/25/2023 9:07 AM Signed It was a neuromuscular ultrasound that was ordered in March, new order placed. Please call patient and assist with scheduling. JENNIE Garner [place], PA-C 08/25/2023 9:07 AM Signed Addended by: ANNE-MARIE SHAH on: 08/25/2023 09:07 AM Modules accepted: Orders Marika Cornejo 08/25/2023 10:36 AM Signed Sent [place] [facility] Allergies As of Date: 08/24/2023 (No Known Allergies) Date Reviewed: 04/07/2023 Reviewed by: Raudel Deras DO - Fully Assessed Primary Visit Diagnosis:Ulnar neuritis, right [G56.21] Order(s):NEUROMUSCU LAR ULTRASOUND/NEUROLOG Y [[id number]] Order #: [id number] Prescriptions as of 08/25/2023 - rosuvastatin (CRESTOR) 10 mg tablet Take 1 tablet by mouth every afternoon. - oxyCODONE-acetamino phen (PERCOCET) 5-325 mg tablet Take 1 tablet by mouth every 6 hours as needed for pain. 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] 04/29/2021 Difficult intubation [T88.4XXA] 04/29/2021 Obesity (BMI 35.0-39.9 without comorbidity) [E6*04/29/2021 Mass of left wrist [R22.32] 05/04/2021 05/04/2021 Tenosynovitis of left wrist [M65.9] 05/04/2021 05/04/2021 Encounter Status:Closed by LISA MIRANDA on 08/24/23 [facility] [place] 08-23-2023 CNPN Telephone (BONGMDNA) ---- MIKY CARLISLE ([id number]) 1970 M Date Time Provider Department 08/23/23 RAUDEL DERAS During your visit today, we recorded the following information about you: Danii Puentes 08/23/2023 12:22 PM Signed Patient is calling in to ask if Dr. Watson can put in a new order for the ulnar ultrasound. Patient had to cancel it due some insurance issues and they let patient know they can finally reschedule it. An Paredes, MARK 08/23/2023 1:06 PM Signed Order will be faxed to dept to help schedule Allergies As of Date: 08/23/2023 (No Known Allergies) Date Reviewed: 04/07/2023 Reviewed by: Raudel Deras DO - Fully Assessed Reason for Visit: Orders [681] Appointment [186] Prescriptions as of 08/24/2023 - rosuvastatin (CRESTOR) 10 mg tablet Take 1 tablet by mouth every afternoon. - oxyCODONE-acetamino phen (PERCOCET) 5-325 mg tablet Take 1 tablet by mouth every 6 hours as needed for pain. 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.718] 04/29/2021 Difficult intubation [T88.4XXA] 04/29/2021 Obesity (BMI 35.0-39.9 without comorbidity) [E6*04/29/2021 Mass of left wrist [R22.32] 05/04/2021 05/04/2021 Tenosynovitis of left wrist [M65.9] 05/04/2021 05/04/2021 Encounter Status:Closed by DANII PUENTES on 08/24/23 Normal [facility] Basophil percentageOrdered B y: Leonides Galvez on 07-27-2023 Cholesterol [Mass/Vol] 319 mg/dL <200 [facility] Comment on above: <200 mg/dL Desirable 200-240 mg/dL Borderline >240 mg/dL High Risk Triglyceride [Mass/Vol] 67 mg/dL <199 [facility] Comment on above: The drugs N-Acetylcy steine and Metamizole may falsely depress this assay.Serum Triglycerides Reference Interval Normal <150 mg/dL Borderline high 150 - 199 mg/dL High 200 - 499 mg/dL Very High > or = 500 mg/dL Laboratory - Chemistry and C hemistry - challengeOrdered By: Leonides Galvez on 07-27-2023 Cholesterol in HDL [Mass/Vol] 57 mg/dL >40 [facility] Comment on above: The drugs N-Acetylcy steine and Metamizole may falsely depress this assay. Reference Range HDL <40 mg/dL Low HDL Cholesterol HDL >or= 60 mg/dL High HDL Cholesterol Cholesterol in LDL [Mass/Vol] 249 mg/dL 0-130 [facility] No Panel InformationOrdered By: Leonides Galvez on 07-27-2023 VLDL Cholesterol 13 mg/dL 5-40 [facility] Basophil percentageOrdered B y: Leonides Galvez on 04-19-2023 Bilirubin [Mass/Vol] 0.70 mg/dL 0.20-1.00 [facility] Comment on above: For patients on eltr ombopag therapy, use of Dimension Goodell TBIL is not recommended. Chloride [Moles/Vol] 106 mmol/L 98-107 [facility] Cholesterol [Mass/Vol] 273 mg/dL <200 [facility] Comment on above: <200 mg/dL Desirable 200-240 mg/dL Borderline >240 mg/dL High Risk Glucose [Mass/Vol] 101 mg/dL 74-106 [facility] Comment on above: Fasting Glucose resu lt from 100 to 125 mg/dL suggests IMPAIRED HOMEOSTASIS per A.D.A. criteria. Potassium [Moles/Vol] 4.2 mmol/L 3.5-5.1 [facility] Protein [Mass/Vol] 7.3 g/dL 6.4-8.2 [facility] Sodium [Moles/Vol] 140 mmol/L 136-145 [facility] Triglyceride [Mass/Vol] 78 mg/dL <199 [facility] Comment on above: The drugs N-Acetylcy steine and Metamizole may falsely depress this assay.Serum Triglycerides Reference Interval Normal <150 mg/dL Borderline high 150 - 199 mg/dL High 200 - 499 mg/dL Very High > or = 500 mg/dL Direct bilirubinOrdered By: Leonides Galvez on 04-19-2023 Bilirubin.direct [Mass/Vol] 0.14 mg/dL 0.00-0.30 [facility] Laboratory - Chemistry and C hemistry - challengeOrdered By: Leonides Galvez on 04-19-2023 ALP [Catalytic activity/Vol] 104 U/L 45-117 [facility] ALT [Catalytic activity/Vol] 62 U/L 16-61 [facility] CO2 [Moles/Vol] 29.0 mmol/L 21.0-32.0 [facility] Globulin (S) [Mass/Vol] 3.7 g/dL 2.2-4.2 [facility] Urea nitrogen/Creatinine [Mass ratio] 19.2 mg/mg 10-20 [facility] No Panel InformationOrdered By: Leonides Galvez on 04-19-2023 Estimated GFR (MDRD) Amer 125 mL/min >60 [facility] Comment on above: GFR Calc Estimated GFR (MDRD) Non-Af Amer 103 mL/min >60 [facility] Comment on above: Non- GFR Calc Prostate Specific Antigen Screen 1.93 ng/mL 0.00-4.00 [facility] Comment on above: This test was perfor med using the TPSA assay method for theKingnet chemistry system. Values obtained with differentassay methods cannot be used interchangably.When changing PSA assays in the course of monitoring apatient, additional sequential testing should be carriedout to confirm baseline values. Serum or plasma albumin haroldo urement (mass/volume)Ordered By: Leonides Galvez on 04-19-2023 Albumin [Mass/Vol] 3.6 g/dL 3.2-5.0 [facility] Serum or plasma calcium haroldo urement (mass/volume)Ordered By: Leonides Galvez on 04-19-2023 Calcium [Mass/Vol] 8.5 mg/dL 8.5-10.1 [facility] Serum or plasma cholesterol in HDL measurement (mass/volume)Ordered By: Leonides Galvez on 04-19-2023 Cholesterol in HDL [Mass/Vol] 59 mg/dL >40 [facility] Comment on above: The drugs N-Acetylcy steine and Metamizole may falsely depress this assay. Reference Range HDL <40 mg/dL Low HDL Cholesterol HDL >or= 60 mg/dL High HDL Cholesterol Serum or plasma cholesterol in VLDL measurement (mass/volume)Ordered By: Leonides Galvez on 04-19-2023 Cholesterol in VLDL [Mass/Vol] 16 mg/dL 5-40 [facility] Serum or plasma creatinine m easurement (mass/volume)Ordered By: Leonides Galvez on 04-19-2023 Creatinine [Mass/Vol] 0.83 mg/dL 0.70-1.30 [facility] Comment on above: The validity of the calculated GFR & GFRAA in patients over 70 years has not been determined. Clinical correlation is essential. Serum or plasma low density lipoprotein (LDL) cholesterol measurement (mass/volume)Ordered By: Leonides Galvez on 04-19-2023 Cholesterol in LDL [Mass/Vol] 198 mg/dL 0-130 [facility] Serum or plasma urea nitroge n measurement (mass/volume)Ordered By: Leonides Galvez on 04-19-2023 Urea nitrogen [Mass/Vol] 16 mg/dL 7-18 [facility] Thin prep Papanicolaou smear with manual screeningOrdered By: Leonides Galvez on 04-19-2023 Thin prep Papanicolaou smear with manual screening 35 U/L 15-37 [facility] Thin prep Papanicolaou smear with manual screening 5 5-15 [facility] XR Radius and Ulna - right A P and Lateralon 04-09-2023 IMPRESSION: Negative Composition Mixer: PSCB Transcribe Date/Time: Apr 09 2023 2:17P Dictated by : RJ STEPHEN MD This examination was interpreted and the report reviewed and electronically signed by: RJ STEPHEN MD on Apr 09 2023 2:18PM EST [facility] * * *Final Report* * * DATE OF EXAM: Apr 07 2023 9:24AM AQUILINO 5342 - XR FOREARM 2V AP/LAT RT / PROCEDURE REASON: [id number] * * * * Physician Interpretation * * * * PROCEDURE: Right forearm INDICATION: Pain .Numb TECHNIQUE: XR FOREARM 2V AP/LAT RT COMPARISON: None FINDINGS: No fractures or dislocations are seen. The bones, joint spaces and soft tissues are unremarkable. [facility] Provider, [facility] [place] - 04/09/2023 * * *Final Report* * * DATE OF EXAM: Apr 07 2023 9:24AM O 5342 - XR FOREARM 2V AP/LAT RT / PROCEDURE REASON: [id number] * * * * Physician Interpretation * * * * PROCEDURE: Right forearm INDICATION: Pain .Numb TECHNIQUE: XR FOREARM 2V AP/LAT RT COMPARISON: None FINDINGS: No fractures or dislocations are seen. The bones, joint spaces and soft tissues are unremarkable. IMPRESSION IMPRESSION: Negative Composition Mixer: PSCB Transcribe Date/Time: Apr 09 2023 2:17P Dictated by : RJ STEPHEN MD This examination was interpreted and the report reviewed and electronically signed by: RJ STEPHEN MD on Apr 09 2023 2:18PM EST [facility] XR Radius and Ulna - right A P and LateralOrdered By: [facility]cf Provider on 04-09-2023 [facility] XR FOREARM 2V AP/LAT RTon XR FOREARM 2V AP/LAT RT * * *Final Report* * * DATE OF EXAM: Apr 07 2023 9:24AM AQUILINO 5342 - XR FOREARM 2V AP/LAT RT / PROCEDURE REASON: [id number] * * * * Physician Interpretation * * * * PROCEDURE: Right forearm INDICATION: Pain .Numb TECHNIQUE: XR FOREARM 2V AP/LAT RT COMPARISON: None FINDINGS: No fractures or dislocations are seen. The bones, joint spaces and soft tissues are unremarkable. IMPRESSION: Negative Composition Mixer: PSCB Transcribe Date/Time: Apr 09 2023 2:17P Dictated by : RJ STEPHEN MD This examination was interpreted and the report reviewed and electronically signed by: RJ STEPHEN MD on Apr 09 2023 2:18PM EST [id number] Normal [facility] XR Radius and Ulna - right A P and Lateralon 04-07-2023 Radiology Study observation (narrative) [facility] Absolute lymphocyte counton 06-08-2022 Lymphocytes Auto (Unsp spec) [#/Vol] 0.33 10*3/uL 0.83-4.51 [facility] Work Phone: Basophil percentageon 2022 Basophils/100 WBC (Bld) 0.1 % 0-1 [facility] Work Phone: Bilirubin [Mass/Vol] 1.00 mg/dL 0.20-1.00 [facility] Work Phone: Comment on above: For patients on eltr ombopag therapy, use of Dimension Goodell TBIL is not recommended. Chloride [Moles/Vol] 108 mmol/L 98-107 [facility] Work Phone: Eosinophils/100 WBC (Bld) 0.4 % 0-5 [facility] Work Phone: Glucose [Mass/Vol] 131 mg/dL 74-106 [facility] Work Phone: Comment on above: Fasting Glucose resu lt greater than or equal to 126 mg/dL suggests DIABETES MELLITUS per A.D.A. criteria. Neutrophils (Bld) [#/Vol] 7.7 10*3/uL 2.0-7.7 [facility] Work Phone: Neutrophils/100 WBC (Bld) 90.3 % 47-70 [facility] Work Phone: Potassium [Moles/Vol] 4.2 mmol/L 3.5-5.1 [facility] Work Phone: Protein [Mass/Vol] 7.5 g/dL 6.4-8.2 [facility] Work Phone: Sodium [Moles/Vol] 137 mmol/L 136-145 [facility] Work Phone: WBC (Bld) [#/Vol] 8.5 10*3/uL 4.4-11.0 [facility] Work Phone: Blood erythrocytes count (nu mber/volume)on 06-08-2022 RBC (Bld) [#/Vol] 5.17 10*6/uL 4.6-6.2 [facility]: Blood hemoglobin measurement (mass/volume)on 06-08-2022 Hemoglobin (Bld) [Mass/Vol] 15.5 g/dL 13.0-16.5 [facility] Work Phone: Blood lymphocytes/100 leukoc yteson 06-08-2022 Lymphocytes/100 WBC (Bld) 3.9 % 19-41 [facility] Work Phone: Blood monocytes/100 leukocyt eson 06-08-2022 Monocytes/100 WBC (Bld) 4.9 % 0-10 [facility] Work Phone: Blood platelet mean volumeon 06-08-2022 Platelet mean volume (Bld) [Entitic vol] 9.2 fL 6.2-12.0 [facility] Work Phone: Determination of erythrocyte mean corpuscular volume (MCV)on 06-08-2022 MCV (RBC) [Entitic vol] 88.6 fL 80-94 [facility] Work Phone: Direct bilirubinon Bilirubin.direct [Mass/Vol] 0.22 mg/dL 0.00-0.30 [facility] Work Phone: Hematocrit Auto (Bld) [Volum e fraction]on 06-08-2022 Hematocrit (Bld) [Volume fraction] 45.8 % 40-54 [facility] Work Phone: Laboratory - Chemistry and C hemistry - challengeon 06-08-2022 ALP [Catalytic activity/Vol] 89 U/L 45-117 [facility] Work Phone: ALT [Catalytic activity/Vol] 63 U/L 16-61 [facility] Work Phone: CO2 [Moles/Vol] 23.0 mmol/L 21.0-32.0 [facility] Work Phone: Globulin (S) [Mass/Vol] 3.8 g/dL 2.2-4.2 [facility] Work Phone: Urea nitrogen/Creatinine [Mass ratio] 17.1 mg/mg 10-20 [facility] Work Phone: Laboratory - Hematology and Cell countson 06-08-2022 Erythrocyte distribution width (RBC) [Entitic vol] 40.3 fL 35.1-43.9 [facility] Work Phone: Erythrocyte distribution width (RBC) [Ratio] 12.3 % 11.6-14.6 [facility] Work Phone: Immature granulocytes/100 WBC (Bld) 0.400 % 0.0-0.9 [facility] Work Phone: Comment on above: IG% - Immature Granu locytes (promyelocytes, myelocytes and metamyelocytes) > 1% indicates that a LEFT SHIFT is Present. MCH (RBC) [Entitic mass] 30.0 pg 27.0-32.0 [facility] Work Phone: Nucleated RBC/100 WBC (Bld) [Ratio] 0.2 % 0-5 [facility] Work Phone: MCHC Auto (RBC) [Mass/Vol]on 06-08-2022 MCHC (RBC) [Mass/Vol] 33.8 g/dL 32-36 [facility] Work Phone: No Panel Informationon 06-08 Estimated Creatinine Clearance Calc 113.62 ml/min [facility] Work Phone: Estimated GFR (MDRD) Amer 110 mL/min >60 [facility] Work Phone: Comment on above: GFR Calc Estimated GFR (MDRD) Non-Af Amer 91 mL/min >60 [facility] Work Phone: Comment on above: Non- GFR Calc Platelets bldon 06-08-2022 Platelets (Bld) [#/Vol] 247 10*3/uL 150-450 [facility] Work Phone: Serum or plasma albumin haroldo urement (mass/volume)on 06-08-2022 Albumin [Mass/Vol] 3.7 g/dL 3.2-5.0 [facility] Work Phone: Serum or plasma calcium haroldo urement (mass/volume)on 06-08-2022 Calcium [Mass/Vol] 8.7 mg/dL 8.5-10.1 [facility] Work Phone: Serum or plasma creatinine m easurement (mass/volume)on 06-08-2022 Creatinine [Mass/Vol] 0.94 mg/dL 0.70-1.30 [facility] Work Phone: Comment on above: The validity of the calculated GFR & GFRAA in patients over 70 years has not been determined. Clinical correlation is essential. Serum or plasma urea nitroge n measurement (mass/volume)on 06-08-2022 Urea nitrogen [Mass/Vol] 16 mg/dL 7-18 [facility] Work Phone: Thin prep Papanicolaou smear with manual screeningon 06-08-2022 Thin prep Papanicolaou smear with manual screening 29 U/L 15-37 [facility] Work Phone: Thin prep Papanicolaou smear with manual screening 6 5-15 [facility] Work Phone: CT CARDIAC SCORINGon 022 CT CARDIAC SCORING Patient Name: MIKY CARLISLE STUDY: CT CARDIAC SCORING; 09/21/2021 3:20 pm INDICATION: Hyperlipidemia, unspecified. COMPARISON: None. ACCESSION NUMBER(S): [id number] ORDERING CLINICIAN: KATLYN GALVEZ TECHNIQUE: Using prospective ECG gating, CT scan of the coronary arteries was performed without intravenous contrast. Coronary calcium scoring was performed according to the method of Agatston. FINDINGS: The score and distribution of calcium in the coronary arteries is as follows: LM: 0. LAD: 0. LCx: 0. RCA: 2.19. Total: 2.19. The visualized segments of the lungs demonstrate mild areas of atelectasis and mild nonspecific ground-glass opacities in the lower lobes. Small calcified granuloma in the right lower lobe. 2 mm subpleural nodule in the right middle lobe, image 18 of 51. 2 mm subpleural nodule in the right lower lobe, image 37. These are of doubtful clinical significance in a low risk patient. In a high risk patient, a 12 month follow-up CT can be offered. The visualized mid/lower ascending thoracic aorta measures 3.2 cm in diameter. The heart is mildly enlarged. No pericardial effusion is present. No gross evidence of mediastinal or hilar lymphadenopathy is identified. There are small calcified right hilar and mediastinal lymph nodes. The visualized subdiaphragmatic structures appear grossly intact. IMPRESSION: 1. Coronary artery calcium score of 2.19*. *Coronary artery calcium scoring may be helpful in predicting the risk for future coronary heart disease events. According to the [employer] Clinical Expert Consensus Task Force, such testing provides important prognostic information in patients with more than one coronary heart disease risk factor. The coronary artery calcium score correlates with the annual risk of a non-fatal myocardial infarction or coronary heart disease . Coronary artery score Annual Risk 0-99 0.4% 100-399 1.3% >400 2.4% These three breakpoints correspond to lower, intermediate and high risk states for future coronary events. Such information should be used, along with appropriate clinical judgment, to make decisions regarding the intensity of risk factor management strategies to treat blood lipids and to modify other non-lipid coronary risk factors. Reference: Pelham P et al. Circulation. 2007; 115:402-426 Electronically signed by: BLAZE VARGHESE MD [facility] Office Visiton 04-27-2017 Documentation of current medications (procedure) Done Invalid Interpretation Code [facility] Work Phone: Tobacco use [facility] Never smoker Invalid Interpretation Code [facility] Work Phone: Office Visiton 02-23-2017 Documentation of current medications (procedure) Done Invalid Interpretation Code [facility] Work Phone: Tobacco use [facility] Never smoker Invalid Interpretation Code [facility] Work Phone: Office Visiton 03-19-2013 Documentation of current medications (procedure) T Invalid Interpretation Code [facility] Work Phone: Additional Injections: R elb ow joint [facility] Vital Signs Date Time Vital Sign Value Performing Clinician Facility 06-29-2023 09:47-0500 Body temperature 97.7 [degF] Dr. Leonides Galvez Work Phone: [facility] 06-29-2023 09:47-0500 Diastolic blood pressure 76 mm[Hg] Dr. Leonides Galvez Work Phone: [facility] 06-29-2023 09:47-0500 Heart rate 64 /min Dr. Leonides Galvez Work Phone: [facility] 06-29-2023 09:47-0500 Respiratory rate 16 /min Dr. Leonides Galvez Work Phone: [facility] 06-29-2023 09:47-0500 SaO2% (BldA) [Mass fraction] 94 % Dr. Leonides Galvez Work Phone: [facility] 06-29-2023 09:47-0500 Systolic blood pressure 107 mm[Hg] Dr. Leonides Galvez Work Phone: [facility] 06-29-2023 08:23-0500 Body height 182.[address] Leonides Galvez Work Phone: [facility] 06-29-2023 08:23-0500 Body mass index (BMI) [Ratio] 40.5 kg/m2 Dr. Leonides Galvez Work Phone: [facility] 06-29-2023 08:23-0500 Body weight 135.[address] Leonides Galvez Work Phone: [facility] 04-14-2023 13:03-0500 Body height 187.[address] Leonides Galvez Work Phone: [facility] 04-14-2023 13:03-0500 Body mass index (BMI) [Ratio] 36.6 kg/m2 Dr. Leonides Galvez Work Phone: [facility] 04-14-2023 13:03-0500 Body weight 129.[address] Leonides Galvez Work Phone: [facility] 06-08-2022 13:16-0500 Diastolic blood pressure 94 mm[Hg] [facility] Work Phone: 06-08-2022 13:16-0500 Heart rate 80 /min [facility] Work Phone: 06-08-2022 13:16-0500 Respiratory rate 16 /min [facility] Work Phone: 06-08-2022 13:16-0500 SaO2% (BldA) [Mass fraction] 95 % [facility] Work Phone: 06-08-2022 13:16-0500 Systolic blood pressure 127 mm[Hg] [facility] Work Phone: 06-08-2022 11:29-0500 Body height 190.5 cm [facility] Work Phone: 06-08-2022 11:29-0500 Body mass index (BMI) [Ratio] 35.6 kg/m2 [facility] Work Phone: 06-08-2022 11:29-0500 Body temperature 97.3 [degF] [facility] Work Phone: 06-08-2022 11:29-0500 Body weight 129.27 kg [facility] Work Phone: 05-15-2014 13:24-0500 BMI (Body Mass Index) 30.62 kg/m2 [facility] Work Phone: 05-15-2014 13:24-0500 Weight 111.13 kg [facility] Work Phone: 03-19-2013 11:40-0400 BP Diastolic 65 mm[Hg] [facility] Work Phone: 03-19-2013 11:40-0400 BP Systolic 108 mm[Hg] [facility] Work Phone: 09-11-2012 15:22-0400 Pulse (Heart Rate) 74 /min [facility] Work Phone: 08-30-2012 09:27-[address] [facility] Work Phone: Encounters Encounter Date Encounter Type Care Provider Facility Start: 08-26-2024 Encounter for genera l adult medical examination without abnormal findings Katlyn Galvez [facility] Start: 08-20-2024 End: 08-20-[address] Katlyn Galvez MD Work Phone: [facility] Work Phone: Start: 08-20-2024 End: 08-20-[address] Katlyn Galvez MD -Laboratory, [place] Work Phone: Start: 08-20-2024 End: 08-20-2024 ambulatory Katlyn Galvez Facility:[facility] Start: 08-09-2024 End: 08-09-2024 ambulatory [place] Naomie ANGELPLAINFIELD Facility:[facility] Start: 08-09-2024 End: 08-09-2024 Patient encounter procedure Raudel Deras DO Work Phone: Orthopaedics Comment on above: Lateral epicondyliti s of right elbow (Primary Dx) Start: 04-09-2024 End: 04-09-2024 ambulatory Katlyn Galvez Facility:[facility] Start: 02-01-2024 End: 02-01-2024 ambulatory [facility] Facility:[facility] Start: 11-02-2023 End: 11-02-2023 ambulatory [facility] Facility:[facility] Start: 11-02-2023 End: 11-02-2023 Patient encounter procedure Raudel Deras DO Work Phone: Orthopaedics Comment on above: Lateral epicondyliti s of right elbow (Primary Dx) Start: 10-18-2023 End: 10-18-2023 ambulatory LEONARD MCOCY Facility:[facility] Start: 10-18-2023 End: 10-18-2023 Patient encounter procedure Leonard Mccoy MD Work Phone: Neurology Comment on above: 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 Leonides Galvez Work Phone: [facility] Work Phone: Start: 07-27-2023 End: 07-27-[address] Leonides Galvez Work Phone: [facility] Work Phone: Start: 06-29-2023 Non-patient / Non-visit Dr. Kathia Galvez Work Phone: [facility] Start: 06-29-2023 End: 02-01-2024 Admission to same day surgery center Dr. Leonides Galvez Work Phone: [facility] Work Phone: Start: 04-19-2023 End: 04-19-[address] Leonides Galvez Work Phone: [facility] Work Phone: Start: 04-19-2023 End: 04-19-[address] Leonides Galvez Work Phone: [facility] [place] Work Phone: Start: 04-14-2023 Non-patient / Non-visit Dr. Kathia Galvez Work Phone: [facility] Work Phone: Start: 04-07-2023 ambulatory KATLYN Lipscomb cility:[facility] Start: 04-07-2023 End: 04-07-2023 Patient encounter procedure Raudel Deras DO Work Phone: Orthopaedics Comment on above: Ulnar neuritis, righ t (Primary Dx); Lateral epicondylitis of right elbow Start: 04-07-2023 End: 04-07-2023 Subsequent hospital visit by physician Radio Sharma [facility] Work Phone: Radiology Comment on above: Pain [R52] Start: 04-06-2023 Telephone encounter Raudel Deras DO Work Phone: Orthopaedics Comment on above: Appointment Change Start: 06-08-2022 End: 06-08-2022 Emergency department patient visit [facility] Procedures Date Procedure Procedure Detail Performing Clinician Start: 08-09-2024 Injection single ten don origin/insertion Raudel Deras DO Work Phone: Start: 11-02-2023 Injection single ten don origin/insertion Raudel Deras DO Work Phone: Start: 10-18-2023 Us compl joint r-t w /image documentation Leonard Mccoy MD Work Phone: Start: 06-29-2023 Carlitos Galvez Work Phone: Start: 04-07-2023 Injection single ten don origin/insertion Raudel Deras DO Work Phone: Start: 04-07-2023 Radex forearm 2 views A philip Deras DO Work Phone: Start: 06-08-2022 CT of abdomen and pe lvis without contrast Plan of Treatment Date Care Activity Detail Author Start: 09-29-2031 Urine microalbumin profile DTaP,Tdap,Td Vaccine (2 - Td or Tdap) [facility] Start: 01-28-2024 Covid-19 Vaccine () Covid-19 Vaccine () [facility] Start: 01-28-2024 Covid-19 Vaccine () Covid-19 Vaccine () [facility] Start: 01-28-2024 Influenza vaccination C [facility] Start: 11-02-2023 End: 11-02-2023 Patient encounter procedure 11/02/2023 2:45 PM EDT Office Visit Orthopaedics [address] [place], [place] [id number] Raudel Deras DO [address] [place] [address] Elbow/Forearm pain Orthopaedics Comment on above: Elbow/Forearm pain Start: 06-29-2023 [place] [facility] Start: 05-29-2023 Behavioral Health Screening Behavioral Health Screening [facility] Start: 01-27-2023 Covid-19 Vaccine () Covid-19 Vaccine () [facility] Start: 01-27-2023 Influenza vaccination Influenza Vacc ine (#1) [facility] Start: 2022 Pneumococcal Vaccine : 50+ (1 of 1 - PCV) Pneumococcal Vaccine: 50+ (1 of 1 - PCV) [facility] Start: 2022 Shingrix Vaccine (1 of 2) Shingrix Vaccine (1 of 2) [facility] Start: 05-29-2022 Depression Assessment Depression Ass essment [facility] Start: 2017 Cologuard (FIT-DNA) Cologuard (FIT-D NA) [facility] Start: 2017 Colonoscopy Colonoscopy [facility] Start: 2017 Colorectal Cancer Screening Colorectal Cancer Screening [facility] Start: [address] Colonography [facility] Start: 2017 Diabetes Screening Diabetes Screenin g [facility] Start: 2017 Fecal Occult Blood Fecal Occult Bloo d [facility] Start: 2017 Screening for malign ant neoplasm of colon [facility] Start: 2017 Sigmoidoscopy Sigmoidoscopy [facility] Start: 04-27-2017 End: 04-27-2017 Mri any jt lower extrem w/o contrast matrl MRI Joint Lower Extremity [facility] Work Phone: Start: 04-27-2017 End: 04-27-2017 Appointment Appointment [facility] Work Phone: Start: 03-01-2017 End: 03-01-2017 Physical Therapy General Physical Therapy [facility], [address] [place] [address], [id number] [facility] Work Phone: Start: 02-23-2017 End: 02-23-2017 Radiologic exam knee complete 4/more views X-Ray, Knee [facility] Work Phone: Start: 05-15-2014 End: 05-15-2014 Radex hand minimum 3 views X-Ray, Hand [facility] Work Phone: Start: 08-03-2007 Lipid 1996 panel - Serum or Plasma Lipid Screening [facility] Start: 08-03-2007 Lipid panel Lipid Screening [facility] Start: 08-03-1991 Hepatitis B Vaccine (1 of 3 - 19+ 3-dose series) Hepatitis B Vaccine (1 of 3 - 19+ 3-dose series) [facility] Start: 1990 Anxiety Screening Anxiety Screening [facility] Start: 1990 Depression Screening Depression Scre ening [facility] Start: 1990 Hepatitis C Screening Hepatitis C [facility] Start: 1990 Hepatitis C screening Hepatitis C [facility] Start: 1990 HIV Screening HIV Screening [facility] Start: 1990 HIV screening HIV Screening [facility] Start: 1972 Hepatitis B Vaccine (1 of 3 - 3-dose series) Hepatitis B Vaccine (1 of 3 - 3-dose series) [facility] Colonoscopy [facility] NEUROMUSCULAR ULTRASOUND/NEUROLOGY NEUROMUSCULAR ULTRASOUND/NEUROLOGY Procedures Routine Ulnar neuritis, right Ordered: 04/07/2023 [facility] Work Phone: Comment on above: Ordered: 04/07/2023 Patient Education ED Abdominal P ain Unkn Cause Male... [facility] Work Phone: Patient referral [facility] Phone: [facility] Payers Date Payer Category Payer Self-pay [id number] 2023 Private Health Insurance [id number] 2020 Private Health Insurance [id number] 2020 Private Health Insurance [id number] [address] [facility] [id number] Unknown [id number] Unknown [id number] Unknown [id number] Social History Date Type Detail Facility Tobacco smoking stat us NDIS Unknown if ever smoked [facility] Work Phone: Start: 1970 Sex Assigned At Male [facility] Start: 06-08-2022 End: 06-27-2023 Tobacco smoking status NHIS Unknown if ever smoked [facility] Start: 04-07-2023 End: 06-27-2023 Tobacco smoking status NHIS Never smoked tobacco [facility] Start: 05-07-2016 End: 04-07-2023 Tobacco use and exposure Smokeless tobacco non-user [facility] Start: 04-07-2023 End: 08-09-2024 Alcohol intake Current drinker of alcohol (finding) [facility] Start: 04-07-2023 End: 2024 History of Social function [facility] Start: 04-07-2023 End: 2024 Tobacco use panel [facility] National Score (1-100), lower number is lower risk 72 [facility] Start: 04-29-2021 Alcohol Comment [facility] Start: 1970 Sex Assigned At Not on file [facility] Start: 08-26-2024 Sex Male (finding) [facility] Medical Equipment Procedure Code Equipment Code Equipment Origin al Text Equipment Identifier Dates Arthroscopy, knee NEEDLE REV CRV DEL SYS FDA Start: 03-21-2018 Arthroscopy, knee NEEDLE REV CRV DEL SYS FDA Start: 03-21-2018 Arthroscopy, knee NEEDLE REV CRV DEL SYS FDA Start: 03-21-2018 Arthroscopy, knee NEEDLE REV CRV DEL SYS FDA Start: 03-21-2018 Arthroscopy, knee NEEDLE REV CRV DEL SYS FDA Start: 03-21-2018 Arthroscopy, knee NEEDLE REV CRV DEL SYS FDA Start: 03-21-2018 Arthroscopy, knee NEEDLE REV CRV DEL SYS FDA Start: 03-21-2018 Arthroscopy, knee NEEDLE REV CRV DEL SYS FDA Start: 03-21-2018 Arthroscopy, knee NEEDLE REV CRV DEL SYS FDA Start: 03-21-2018 Arthroscopy, knee NEEDLE REV CRV DEL SYS FDA Start: 03-21-2018 Arthroscopy, knee NEEDLE REV CRV DEL SYS FDA Start: 03-21-2018 Arthroscopy, knee NEEDLE REV CRV DEL SYS FDA Start: 03-21-2018 Arthroscopy, knee NEEDLE REV CRV DEL SYS FDA Start: 03-21-2018 Arthroscopy, knee NEEDLE REV CRV DEL SYS FDA Start: 03-21-2018 Arthroscopy, knee NEEDLE REV CRV DEL SYS FDA Start: 03-21-2018 Goals Date Patient Goal Desired Activity /State Mental Status Date Assessment Result Facility 06-29-2023 Cognitive function Voice/Name [facility] Work Phone: Clinical Notes 05-04-2021 to 08-09-2024 Raudel Deras DO - 08/09/2024 10:55 AM Raudel Hubbard, - 11/02/2023 2:44 PM Leonard Gong MD - 10/18/2023 3:15 PM Raudel Hubbard DO - 04/07/2023 9:35 AM EST Note Date & Type Note Facility 08-09-2024 Note HNO ID: [id number] Author: RAUDEL DERAS DO Service: ? Author Type: Physician Type: Progress Notes Filed: 08/09/2024 14:18 Note Text: Follow Up Visit Chief Complaint Miky Carlisle is a 54 year old male who presents today for follow up office visit. Patient presents with: Right Elbow - Pain, Follow Up, Injections History of Present Illness PAIN EVALUATION 2024 1350 Pain Level: 4 Description: Radiating;Shooting Duration Units: Minutes Frequency: Intermittent Intervention/Comfort measure: Medication;Reposition Additional Injections: R elbow joint for lateral epicondylitis 08/09/2024 2:17 PM The procedure site was prepped in the usual sterile fashion. Medications: 10 mg triamcinolone acetonide 10 mg/mL Anesthetics: 1 mL ROPivacaine (PF) 5 mg/mL (0.5 %); 1 mL BUPivacaine (PF) 0.5 % (5 mg/mL) Outcome: tolerated well, no immediate complications Post-injection instructions were reviewed with the patient and the patient voiced understanding of these instructions. Informed Consent Consent Obtained: Verbal [place] Protocol A moment to CARE was completed. SIGN IN Personnel directly involved with the procedure wore the appropriate PPE. Special Equipment: N/A Patient/Surrogate Stated/Verified: Patient name, Date of , Relevant allergies and Intended procedure TIME OUT Relevant labs, photos, and/or imaging studies have been reviewed. Consent documented and matches the intended procedure. No correct side/site applicable for marking and visibility. Medications required for procedure verified. Fire risk assessed and interventions discussed. No implant(s) inserted. SIGN OUT No specimen collected. All instruments, equipment, possible retained foreign bodies accounted for. HPI: Miky Carlisle is a 54 year old male for a follow up visit right lateral elbow pain. Patient was last seen in October of 2023 and received a cortisone injection at that visit. It has given him moderate relief until April of 2024. He is here today for another cortisone injection. Pain history is noted as above. Is there any overall improvement in your condition? Yes, with injection Any new injury, since being seen last: [...] rest Rheumatologic: Joint deformities: right elbow pain Ortho Exam Assessment and Plan Radiographs: No imaging to review. Impression: Encounter Diagnosis ICD-10-CM 1. Lateral epicondylitis of right elbow M77.11 Additional Injections: R elbow joint Today, in detail, through a thorough evaluation, [...] current meds Watch sugars/decrease carbs Call if (more content not included)... [facility] 08-09-2024 History of Presen t illness Narrative Associated Order(s): Additional Injections: R elbow joint Post-Procedure Diagnose(s): Lateral epicondylitis of right elbow Images from the original note were not included. Follow Up Visit Chief Complaint Miky Carlisle is a 54 year old male who presents today for follow up office visit. Patient presents with: Right Elbow - Pain, Follow Up, Injections History of Present Illness PAIN EVALUATION 2024 1350 Pain Level: 4 Description: Radiating;Shooting Duration Units: Minutes Frequency: Intermittent Intervention/Comfort measure: Medication;Reposition Additional Injections: R elbow joint for lateral epicondylitis 08/09/2024 2:17 PM The procedure site was prepped in the usual sterile fashion. Medications: 10 mg triamcinolone acetonide 10 mg/mL Anesthetics: 1 mL ROPivacaine (PF) 5 mg/mL (0.5 %); 1 mL BUPivacaine (PF) 0.5 % (5 mg/mL) Outcome: tolerated well, no immediate complications Post-injection instructions were reviewed with the patient and the patient voiced understanding of these instructions. Informed Consent Consent Obtained: Verbal [place] Protocol A moment to CARE was completed. SIGN IN Personnel directly involved with the procedure wore the appropriate PPE. Special Equipment: N/A Patient/Surrogate Stated/Verified: Patient name, Date of , Relevant allergies and Intended procedure TIME OUT Relevant labs, photos, and/or imaging studies have been reviewed. Consent documented and matches the intended procedure. No correct side/site applicable for marking and visibility. Medications required for procedure verified. Fire risk assessed and interventions discussed. No implant(s) inserted. SIGN OUT No specimen collected. All instruments, equipment, possible retained foreign bodies accounted for. HPI: Miky Carlisle is a 54 year old male for a follow up visit right lateral elbow pain. Patient was last seen in October of 2023 and received a cortisone injection at that visit. It has given him moderate relief until April of 2024. He is here today for another cortisone injection. Pain history is noted as above. Is there any overall improvement in your condition? Yes, with injection Any new injury, since being seen last: [...] rest Rheumatologic: Joint deformities: right elbow pain Ortho Exam Assessment and Plan Radiographs: No imaging to review. Impression: Encounter Diagnosis ICD-10-CM 1. Lateral epicondylitis of right elbow M77.11 Additional Injections: R elbow joint Today, in detail, through a thorough evaluation, [...] return. May get injection every 3 months Raudel Deras D.O. M.P.H. documented in this encounter [facility] 11-02-2023 Note HNO ID: [id number] Author: RAUDEL DERAS DO Service: ? Author Type: Physician Type: Progress Notes Filed: 11/03/2023 10:57 Note Text: Follow Up Visit Chief Complaint Miky Carlisle is a 53 year old male who presents today for follow up office visit. Patient presents with: Right Elbow - Established Patient, Follow Up History of Present Illness PAIN EVALUATION 10/26/2023 1924 Pain Level: 7 Pain Location: Elbow-Right Description: Numbness;Radiating;Shooting Duration Amount of Time: 2 Duration Units: Minutes Frequency: Intermittent Intervention/Comfort measure: Reposition;Pillow support;Positioning HPI: Miky Carlisle is a 53 year old male for a follow up visit discuss elbow ultrasound results. Pain history is noted as above. 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 Is there any overall improvement in your [...] breath at rest Rheumatologic: Joint deformities: right lat epic pain US in chart Right Elbow Exam Tenderness The patient is experiencing tenderness in the lateral epicondyle. Range of Motion Extension: normal Flexion: normal Pronation: normal Supination: normal Muscle Strength Pronation: 5/5 Supination: 5/5 Other Erythema: absent Sensation: normal Pulse: present Comments: Med,uln,rad nerves intact Left Elbow Exam Left elbow exam is normal. Tenderness The patient is experiencing no tenderness. Range of Motion Extension: normal Flexion: normal Pronation: normal Supination: normal Muscle Strength Pronation: 5/5 Supination: 5/5 Other Erythema: absent Sensation: normal Pulse: present Assessment and Plan Radiographs: I have independently reviewed films and my findings are the same. and I have reviewed the images with the patient and family. Impression: Encounter Diagnosis ICD-10-CM 1. Lateral epicondylitis of right elbow M77.11 Today, in detail, through a thorough evaluation, [...] return. May get injection every 3 months Additional Injections: R elbow joint for lateral epicondylitis Informed Consent Consent Obtained: Verbal [place] Protocol A moment to CARE was completed. SIGN IN Perso (more content not included)... [facility] 11-02-2023 History of Presen t illness Narrative Associated Order(s): Additional Injections: R elbow joint Post-Procedure Diagnose(s): Lateral epicondylitis of right elbow Images from the original note were not included. Follow Up Visit Chief Complaint Miky Carlisle is a 53 year old male who presents today for follow up office visit. Patient presents with: Right Elbow - Established Patient, Follow Up History of Present Illness PAIN EVALUATION 10/26/20231923 Pain Level: 7 Pain Location: Elbow-Right Description: Numbness;Radiating;Shooting Duration Amount of Time: 2 Duration Units: Minutes Frequency: Intermittent Intervention/Comfort measure: Reposition;Pillow support;Positioning HPI: Miky Carlisle is a 53 year old male for a follow up visit discuss elbow ultrasound results. Pain history is noted as above. 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 Is there any overall improvement in your [...] breath at rest Rheumatologic: Joint deformities: right lat epic pain US in chart Right Elbow Exam Tenderness The patient is experiencing tenderness in the lateral epicondyle. Range of Motion Extension: normal Flexion: normal Pronation: normal Supination: normal Muscle Strength Pronation: 5/5 Supination: 5/5 Other Erythema: absent Sensation: normal Pulse: present Comments: Med,uln,rad nerves intact Left Elbow Exam Left elbow exam is normal. Tenderness The patient is experiencing no tenderness. Range of Motion Extension: normal Flexion: normal Pronation: normal Supination: normal Muscle Strength Pronation: 5/5 Supination: 5/5 Other Erythema: absent Sensation: normal Pulse: present Assessment and Plan Radiographs: I have independently reviewed films and my findings are the same. and I have reviewed the images with the patient and family. Impression: Encounter Diagnosis ICD-10-CM 1. Lateral epicondylitis of right elbow M77.11 Today, in detail, through a thorough evaluation, [...] return. May get injection every 3 months Additional Injections: R elbow joint for lateral epicondylitis Informed Consent Consent Obtained: Verbal [place] Protocol A moment to CARE was completed. [...] assessed and interventions discussed. No implant(s) inserted. 11/02/2023 10:53 AM The procedure site was prepped in the usual sterile fashion. Medications: 10 mg triamcinolone acetonide 10 mg/mL Anesthetics: 1 mL BUPivacaine (PF) 0.5 % (5 mg/mL) Outcome: tolerated well, no immediate complications Post-injection instructions were reviewed with the patient and the patient voiced understanding of these instructions. SIGN OUT No specimen collected. All instruments, equipment, possible retained foreign bodies accounted for. Post-procedure follow-up management communicated and Plan of Care Visit completed when applicable Raudel Deras D.O. M.P.HZuleika documented in this encounter [facility] 10-18-2023 Note HNO ID: [id number] Author: LEONARD MCCOY MD Service: ? Author Type: Physician Type: Progress Notes Filed: 10/18/2023 15:40 Note Text: UNIVERSAL PROTOCOL / SAFETY CHECKLIST Procedure to be Performed: neuromuscular ultrasound Sign In: A Moment of CARE was completed. Personnel directly involved with the procedure wore the appropriate PPE (Personal Protective Equipment). Patient/Surrogate Stated/Verified: PATIENT VERIFIED(optional for EMERGENT procedures): Patient name, Date of , Relevant allergies and The intended procedure Time Out Communication: Intended patient and procedure match the source documents. Consent documented and matches the intended procedure. Sign Out: SIGN OUT (optional for EMERGENT procedures): Post-procedure follow-up management communicated and Plan of Care Visit completed when applicable. Leonard Mccoy MD [facility] 10-18-2023 History of Presen t illness Narrative UNIVERSAL PROTOCOL / SAFETY CHECKLIST Procedure to be Performed: neuromuscular ultrasound Sign In: A Moment of CARE was completed. Personnel directly involved with the procedure wore the appropriate PPE (Personal Protective Equipment). Patient/Surrogate Stated/Verified: PATIENT VERIFIED(optional for EMERGENT procedures): Patient name, Date of , Relevant allergies and The intended procedure Time Out Communication: Intended patient and procedure match the source documents. Consent documented and matches the intended procedure. Sign Out: SIGN OUT (optional for EMERGENT procedures): Post-procedure follow-up management communicated and Plan of Care Visit completed when applicable. Leonard Mccoy MD documented in this encounter [facility] 04-07-2023 Note HNO ID: [id number] Author: Marika Martinez RT(R) Service: Radiology Author Type: Technologist Type: Progress Notes Filed: 04/07/2023 9:26 AM Note Text: Radiology Service Progress Note PATIENT NAME: Miky Carlisle DATE OF SERVICE: April 07, 2023 [...] RT Verito(R) April 07, 2023 9:25 AM [facility] 04-07-2023 History of Presen t illness Narrative Associated Order(s): Additional Injections: R elbow joint Post-Procedure Diagnose(s): Lateral epicondylitis of right elbow; Ulnar neuritis, right Images from the original note were not included. Additional Injections: R elbow joint for lateral epicondylitis (Not the joint) Informed Consent Consent Obtained: Verbal [place] Protocol A moment to CARE was completed. [...] accounted for. Follow Up Visit Chief Complaint Miky Carlisle is a 52 year old male who presents today for follow up office visit. Patient presents with: Right Elbow - Established Patient, Pain History of Present Illness PAIN EVALUATION 04/07/2023 0931 Pain Level: 0 increases with activity Pain Location: Elbow-Right Description: Sore;Aching;Tingling Duration Amount of Time: 5 Duration Units: Months Frequency: Intermittent Intervention/Comfort measure: -- tennis ball, ice, ibuprofen HPI: Miky Carlisle is a 52 year old male [...] neuritis, right G56.21 NEUROMUSCULAR ULTRASOUND/NEUROLOGY CONSULT TO [employer] 2. Lateral epicondylitis of right elbow M77.11 CONSULT TO [employer] Today, in detail, through a thorough evaluation, [...] Ergonomic changes to work if possible Raudel SanchezPZuleikaHZuleika documented in this encounter [facility] 04-07-2023 History of Presen t illness Narrative Radiology Service Progress Note PATIENT NAME: Miky Carlisle DATE OF SERVICE: April 07, 2023 [...] IV DATA: Not applicable SIGNED BY: RT Verito(Aide) April 07, 2023 9:25 AM documented in this encounter [facility] 04-06-2023 Miscellaneous Notes Left VM/ sent mychart informing patient appointment was changed from 10:00 to 9:30 due to provider going into surgery tomorrow. Asked pt to call back to confirm documented in this encounter [facility] 05-04-2021 History of Past i llness Narrative Problem Noted Date Diagnosed Date Resolved Date Mass of left wrist 05/04/2021 Tenosynovitis of left wrist 05/04/2021 05/04/2021 documented as of this encounter (statuses as of 04/07/2023) [facility]12-[facility]21 History of Past illness Narrative* Problem Noted Date Diagnosed Date Resolved Date Mass of left wrist 05/04/2021 1 Tenosynovitis of left wrist 05/04/2021 05/04/2021 documented as of this encounter (statuses as of 04/19/2023) [facility] noteNo assessment information [facility] Work Phone: Evaluation note* Diagnosis Ulnar neuritis, right- Primary Lateral epicondylitis of right elbow Lateral epicondylitis of elbow documented in this encounter [facility] note* Diagnosis Onset Date Resolution Status Encounter for screening for malignant neoplasm of colo n acute [facility] Work Phone: evaluation note* Diagnosis Neuritis of right ulnar nerve- Primary documented in this encounter [facility] note* Diagnosis Lateral epicondylitis of right elbow- Primary Lateral epicondylitis of elbow documented in this encounter [facility] note* Diagnosis Preop examination- Primary Preoperative examination, unspecified Mass of right wrist History of DVT of lower extremity Personal history of venous thrombosis and embolism Hard to intubate, initial encounter Obesity (BMI 35.0-39.9 without comorbidity) Obesity, unspecified Pain Generalized pain documented in this encounter [facility] note* Diagnosis Preop examination- Primary Preoperative examination, unspecified Mass of right wrist History of DVT of lower extremity Personal history of venous thrombosis and embolism Hard to intubate, initial encounter Obesity (BMI 35.0-39.9 without comorbidity) Obesity, unspecified Lateral epicondylitis of right elbow- Primary Lateral epicondylitis of elbow [facility] Diagnostic Procedure Only (Routine) - Closed Specialty Diagnoses / Procedures Referred By Scott berg Referred To Contact XR IMAGING Diagnoses Pain Procedures XR FOREARM GENERAL 2V AP/LAT RIGHT RADEX FOREARM 2 VIEWS Raudel Deras, [address] [place] [address] [place] [address] Referral ID Status Reason Start Date Expiration Date V isits Requested Visits Authorized [id number] Closed Auto-Generate d Referral 03/01/2023 03/30/2024 1 1 [facility])No reason for referral information availableWOhioHealth [facility] Work Phone: Reason for visit Narrative* Diagnostic Procedure Only (Routine) - Closed Specialty Diagnoses / Procedures Referred By Scott berg Referred To Contact XR IMAGING Diagnoses Pain Procedures XR FOREARM GENERAL 2V AP/LAT RIGHT RADEX FOREARM 2 VIEWS Raudel Deras DO [address] [place] [address] [place] [address] Referral ID Status Reason Start Date Expiration Date V isits Requested Visits Authorized [id number] Closed Auto-Generate d Referral 03/01/2023 03/30/2024 1 1 [facility] Summary Purpose Family History No Family History Records Found Relationship Condition Age at Onset Recorded Date/T blas Not Specified Cardiac disease Unknown Myocardial infarction Unknown Advance Directives No Advanced Directives Records Found Advance Directive Response Recorded Date/ Time Living Will No June 08 11:55am Power of Client Program Manager No June 08, 2022 11:55am Advance Directive Response Recorded Date/ Time Living Will No June 27 3:01pm Power of Client Program Manager No June 27, 2023 3:01pm Chief Complaint and Reason for Visit Chief Complaint ABD Chief Complaint Amb Documentation EORDER Chief Complaint Amb Documentation EORDER EORDER Reason for Visit Encounter for screen ing for malignant neoplasm of colon Chief Complaint Admit Date EORDERS August 20, 2024 7:1 9am Reason for Referral Specialty Diagnoses / Procedures Referred By Scott berg Referred To Contact [facility] Diagnoses Ulnar neuritis, right Lateral epicondylitis of right elbow 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 COMPLEX 60 MINS Raudel Deras DO [address] [place] [address] [facility] [address] [place] [address] Referral ID Status Reason Start Date Expiration Date Visits Requested Visits Authorized [id number] Pending Review Auto-Generat ed Referral 3 04/06/2024 [...] Records FoundNo Status Records FoundNo Status Records FoundNo Status Records Found INFORMATION SOURCE (unrecogn ized section and content) DATE CREATED AUTHOR 09/24/2021 [facility] DATE CREATED AUTHOR AUTHOR'S ORGANIZ ATION 04/10/2023 [facility] DATE CREATED AUTHOR AUTHOR'S ORGANIZ ATION 08/12/2024 [facility] DATE CREATED AUTHOR AUTHOR'S ORGANIZ ATION 08/26/2024 [facility] Goals (unrecognized section and content) Goals may be documented in a n alternate sectionGoals may be documented in an alternate sectionGoals may be documented in an alternate sectionGoals may be documented in an alternate section Source Comments (unrecognize d section and content) In the event this informatio n is protected by the Federal Confidentiality of Alcohol and Drug Abuse Patient Records regulations: The Federal rules restrict any use of the information to criminally investigate or prosecute any alcohol or drug abuse patient.[facility] the event this information is protected by the Federal Confidentiality of Alcohol and Drug Abuse Patient Records regulations: The Federal rules restrict any use of the information to criminally investigate or prosecute any alcohol or drug abuse patient.[facility] the event this information is protected by the Federal Confidentiality of Alcohol and Drug Abuse Patient Records regulations: The Federal rules restrict any use of the information to criminally investigate or prosecute any alcohol or drug abuse patient.[facility] the event this information is protected by the Federal Confidentiality of Alcohol and Drug Abuse Patient Records regulations: The Federal rules restrict any use of the information to criminally investigate or prosecute any alcohol or drug abuse patient.[facility] the event this information is protected by the Federal Confidentiality of Alcohol and Drug Abuse Patient Records regulations: The Federal rules restrict any use of the information to criminally investigate or prosecute any alcohol or drug abuse patient.[facility] the event this information is protected by the Federal Confidentiality of Alcohol and Drug Abuse Patient Records regulations: The Federal rules restrict any use of the information to criminally investigate or prosecute any alcohol or drug abuse patient.[facility] Reason for Visit (unrecogniz ed section and content) Reason Comments Established Patient Pain Reason Comments Appointment Change Reason Comments Established Patient Follow Up Reason Comments Pain Follow Up Injections Care Teams (unrecognized sec tion and content) Filtration Supervisor Relationship Specialty Start Date End Date Katlyn Galvez MD [address] [facility] [address] [place], [place] [id number] PCP - General Family Medicine 05/07/16 Filtration Supervisor Relationship Specialty Start Date End Date Katlyn Galvez MD [address] [facility] [place], [place] [address] PCP - General Family Medicine 05/07/16 Team Status: Active Member Role Status Dates Dr. Leonides Galvez MD Family Provider Active Dr. Leonides Galvez MD Primary Care Provider Activ e Team Status: Active Member Role Status Dates Dr. Leonides Galvez MD Primary Care Provider Activ e Jena Melton Attending Provider Active Team Status: Inactive Member Role Status Dates Dr. Leonides Galvez MD Primary Care Provider, Attending Provider, Referring Provider Active Team Status: Active Member Role Status Dates Dr. Leonides Galvez MD Primary Care Provider Activ e Dr. Myles Childress DO Attending Provid er, Referring Provider, Other Provider Active Team Status: Inactive Member Role Status Dates Dr. Leonidse Galvez MD Primary Care Provider Activ e Dr. Myles Childress DO Attending Provider, Referring Provider Active Filtration Supervisor Relationship Specialty Start Date End Date Katlyn Galvez MD [address] [facility] [place], [place] [address] PCP - General Family Medicine 05/07/16 Filtration Supervisor Relationship Specialty Start Date End Date Katlyn Galvez MD [address] [place] [address] PCP - General Family Medicine 05/07/16 Filtration Supervisor Relationship Specialty Start Date End Date Katlyn Galvez MD [address] [place] [address] PCP - General Family Medicine 05/07/16 Filtration Supervisor Relationship Specialty Start Date End Date Katlyn Galvez MD [address] [place], [place] [id number] PCP - General Family Medicine 05/07/16 Team Status: Active Member Role Status Dates Dr. Katlny Galvez MD Family Provider Active Dr. Katlyn Galvez MD Primary Care Provider Acti ve Team Status: Inactive Member Role Status Dates Dr. Katlyn Galvez MD Primary Care Provider Acti ve Start: August 20, 2024 End: August 20, 2024 Dr. Katlyn Galvez MD Attending Provider Active Start: August 20, 2024 End: August 20, 2024 Dr. Katlyn Galvez MD Referring Provider Active Start: August 20, 2024 End: August 20, 2024 FOR RECORDS PERTAINING TO PATIENTS WHO ARE [...] BE BASED ON THE PRIMARY CLINICAL RECORDS. [facility]. provides no warranty or guarantee of the accuracy or completeness of information in this document.
[2025-04-28 10:45] LABS: AST(SGOT) 30 U/L (<=37); Alanine Aminotransfer ALT/SGPT 42 U/L (<=46); Albumin, Serum 4.1 g/dL (3.5-5.0); Alkaline Phosphatase 91 U/L (40-129); Bilirubin, Direct 0.34 mg/dL (0.00-0.30); Cholesterol 202 mg/dL (<=200); Globulin 2.7 g/dL (2.2-4.2); Low Density Lipoprotein Calc. 136 mg/dL; Triglycerides 94 mg/dL; Very Low Density Lipoprotein 19 mg/dL (5-40); cholesterol:hdl ratio screen 4.11
== END | disposition home or self-care (01) ==
LOC: MTLAB 07:36
PROVIDERS: PCP Family Medicine; Referring Provider Family Medicine; Visit Provider Family Medicine
DX: E78.5 Hyperlipidemia, unspecified (principal); R79.89 Other specified abnormal findings of blood chemistry
CPT/HCPCS: 36415; 80061; 80076